=== PATIENT | male | born 1945 | race Caucasian/White ===

== ENCOUNTER 2023-09-19 08:39 | Outpatient (OUT) | payer MEDICARE, SELFPAY ==
--- NOTE | 2023-09-19 09:09 | US_ITS ---
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 FINDINGS: REGION: Right leg THROMBI: None. COMPRESSIBILITY: Normal compressibility. FLOW: Normal waveform and antegrade flow between 5 and 20 cm/s. OTHER: None. US/US venous doppler LE RT IMPRESSION: 1. No deep vein thrombus within the right lower extremity. Electronically authenticated by: FLORENCE NEWMAN Date: 09/19/2023 10:31
== END 2023-09-19 08:40 | disposition home or self-care (01) ==
LOC: RAD 08:53
PROVIDERS: PCP Family Medicine; Visit Provider Family Medicine
DX: M79.604 Pain in right leg (principal); I87.2 Venous insufficiency (chronic) (peripheral)
CPT/HCPCS: 93971

== ENCOUNTER 2023-10-09 07:20 | Outpatient (OUT) | payer MEDICARE, SELFPAY ==
[2023-10-09 08:05] LABS: Alanine Aminotransferase 29 U/L (16-63); Anion Gap 8.1; Aspartate Amino Transferase 20 U/L (15-37); BUN Creatinine Ratio 23.7; Calcium 8.9 mg/dL (8.5-10.1); Carbon Dioxide 32.8 mmol/L (21.0-32.0); Chloride 104 mmol/L (98-107); Chol HDL Ratio 1.9; Cholesterol 129 mg/dL (<=200); Estimated GFR (African America >60 (>=60); Estimated GFR (Non-African Ame >60 (>=60); Glucose 100 mg/dL (74-106); HDL Cholesterol 67 mg/dL (40-60); Potassium 3.9 mmol/L (3.5-5.1); Sodium 141 mmol/L (136-145); Triglycerides 82 mg/dL (<=150); VLDL CHOLESTEROL 16.4 mg/dL
== END 2023-10-09 07:21 | disposition home or self-care (01) ==
LOC: LAB 07:22
PROVIDERS: PCP Family Medicine; Visit Provider Nurse Practitioner
DX: E78.5 Hyperlipidemia, unspecified (principal)
CPT/HCPCS: 36415; 80048; 80061; 84450; 84460

== ENCOUNTER 2023-11-23 08:24 | Outpatient (RCR) | payer MEDICARE, SELFPAY | END 2023-12-01 12:25 | disposition home or self-care (01) | LOC: PT 08:24 | PROVIDERS: PCP Family Medicine; Visit Provider Family Medicine | DX: M54.42 Lumbago with sciatica, left side (principal); M51.37 Other intervertebral disc degeneration, lumbosacral region | CPT/HCPCS: 97110; 97140; 97162 ==

== ENCOUNTER 2023-12-08 07:20 | Outpatient (OUT) | payer MEDICARE, SELFPAY ==
--- OUTSIDE RECORDS SUMMARY | 2023-12-08 07:24 | XMS_ITS | CCD ---
Author Name Unknown Address [address] [place] [address] Organization [facility] Care Team Providers Care Radar Scientist Name Role Phone Grady Romeo Unavailable Unavailable Unavailable MAGDI, DR STRICKLAND Admitting Unavailable MAGDI, DR STRICKLAND Attending Unavailable AGUEDA, DR DUONG Primary Care Unavailable MAGDI, DR STRICKLAND Consulting Unavailable ZAC, DR KIM Walsh Consulting Unavailable EDIE NAGEL Admitting Unavailable EDIE NAGEL Attending Unavailable AGUEDA, DR DUONG Primary Care Unavailable EDIE NAGEL Consulting Unavailable Grady Romeo Primary Care Unavailab ALEJANDRO Benitez Attending Unavailable ALEJANDRO Pryor Referring Unavailable GRADY ROMEO Primary Care Physician Unavail able MD Cj LICONA Attending Unavailable MD Cj LICONA Attending Unavailable MD Grady Romeo Primary Care Provider MD Ender Aguilar Jr Emergency Provider GRADY ROMEO Attending Unavailable GRADY ROMEO Attending Unavailable Grady Romeo MD Primary Care Provider DOV MAZA Attending Unavailable GRADY ROMEO Primary Care Unavailab Ender Cintron Jr Admitting Unavailable Grady Romeo Primary Care Unavailable Ender Aguilar Jr Attending Grady Hernandez Attending Unavailable Grady Romeo Primary Care Unavailable Grady Romeo Admitting Unavailable MD Grady Romeo Attending Provider [phone] Allergies Allergy Classification Reported Allergen(s) Allergy Type Date of Onset Reaction(s) Facility (7 sources) Clarithromycin; Translations: [clarithromycin] Drug Allergy 3 Unknown [facility] (1 source) Clarithromycin Drug Allergy [facility] (1 source) Finasteride Drug Allergy [facility] (1 source) Naproxen Drug Allergy [facility] (1 source) Erythromycin Drug Allergy 3 [facility] Repository Medications Current Medications Medication Drug Class(es) Dates Sig (Normalized) Sig (Original) acetaminophen 325 mg / HYDROcodone bitartrate 5 mg oral tablet (2 sources) Opioid Agonist Start: 09-11-2023 take 1 tablet by mouth every six hours Hydrocodone-Acet aminophen Active 1 - 2 TAB PO Q6H 15 September 11, 2023 aspirin 81 mg oral tablet (7 sources) Platelet Aggregation Inhibitor, Nonsteroidal Anti-inflammatory Drug Start: 08-07-2020 take 81 mg by mouth once daily Aspirin Active 81 MG PO Daily July 28, 2021 11:00pm take 1 tablet by mouth once bulmaro y aspirin 81 mg EC tablet Take 1 tablet (81 mg) by mouth once daily. 0 Active atorvastatin 40 mg oral tablet (8 sources) HMG-CoA Reductase Inhibitor Start: 08-07-2020 End: 10-18-2024 take 1 tablet by mouth once daily atorvastatin (Lipitor) 40 mg tablet Indications: Mixed hyperlipidemia Take 1 tablet (40 mg) by mouth once daily. 90 tablet 3 10/19/2023 10/18/2024 Active bifidobacterium animalis [id number] unt / lactobacillus acidophilus [id number] unt oral capsule (4 sources) L. acidophilus/Bifid. animalis 32 billion cell capsule Take by mouth. 0 Active Probiotic CAPS 1 00 mg daily Quantity: 0 Refills: 0 Ordered: 08-Oct-2021 DO Active docusate sodium 50 mg / sennosides, longterm 8.6 mg oral tablet (2 sources) Start: 09-11-2023 take 2 tablets by mouth once daily at bedtime Sennosides-Docusate Sodium (Senna Plus) 8.6-50 mg tablet Active 2 TAB PO Daily at bedtime September 11, 2023 12:00am Lactobacillus acidophilus (1 source) Start: 08-07-2020 Acidophilus Daily, Refill(s) 0 Start Date: 08/07/20 Status: Ordered Lactobacillus Combination No.4 (Probiotic) 3 billion cell Capsule (2 sources) Start: 07-29-2021 take 3 capsules by mouth once daily Lactobacillus Combination No.4 (Probiotic) 3 billion cell Capsule Active 3000 MMU CELLS PO Daily July 28, 2021 11:00pm methylPREDNISolone 4 mg oral tablet (2 sources) Corticosteroid Start: 09-11-2023 take 1 tablet by mouth once Methylprednisolone (Medrol (Carmine)) 4 mg tablets,dose pack Active 1 dose pk PO per package directions September 11, 2023 12:00am Multivitamin preparation (2 sources) Start: 07-29-2021 take 1 tablet by mouth once daily Multivitamin Active 1 TAB PO Daily July 28, 2021 11:00pm multivitamin with iron (pediatric multivitamin-iron) tablet chewable split tablet (1 source) multivitamin wit h iron (pediatric multivitamin-iron) tablet chewable split tablet Take 1 half tablet by mouth once daily. 0 Active Omeprazole (7 sources) Proton Pump Inhibitor Start: 09-20-2021 omeprazole Oral, Daily, Refills(s) 0 Start Date: 09/20/21 Status: Ordered Start: 07-29-2021 take 40 mg by mouth twice bulmaro y Omeprazole Active 40 MG PO Twice daily 112 56 July 28, 2021 11:00pm One-A-Day REGISTRAT-MAPI Formu la (1 source) Start: 08-07-2020 One-A-Day Lavaboom Formula Oral, Daily, Refill(s) 0 Start Date: 08/07/20 Status: Ordered Completed/Discontinued Medications Medication Drug Class(es) Dates Sig (Normalized) Sig (Original) Multi Vitamin TABS (3 sources) Multi Vitamin TA BS TAKE 1 TABLET DAILY. Quantity: 0 Refills: 0 Ordered: 08-Oct-2021 DO Active Problems Active Problems Problem Classification Problem Date Documented Da te Episodic/Chronic Acute myocardial infarction (1 source) Myocardial infarction 08-07-2020 Chronic Calculus of urinary tract (6 sources) Calculus of kidney; Translations: [Kidney stone] Onset: 09-12-2022 Episodic Coronary atherosclerosis and other heart disease (14 sources) History of myocardial infarction; Translations: [Old myocardial infarction] Onset: 10-10-2022 Chronic Disorders of lipid metabolism (9 sources) Hyperlipidemia; Translations: [Other and unspecified hyperlipidemia] Onset: 10-15-2022 08-07-2020 Chronic Essential hypertension (4 sources) Essential hypertension; Translations: [Essential (primary) hypertension] Onset: 10-19-2023 10-19-2023 Chronic Genitourinary symptoms and ill-defined conditions (3 sources) Nocturia; Translations: [Nocturia] Onset: 12-12-2022 Episodic Hyperplasia of prostate (10 sources) Benign prostatic hyperplasia; Translations: [Hypertrophy (benign) of prostate without urinary obstruction and other lower urinary tract symptom (LUTS)] Onset: 10-15-2022 Chronic Other circulatory disease (1 source) Cardiac function test normal; Translations: [Normal cardiac ejection fraction] Episodic Other circulatory disease (1 source) Elevated blood-pressure reading without diagnosis of hypertension; Translations: [Elevated blood-pressure reading, without diagnosis of hypertension] Onset: 10-19-2023 10-19-2023 Episodic Other connective tissue disease (2 sources) Pain in right lower limb; Translations: [Pain in right leg] 09-11-2023 Episodic Other connective tissue disease (1 source) Other symptoms and signs involving the nervous system; Translations: [Other symptoms and signs involving the nervous system] Onset: 11-10-2023 Episodic Other connective tissue disease (1 source) Pain in left lower limb; Translations: [Pain in left leg] Onset: 09-11-2023 Episodic Other connective tissue disease (1 source) Pain in right leg; Translations: [Pain in right leg] Onset: 09-11-2023 Episodic Other nervous system disorders (1 source) Other chronic pain; Translations: [Other chronic pain] Onset: 11-10-2023 Chronic Other nutritional; endocrine; and metabolic disorders (4 sources) Overweight in adulthood with body mass index of 25 or more but less than 30; Translations: [Overweight] Episodic Other screening for suspected conditions (not mental disorders or infectious disease) (1 source) Raised prostate specific antigen 03-02-2021 Episodic Spondylosis; intervertebral disc disorders; other back problems (1 source) Other intervertebral disc degeneration, lumbar region; Translations: [Other intervertebral disc degeneration, lumbar region] Onset: 11-10-2023 Chronic Spondylosis; intervertebral disc disorders; other back problems (5 sources) Lumbar radiculopathy; Translations: [Radiculopathy, lumbar region] Onset: 09-11-2023 09-11-2023 Episodic Past or Other Problems Problem Classification Problem Date Documented Da te Episodic/Chronic Unclassified (3 sources) Never smoked tobacco; Translations: [Never a smoker] Unclassified (1 source) Onset: 10-19-2023 10-19-2023 Results Test Name Value Interpretation Reference Range Facility XR lumbar spine AP/LAT/FLX/E XTon 11-10-2023 XR lumbar spine AP/LAT/FLX/EXT [facility] Main [address] [address] XRay Report Signed Patient: Farrukh Babb MR#: [id number] : 1945 Acct:[id number] Age/Sex: 78 / M ADM Date: 11/10/23 Loc: XD Room: Type: [facility] Attending Dr: Grady Romeo MD Copies to: Grady Romeo MD Ordering Provider: Grady Romeo MD Date of Service: 11/10/23 XR/XR lumbar spine AP/LAT/FLX/EXT: Evaluation of chronic back pain AP with lateral neutral, flexion and extension views Lumbar Spine HISTORY: Chronic back pain with radiation into legs COMPARISON: 09/11/2023 POSTSURGICAL CHANGES: None BONY ALIGNMENT: Adequate HYPERMOBILITY:No hypermobility LISTHESIS:Minor degenerative listhesis FRACTURE: None DEGENERATIVE CHANGES: Extensive L5-S1 spondylosis. Lower lumbar hypertrophic facet changes. SOFT TISSUES: Atherosclerosis. BONY MINERALIZATION:Adequat e XR/XR lumbar spine AP/LAT/FLX/EXT IMPRESSION: No hypermobility. Similar Lower lumbar degeneration Impression dictated by: Bg Gurrola M.D.11/10/2023 9:29 PM Dictation Location: [place] [address] Transcribed By: [facility] 11/10/232128 Dictated By: Bg Gurrola DO 11/10/232126 Signed By: 11/10/232128 Normal [facility] XR hip RT min 2V(w/wo pelvis )*on 09-11-2023 XR hip RT min 2V(w/wo pelvis)* [facility] Main [address] [address] XRay Report Signed Patient: Farrukh Babb MR#: [id number] : 1945 Acct:[id number] Age/Sex: 78 / M ADM Date: 09/11/23 Loc: ER Room: Type: [facility] ER Attending Dr: Copies to: Ender Aguilar Jr, MD Ordering Provider: Ender Aguilar Jr, MD Date of Service: 09/11/23 XR/XR hip RT min 2V(w/wo pelvis)*: R hip pain rad down leg XR hip RT min 2V(w/wo pelvis)* 09/11/2023 2:54 AM SIGNS AND SYMPTOMS: Right hip pain, right inguinal pain, pain radiates down right leg PROTOCOL: Frontal radiograph of the pelvis with frontal and frog-leg views of the right hip COMPARISON: None FINDINGS: The bones are in anatomic alignment. The bony ring of the pelvis is intact. There is no fracture or dislocation. Postoperative changes are noted along the lower abdominal wall suggesting previous hernia repair. XR/XR hip RT min 2V(w/wo pelvis)* IMPRESSION: No fracture or dislocation. Impression dictated by: Micheal Jett M.D.09/11/2023 11:03 AM Dictation Location: [place] [address] Transcribed By: [facility] 09/11/23 1103 Dictated By: Micheal Jett II, MD 09/11/23 1101 Signed By: 09/11/23 1103 Normal [facility] XR lumbar spine 2-3V*on XR lumbar spine 2-3V* [facility] [place] [address] XRay Report Signed Patient: Farrukh Babb MR#: [id number] : 1945 Acct:[id number] Age/Sex: 78 / M ADM Date: 09/11/23 Loc: ER Room: Type: [facility] ER Attending Dr: Copies to: Ender Aguilar Jr, MD Ordering Provider: Ender Aguilar Jr, MD Date of Service: 09/11/23 XR/XR lumbar spine 2-3V*: R hip pain rad down leg XR lumbar spine 2-3V* 09/11/2023 2:54 AM SIGNS AND SYMPTOMS: R hip pain rad down leg PROTOCOLS: Frontal and lateral radiographs of the lumbar spine COMPARISON: 05/02/2005 FINDINGS: The alignment, development and bony structures are normal. There is no fracture or destructive lesion. There is severe disc height loss at L5-S1. There is mild disc height loss with anterior osteophyte formation at T11-T12. The sacrum and sacroiliac joints are normal. Atherosclerotic changes are present in the abdominal aorta. XR/XR lumbar spine 2-3V* IMPRESSION: No fracture or subluxation. Similar disc degenerative changes are noted, greatest at L5-S1. Impression dictated by: Micheal Jett M.D.09/11/2023 11:04 AM Dictation Location: [place] [address] Transcribed By: [facility] 09/11/231103 Dictated By: Micheal Jett II, MD 09/11/231102 Signed By: 09/11/231103 [facility] Ambulatory Visit Summaryon 0 12-12-2022 Ambulatory Visit Summary FARRUKH BABB :1945 Visit Date:12/12/2022 Ambulatory Visit Instructions Your Diagnosis BPH with obstruction/lower urinary tract symptoms Nocturia Kidney stones Tests Performed Urnls Dip Stick Auto w/o Microscopy POC 14251 XR Abdomen 1 View -- Results Pending -- Please visit your patient portal for your results or contact your primary care physician. Your Care Team Attending Physician - MAGDI MAHONEY, Cj Dwyer Primary Care Physician - AGUEDA MAHONEY, GRADY Garcia This Is Your Medications List Contact prescribing physician if questions or concerns aspirin (aspirin 81 mg oral tablet) atorvastatin (atorvastatin 40 mg Tab) lactobacillus acidophilus (Acidophilus) multivitamin (One-A-Day Men's Health Formula) omeprazole Procedures Performed Endoscopy (08/20/2021), Colonoscopy (08/06/2021), Transurethral resection of prostate (03/25/2021), Cystoscope (03/02/2021), Transrectal biopsy of prostate using ultrasound (US) guidance (08/25/2020), Transrectal biopsy of prostate using ultrasound (US) guidance (04/04/2017), Appendectomy, IH - Inguinal hernia, Neck class, Tonsillectomy. Discharge Vitals Heart Rate (Peripheral) 70 Respiratory Rate 16 Blood Pressure 132/74 Height 180 cm Height 71 in Weight 81.8 kg Weight 179.96 lb BMI 25.25 What to do next Scheduled Follow-Up Appointments Monday 9:45 AM EST With: Cj LICONA MD Where: [facility] Normal [facility] Patient Educationon 12-12-19 23 Patient Education Urology Kidney Stones Kidney stones are rock-like masses that form inside of the kidneys. Kidneys are organs that make pee (urine). A kidney stone may move into other parts of the urinary tract, including: ? The tubes that connect the kidneys to the bladder (ureters). ? The bladder. ? The tube that carries urine out of the body (urethra). Kidney stones can cause very bad pain and can block the flow of pee. The stone usually leaves your body (passes) through your pee. You may need to have a doctor take out the stone. What are the causes? Kidney stones may be caused by: ? A condition in which certain glands make too much parathyroid hormone (primary hyperparathyroidism). ? A buildup of a type of crystals in the bladder made of a chemical called uric acid. The body makes uric acid when you eat certain foods. ? Narrowing (stricture) of one or both of the ureters. ? A kidney blockage that you were born with. ? Past surgery on the kidney or the ureters, such as gastric bypass surgery. What increases the risk? You are more likely to develop this condition if: ? You have had a kidney stone in the past. ? You have a family history of kidney stones. ? You do not drink enough water. ? You eat a diet that is high in protein, salt (sodium), or sugar. ? You are overweight or very overweight (obese). What are the signs or symptoms? Symptoms of a kidney stone may include: ? Pain in the side of the belly, right below the ribs (flank pain). Pain usually spreads (radiates) to the groin. ? Needing to pee often or right away (urgently). ? Pain when going pee (urinating). ? Blood in your pee (hematuria). ? Feeling like you may vomit (nauseous). ? Vomiting. ? Fever and chills. How is this treated? Treatment depends on the size, location, and makeup of the kidney stones. The stones will often pass out of the body through peeing. You may need to: ? Drink more fluid to help pass the stone. In some cases, you may be given fluids through an IV tube put into one of your veins at the hospital. ? Take medicine for pain. ? Make changes in your diet to help keep kidney stones from coming back. Sometimes, medical procedures are needed to remove a kidney stone. This may involve: ? A procedure to break up kidney stones using a beam of light (laser) or shock waves. ? Surgery to remove the kidney stones. Follow these instructions at home: Medicines ? Take sptx-jye-woeoxln and prescription medicines only as told by your doctor. ? Ask your doctor if the medicine prescribed to you requires you to avoid driving or using heavy machinery. Eating and drinking ? Drink enough fluid to keep your pee pale yellow. You may be told to drink at least 8?10 glasses of water each day. This will help you pass the stone. ? If told by your doctor, change your diet. This may include: ? Limiting how much salt you eat. ? Eating more fruits and vegetables. ? Limiting how much meat, poultry, fish, and eggs you eat. ? Follow instructions from your doctor about eating or drinking restrictions. General instructions ? Collect pee samples as told by your doctor. You may need to collect a pee sample: ? 24 hours after a stone comes out. ? 8?12 weeks after a stone comes out, and every 6?12 months after that. ? Strain your pee every time you pee (urinate), for as long as told. Use the strainer that your doctor recommends. ? Do not throw out the stone. Keep it so that it can be tested by your doctor. ? Keep all follow-up visits as told by your doctor. This is important. You may need follow-up tests. How is this prevented? To prevent another kidney stone: ? Drink enough fluid to keep your pee pale yellow. This is the best way to prevent kidney stones. ? Eat healthy foods. ? Avoid certain foods as told by your doctor. You may be told to eat less protein. ? Stay at a healthy weight. Where to find more information ? National Kidney Foundation (NKF): www.kidney.org ? [employer] (UCF): www.urologyhealth.org Contact a doctor if: ? You have pain that gets worse or does not get better with medicine. Get help right away if: ? You have a fever or chills. ? You get very bad pain. ? You get new pain in your belly (abdomen). ? You pass out (faint). ? You cannot pee. Summary ? Kidney stones are rock-like masses that form inside of the kidneys. ? Kidney stones can cause very bad pain and can block the flow of pee. ? The stones will often pass out of the body through peeing. ? Drink enough fluid to keep your pee pale yellow. This information is not intended to replace advice given to you by your health care provider. Make sure you discuss any questions you have with your health care provider. Document Released: 04/10/2009 Document Revised: 03/10/2020 Document Reviewed: 03/10/2020 dooub Patient Education ? 2019 [employer]. [facility] Urology Office/Clinic Noteon 12-12-2022 Urology Office/Clinic Note Chief Complaint 1 year with KUB HPI Staff Pt is her for 1 year f/u with KUB. Previous dx of BPH with obstruction/ LUTS, nocturia, urinary urgency and kidney stones. Current KUB done 09/12/22 showed a 7mm right nephrolith. Dysuria: no Incomplete bladder emptying: no Hematuria: no Frequency: no Urgency: no Nocturia: 2-3x Stream: good no straining Leaking: no Post void dripping: no Wearing pads/ Depends: no Urge incontinence: no Stress incontinence: no Incontinence without Sensory Awareness: no Abdominal pain: no Flank pain: no Sexual complaints: no History of Present Illness I have reviewed and verified the staff HPI to be accurate for this encounter. Review of Systems PHQ Score Initial Depression Screen Score: 0 ROS - Provider Constitutional: denies weight loss, denies hot flashes. Eyes: denies eye problems. Gastrointestinal: denies nausea, denies vomiting. Cardiovascular: denies chest pain or angina. Integumentary: no dryness Musculoskeletal: denies musculoskeletal symptoms. ENMT: denies otolaryngeal symptoms. Respiratory: no shortness of breath. Heme/Lymph: denies easy bleeding tendency, denies easy bruising tendency. Psychiatric: no confusion, no anxiety. Genitourinary: denies dysuria, denies hematuria, denies discharge, denies urinary frequency, denies urinary hesitancy, denies nocturia, denies incontinence, denies genital sores, denies decreased libido, and denies erectile dysfunction. Physical Exam Vitals & Measurements HR: 70(Peripheral) RR: 16 BP: 132/74 HT: 71 in HT: 180 cm WT: 81.8 kg WT: 179.96 lb BMI: 25.25 General Appearance: alert, no distress, well nourished, well developed male. Genitourinary: normal scrotum, normal testes, normal urethra, normal epididymis, normal vas deferens/spermatic cord. Flank Pain: none. Bladder: nonpalpable. Assessment/Plan 1. BPH with obstruction/lower urinary tract symptoms (N40.1: Benign prostatic hyperplasia with lower urinary tract symptoms) S/p TURP done 03/25/21. Negative pathology report Pt is currently not taking any BPH meds. PSA was done 09/01/21 1.33. S/P TRUS/BX done 03/25/20, Negative path. We are no longer checking pt's PSA. Overall pt has no urinary complaints at this time. Will continue to monitor. 2. Nocturia (R35.1: Nocturia) Moderate, 2-3 times per night. He is also a light sleeper, and has been doing this for many years. 3. Kidney stones (N20.0: Calculus of kidney) S/P R. ESWL 06/10/21. Current KUB done 09/12/22 showed a 7mm right nephrolith. and possible Left 2mm calcification lateral to the left L4 transverse process. Discussed with pt that we will check a KUB in 1 year and if his stone continues to grow we will need to intervene. Pt understands and agrees. Follow-up With When Contact Information MAGDI MAHONEY, Cj Dwyer, ANTONY In 1 year 12/12/2023 EST [facility] [address], [place] [address] [phone] Additional Instructions: KUB Patient Education Kidney Stones, [id number] Jeaneth Chicas, personally scribed for Dr. Licona on 12/12/2022 13:32:19. . Documentation recorded by the scribe, Jeaneth Adam, accurately reflects the services(s) I performed and decisions made by me. Problem List/Past Medical History Ongoing BPH with obstruction/lower urinary tract symptoms Elevated cholesterol Elevated PSA Gross hematuria Kidney stones Myocardial infarct Nocturia Historical No qualifying data Procedure/Surgical History Endoscopy (08/20/2021), Colonoscopy (08/06/2021), Transurethral resection of prostate (03/25/2021), Cystoscope (03/02/2021), Transrectal biopsy of prostate using ultrasound (US) guidance (08/25/2020), Transrectal biopsy of prostate using ultrasound (US) guidance (04/04/2017), Appendectomy, IH - Inguinal hernia, Neck class, Tonsillectomy. Medications Acidophilus, Daily aspirin 81 mg oral tablet, Oral, Daily atorvastatin 40 mg Tab, Oral, Bedtime omeprazole, Oral, Daily One-A-Day Men's Health Formula, Oral, Daily Allergies clarithromycin (Nervousness) Social History Tobacco Never (less than 100 in lifetime) Tobacco Use:., 09/20/2021 Never (less than 100 in lifetime) Tobacco Use:. Never Smokeless Tobacco Use:., 03/02/2021 Family History Myocardial infarct: Father. Immunizations Vaccine Date Status SARS-CoV-2 (COVID-19) mRNA BNT-162b2 vax 01/01/2021 Recorded SARS-CoV-2 (COVID-19) mRNA BNT-162b2 vax 12/11/2020 Recorded influenza virus vaccine, inactivated 08/06/2020 Recorded Lab Results Ambulatory Point of Care Results Bilirubin Urine Dipstick: Negative (12/12/22 12:41:00) Glucose Urine Dipstick: Negative (12/12/22 12:41:00) Ketones Urine Dipstick: Trace - 5 mg/dl (12/12/22 12:41:00) Leukocytes Urine Dipstick: Negative (12/12/22 12:41:00) Nitrite Urine Dipstick: Negative (12/12/22 12:41:00) Protein Urine Dipstick: Negative (12/12/22 12:41:00) Specific Bear Urine (more content not included)... Normal [facility] Comment on above: Result Comment: Elec tronically Signed By: Cj LICONA MD\.br\Date and Time Signed: 12/12/22 13:35 EST\.br\Electronically Co-Signed By: Jeaneth Adam MA\.br\Date and Time Co-Signed: 12/12/22 13:32 EST Office Visit (Cardiology)on 10-19-2022 Follow-up visit Diagnoses/Problems Assessed Normal coronary angiogram (V72.85) 2007 cardiac cath with angiographically normal coronaries Current daily activity greater than 4 METS without concerning symptoms Normal cardiac ejection fraction 2007 cardiac cath LVEF 50% Hyperlipidemia (272.4) (E78.5) High intensity statin Managed by [facility] October 2022 HDL 53, LDL 41 Overweight with body mass index (BMI) of 25 to 25.9 in adult (278.02,V85.21) (E66.3,Z68.25) Reviewed the merits of healthy lifestyle choices on overall cardiovascular health. Orders Hyperlipidemia Renew: Atorvastatin Calcium 40 MG Oral Tablet; TAKE 1 TABLET DAILY Hyperlipidemia, Normal cardiac ejection fraction, Normal coronary angiogram ALT - Alanine Aminotransferase, Serum; Status:Active; Requested for:[id number]; AST; Status:Active; Requested for:[id number]; Basic Metabolic Panel; Status:Active; Requested for:[id number]; Lipid Panel; Status:Active; Requested for:[id number]; Overweight with body mass index (BMI) of 25 to 25.9 in adult Healthy Weight Tips; Status:Complete; Done: [id number] Patient Instructions Please bring all medicines, vitamins, and herbal supplements with you when you come to the office. Prescriptions will not be filled unless you are compliant with your follow up appointments or have a follow up appointment scheduled as per instruction of your physician. Refills should be requested at the time of your visit. PLAN: Through informed decision making process incorporating patients unique circumstances, the following treatment plan will be initiated: 1. Prescription drug management of cardiovascular medication for efficacy, adherence to treatment, side effect assessment and polypharmacy. Current treatment clinically warranted and to continue without modifications. 2. Return for follow-up; in the interim, contact the office if new symptoms arise. Dr. Maza annual f/u with labs prior Discussed the dynamic nature of coronary artery disease and the importance of seeking medical attention if new symptoms arise. Chief Complaint Annual f/u: 'I am doing fine' FARRUKH BABB is being seen for an annual follow-up of primary prevention. Patient presents to the office today ambulatory with steady gait. Last evaluated in clinic Dr. Lorenzana October 2021. He has followed routinely with Dr. Lorenzana since 2008 hospitalization for atypical chest pain and at that time cardiac cath angiographically normal coronaries with normal LVEF. He has managed primarily for primary prevention. No prior history of myocardial infarction, cardiomyopathy or dysrhythmias. Annual labs completed October 2022 including Chem-6 lipid profile AST, ALT. Unremarkable. He denies any hospitalizations or significant changes to interval medical history since last office follow-up. He does not follow routinely with primary care physician. He has been seen by urology due to asymptomatic nephrolithiasis and reports GI work-up over the summer. He has extremely pleasant 77-year-old gentleman who resides home alone. He attends to his own ADLs and functional ADLs. 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 He has no stairs at home. He is able to go to the grocery store, mow the lawn with a push mower without any type of exertional symptoms. He ambulated in from the parking lot without concerns. He denies any change in exercise capacity or functional tolerance since last office follow-up. Primary prevention has been remaining viewed and remains optimal. Discussed the dynamic nature of coronary artery disease and the importance of seeking medical attention if new symptoms arise. History of Present Illness The patient states he has been generally doing well since the last visit. Comorbid Illnesses: hyperlipidemia. Symptoms: denies chest pain at rest, denies exertional chest pain, denies dyspnea, denies fatigue, stable exercise intolerance, denies palpitations, denies edema, denies orthopnea, denies claudication, denies dizziness and denies orthostatic dizziness. Associated symptoms: no syncope. His symptoms do not limit his activities. Disease Monitoring: The patient has had a stable weight. Medications: the patient is adherent with his medication regimen. He denies medication side effects. Current Meds Medication NameInstruction Aspirin EC 81 MG Oral Tablet Delayed ReleaseTAKE 1 TABLET DAILY. Atorvastatin Calcium 40 MG Oral TabletTAKE 1 TABLET DAILY. Multi Vitamin TABSTAKE 1 TABLET DAILY. Omeprazole 40 MG Oral Capsule Delayed ReleaseTAKE 1 CAPSULE TWICE DAILY. Probiotic BXUB219 mg daily Allergies Medication clarithromycin Allergy; Recorded By: Amanda Watkins; 09/23/2021 10:22:16 AM Social History Problems Alcohol use (V49.89) (Z78.9) Caffeine use (V49.89) (Z78.9) 1 cup of coffee Never a smoker No illicit drug use Review of Systems Constitutional: not feeling tired. Cardiovascular: no chest pain, no palpitations and no low (more content not included)... Normal [facility] Tobacco Screening.on Adult depression screening assessment No [facility] DO Work Phone: Fall risk assessment a) No falls within the last year [facility] DO Work Phone: Tobacco use status [facility]PHS b) No [facility] [employer] [facility] DO Work Phone: LIPID PROFILEon 10-10-2022 CHOL-HDL RATIO NORM SEE BELOW Normal [facility] Comment on above: Result Comment: 3.3 - 4.4 LOW RISK 4.4 - 7.1 AVERAGE RISK 7.1 - 11.0 MODERATE RISK >11.0 HIGH RISK Performed By: #### B MP, LIPID, AST, ALT #### [facility] [address] [address] [address] Marisa Curtis Cholesterol [Mass/Vol] 111 mg/dL Normal <=200 [facility] Comment on above: Performed By: #### B MP, LIPID, AST, ALT #### [facility] [address] [address] [address] Marisa Curtis Cholesterol in HDL [Mass/Vol] 53 mg/dL Normal 40-60 [facility] Comment on above: Performed By: #### B MP, LIPID, AST, ALT #### [facility] [address] [address] [address] Marisa uCrtis Cholesterol in LDL [Mass/Vol] 41.6 mg/dL Normal [facility] Comment on above: Performed By: #### B MP, LIPID, AST, ALT #### [facility] [address] [address] [address] Marisa Curtis Cholesterol.total/ Cholesterol in HDL [Mass ratio] 2.1 {ratio} Normal [facility] Comment on above: Performed By: #### B MP, LIPID, AST, ALT #### [facility] [address] [address] [address] Marisa Curtis HDL NORMAL > or = 60 mg/dl - LO W CARDIOVASCULAR RISK <40 mg/dl - HIGH CARDIOVASCULAR RISK Normal [facility] Comment on above: Performed By: #### B MP, LIPID, AST, ALT #### [facility] [address] [address] [address] Marisa Curtis LDL CALC NORMAL SEE BELOW Normal [facility] Comment on above: Result Comment: <100 mg/dl OPTIMAL 100 - 129 mg/dl NEAR OR ABOVE OPTIMAL 130 - 159 mg/dl BORDERLINE HIGH 160 - 189 mg/dl HIGH >190 mg/dl VERY HIGH Performed By: #### B MP, LIPID, AST, ALT #### [facility] [address] [address] [address] Marisa Curtis Triglyceride [Mass/Vol] 82 mg/dL Normal <=150 [facility] Comment on above: Performed By: #### B MP, LIPID, AST, ALT #### [facility] [address] [address] [address] Marisa Curtis VLDL CALC 16.4 mg/dL Normal [facility] Comment on above: Performed By: #### B MP, LIPID, AST, ALT #### [facility] [address] [address] [address] Marisa Curtis PROF CHEM 8 (BAS METB)on Anion gap [Moles/Vol] 10.1 mmol/L Normal [facility] Comment on above: Performed By: #### B MP, LIPID, AST, ALT #### [facility] [address] [address] [address] Marisa Curtis Calcium [Mass/Vol] 9.1 mg/dL Normal 8.5-10.1 [facility] Comment on above: Performed By: #### B MP, LIPID, AST, ALT #### [facility] [address] [address] [address] Marisa Curtis Chloride [Moles/Vol] 104 mmol/L Normal 98-107 [facility] Comment on above: Performed By: #### B MP, LIPID, AST, ALT #### [facility] [address] [address] [address] Marisa Curtis CO2 [Moles/Vol] 30.9 mmol/L Normal 21.0-32.0 [facility] Comment on above: Performed By: #### B MP, LIPID, AST, ALT #### [facility] [address] [address] [address] Marisa Curtis Creatinine [Mass/Vol] 0.92 mg/dL Normal 0.70-1.30 [facility] Comment on above: Performed By: #### B MP, LIPID, AST, ALT #### [facility] [address] [place] [address] Dr. Marisa Curtis EGFR-AF SOMALI >60 Normal >=60 [facility] Comment on above: Performed By: #### B MP, LIPID, AST, ALT #### [facility] [address] [place] [address] Dr. Marisa Curtis EGFR-NON AF SOMALI >60 Normal >=60 [facility] Comment on above: Performed By: #### B MP, LIPID, AST, ALT #### [facility] [address] [place] [address] Dr. Marisa Curtis Glucose [Mass/Vol] 100 mg/dL Normal 74-106 [facility] Comment on above: Performed By: #### B MP, LIPID, AST, ALT #### [facility] [address] [address] [address] Marisa Curtis Potassium [Moles/Vol] 4.0 mmol/L Normal 3.5-5.1 [facility] Comment on above: Performed By: #### B MP, LIPID, AST, ALT #### [facility] [address] [place] [address] Dr. Marisa Curtis Sodium [Moles/Vol] 141 mmol/L Normal 136-145 [facility] Comment on above: Performed By: #### B MP, LIPID, AST, ALT #### [facility] [address] [address] [address] Marisa Curtis Urea nitrogen [Mass/Vol] 19.0 mg/dL Critically high 7.0-18.0 [facility] Comment on above: Performed By: #### B MP, LIPID, AST, ALT #### [facility] [address] [place], [place] [address] Dr. Marisa Curtis Urea nitrogen/Creatinin e [Mass ratio] 20.7 mg/mg Normal [facility] Comment on above: Performed By: #### B MP, LIPID, AST, ALT #### [facility] [address] [address] [address] Marisa Bailey 10-10-2022 AST [Catalytic activity/Vol] 23 U/L Normal 15-37 [facility] Comment on above: Performed By: #### B MP, LIPID, AST, ALT #### [facility] [address] [place] [address] Dr. [facility]2022 ALT [Catalytic activity/Vol] 28 U/L Normal 16-63 [facility] Comment on above: Performed By: #### B MP, LIPID, AST, ALT #### [facility] [address] [place] [address] Dr. Marisa Curtis RAD - MISFormerly [facility] 09-19-2022 RAD - MIS [id number] Normal [facility] XR KUB 1 VIEWon 09-12-2022 XR KUB 1 VIEW EXAMINATION: XR KUB 1 VIEW HISTORY: Kidney stone COMPARISON: 06/10/2021 FINDINGS: KIDNEY/URETER - RIGHT: 7 mm right nephrolith KIDNEY/URETER - LEFT: 2 mm calcification lateral to the left L4 transverse process PELVIS: No visible ureteral calcifications. Any visible calcifications favor phleboliths. BOWEL: No abnormal dilation or deviation. BONES: No acute abnormality. OTHER: Multiple surgical anchors throughout the pelvis IMPRESSION: 7 mm right nephrolith Possible tiny left mid ureterolith Electronically authenticated by: KIM FRANK Date: 2022-09-12 17:32 Normal [facility] Basic Metabolic Panelon 04-2 8-2022 Anion gap [Moles/Vol] 15 mmol/L Normal 12-20 [facility] Comment on above: Result Comment: Effe ctive 11/11/2019 reference range changed. Performed By: #### RONALD Barahona MP #### [facility] [address] [place], [place] [id number] Calcium [Mass/Vol] 9.5 mg/dL Normal 8.6-10.2 [facility] Work[employer] Comment on above: Performed By: #### RONALD Barahona MP #### [facility] [address] [place], [place] [id number] Chloride [Moles/Vol] 105 mmol/L Normal 98-107 [facility] Comment on above: Performed By: #### RONALD Barahona MP #### [facility] [address] [place], [place] [id number] CO2 [Moles/Vol] 24 mmol/L Normal 20-31 [facility] Comment on above: Performed By: #### RONALD Barahona MP #### [facility] [address] [place], [place] [id number] Creatinine [Mass/Vol] 0.8 mg/dL Normal 0.7-1.4 [facility] Comment on above: Performed By: #### RONALD Barahona MP #### [facility] [address] [place], [place] [id number] eGFRAA 119 mL/min/1.73m2 Normal >60 [facility] Specialist Comment on above: Performed By: #### RONALD Barahona MP #### [facility] [address] [place], [place] [id number] eGFRNAA 98 mL/min/1.73m2 Normal >60 [facility] Special[facility] Comment on above: Performed By: #### RONALD Barahona MP #### [facility] [address] [place], [place] [id number] Glucose [Mass/Vol] 100 mg/dL High 65-99 [facility] [place] [facility] Work[facility] Comment on above: Result Comment: For FASTING Glucose --- ADA reference ranges: Normal 65-99 mg/dl Prediabetes 100-125 Diabetes >/= 126 Performed By: #### RONALD Barahona MP #### [facility] [address] [place], [place] [id number] Potassium [Moles/Vol] 4.2 mmol/L Normal 3.5-5.5 [facility] Comment on above: Performed By: #### B RAYMUNDO LIPRashida #### [facility] [address] [place], [place] [id number] Sodium [Moles/Vol] 140 mmol/L Normal 135-146 [facility] Comment on above: Performed By: #### B RAYMUNDO LIPD #### [facility] [address] [place], [place] [id number] Urea nitrogen [Mass/Vol] 17 mg/dL Normal 7-25 [facility] Comment on above: Performed By: #### B RAYMUNDO LIPRashida #### [facility] [address] [place], [place] [id number] Lipid Panelon 03-03-2022 Cholesterol [Mass/Vol] 118 mg/dL Low 125-200 [facility] Comment on above: Result Comment: Low risk < 200mg/dL Borderline risk 201-239 mg/dl High risk > or equal to 240 Performed By: #### B RAYMUNDO LIPD #### [facility] [address] [place], [place] [id number] Cholesterol in HDL [Mass/Vol] 45 mg/dL Normal >40 [facility] Comment on above: Result Comment: High Cardiovascular Risk HDL <40 mg/dL Low Cardiovascular Risk HDL > or equal to 60 mg/dl Performed By: #### B RAYMUNDO LIPD #### [facility] [address] [place], [place] [id number] Cholesterol in LDL [Mass/Vol] 52 mg/dL Normal [facility] Comment on above: Result Comment: LDL ATP III CLASSIFICATION LDL less than 100 mg/dl Optimal LDL 100-129 mg/dl Near or above optimal LDL 130-159 Borderline high LDL 160-189 High LDL greater than 189 mg/dl Very High Performed By: #### B RAYMUNDO LIPD #### [facility] [address] [place], [place] [id number] Cholesterol in VLDL [Mass/Vol] 21 mg/dL Normal [facility] Comment on above: Performed By: #### B RAYMUNDO LIPD #### [facility] [address] [place], [place] [id number] Cholesterol.total/ Cholesterol in HDL [Mass ratio] 3 {ratio} Normal [facility] Mesh Worker Comment on above: Performed By: #### B RAYMUNDO, LIPD #### [facility] [address] [place], [place] [id number] Triglyceride [Mass/Vol] 106 mg/dL Normal 30-150 [facility] Mesh Worker Comment on above: Result Comment: TRIG ATPIII CLASSIFICATIONS TRIG less than 150 mg/dl Normal TRIG 150-199 mg/dl Borderline High TRIG 200-500 mg/dl High TRIG greather than 500 mg/dl Very High Performed By: #### B RAYMUNDO, LIPD #### [facility] [address] [place], [place] [id number] US Carotid, Bilateralon 02-05 US Carotid, Bilateral FINDINGS: Right (% stenosis)Left (% stenosis) ICA Peak Systolic Velocity (cm/sec)7184 ICA/CCA Systolic Ratio0.80.9 BILATERAL CAROTID SYSTEMS: Mild echogenic plaque throughout both carotid systems. No significant stenosis is present based on visual inspection or velocity and ratio values. Both vertebral arteries have normal cephalad-directed flow. Estimated range of stenosis*: Minimal, not hemodynamically significant *COMMENT: These estimates represent a median value within a 95% confidence interval range. They represent percent diameter ICA stenosis derived from regression curve analysis using the NASCET method and Doppler ultrasound velocities. Please note with high-grade stenosis (greater than 95%), an actual reduction in velocity will occur. Reference: Manoj Mchugh. carotid ultrasound, in RAD CLIN NA, 39 (3), Mar, 2001. Report reported and signed by Manoj Nogueira on 03/03/2022 0958 Normal [facility] Special[facility] Tobacco Screening.on 021 Fall risk assessment a) No falls within the last year -[facility] 600 DO Work Phone: Tobacco use status CP b) No -[facility] 600 DO Work Phone: Vital Signs Date Time Vital Sign Value Performing Clinician Facility 10-19-2023 08:54-0500 Diastolic blood pressure 86 mm[Hg] Dov Maza MD Work Phone: [facility] 10-19-2023 08:54-0500 Systolic blood pressure 142 mm[Hg] Dov Maza MD Work Phone: [facility] 10-19-2023 08:41-0500 Body height 180.3 cm Dov Maza MD Work Phone: [facility] 10-19-2023 08:41-0500 Body mass index (BMI) [Ratio] 24.27 kg/m2 Dov Maza MD Work Phone: [facility] 10-19-2023 08:41-0500 Body weight 78.93 kg Dov Maza MD Work Phone: [facility] 10-19-2023 08:41-0500 Heart rate 86 /min Dov Maza MD Work Phone: [facility] 09-11-2023 02:57-0500 Diastolic blood pressure 90 mm[Hg] MD Grady Romeo Work Phone: [facility] 09-11-2023 02:57-0500 Heart rate 84 /min MD Grady Romeo Work Phone: [facility] 09-11-2023 02:57-0500 Respiratory rate 16 /min MD Grady Romeo Work Phone: [facility] 09-11-2023 02:57-0500 SaO2% (BldA) [Mass fraction] 97 % MD Grady Romeo Work Phone: [facility] 09-11-2023 02:57-0500 Systolic blood pressure 162 mm[Hg] MD Grady Romeo Work Phone: [facility] 09-11-2023 02:39-0500 Body temperature 98.1 [degF] MD Grady Romeo Work Phone: [facility] 09-11-2023 02:37-0500 Body height 180.34 cm MD Grady Romeo Work Phone: [facility] 09-11-2023 02:37-0500 Body weight 79.37 kg MD Grady Romeo Work Phone: [facility] 12-12-2022 12:40-0500 Blood Pressure Location Cj LICONA [facility] 12-12-2022 12:40-0500 Diastolic blood pressure 74 mm[Hg] Cj LICONA [facility] 12-12-2022 12:40-0500 Heart rate 70 /min Cj LICONA [facility] 12-12-2022 12:40-0500 Respiratory rate 16 /min Cj LICONA [facility] 12-12-2022 12:40-0500 Systolic blood pressure 132 mm[Hg] Cj LICONA [facility] 10-19-2022 09:25-0500 Body height 180.34 cm Grady Romeo Work Phone: [facility] 250 DO Work Phone: 10-19-2022 09:25-0500 Body mass index (BMI) [Ratio] 25.11 kg/m2 Grady Romeo Work Phone: [facility] 250 DO Work Phone: 10-19-2022 09:25-0500 Body surface area Derived from formula 2.02 m2 Grady Romeo Work Phone: [facility] 250 DO Work Phone: 10-19-2022 09:25-0500 Body weight 81.65 kg Grady Romeo Work Phone: [facility] 250 DO Work Phone: 10-19-2022 09:25-0500 Diastolic blood pressure 78 mm[Hg] Edadalid Garcia Hemeyer Work Phone: [facility] 250 DO Work Phone: 10-19-2022 09:25-0500 Heart rate 76 /min Edadalid Garciayer Work Phone: [facility] 250 DO Work Phone: 10-19-2022 09:25-0500 Systolic blood pressure 136 mm[Hg] Edward Jose Hemeyer Work Phone: [facility] 250 DO Work Phone: 10-08-2021 08:43-0500 Diastolic blood pressure 80 mm[Hg] Edadalid Garcia Hemeyer Work Phone: [facility] 600 DO Work Phone: 10-08-2021 08:43-0500 Systolic blood pressure 138 mm[Hg] Edadalid Garcia Hemeyer Work Phone: [facility] 600 DO Work Phone: 10-08-2021 08:31-0500 Body height 180.34 cm Baadalid Jose Joseyer Work Phone: [facility] 600 DO Work Phone: 10-08-2021 08:31-0500 Body mass index (BMI) [Ratio] 26.08 kg/m2 Grady Jose Hemeyer Work Phone: [facility] 600 DO Work Phone: 10-08-2021 08:31-0500 Body surface area Derived from formula 2.05 m2 Grady Garcia Hemeyer Work Phone: [facility] 600 DO Work Phone: 10-08-2021 08:31-0500 Body weight 84.82 kg Edward J Hemeyer Work Phone: [facility] 600 DO Work Phone: 10-08-2021 08:31-0500 Diastolic blood pressure 101 mm[Hg] Grady Romeo Work Phone: [facility] 600 DO Work Phone: 10-08-2021 08:31-0500 Heart rate 90 /min Grady Romeo Work Phone: [facility] 600 DO Work Phone: 10-08-2021 08:31-0500 Systolic blood pressure 136 mm[Hg] [facility] Work Phone: Encounters Encounter Date Encounter Type Care Provider Facility Start: 12-18-2023 ambulatory MD Cj LICONA Fac ility:[facility] Start: 11-10-2023 End: 11-10-2023 ambulatory Grady Romeo Facility:[facility] Start: 11-10-2023 End: 11-10-2023 ambulatory MD Grady Romeo Work Phone: [facility] Work Phone: Start: 11-10-2023 End: 11-10-2023 Patient encounter procedure MD Grady Romeo Work Phone: [facility] Work Phone: Start: 10-19-2023 End: 10-19-2023 ambulatory [facility] Start: 10-19-2023 End: 10-19-2023 Office outpatient visit 15 minutes Dov Maza MD Work Phone: [facility] Comment on above: Atherosclerosis of n ative coronary artery of [place] heart without angina pectoris; Mixed hyperlipidemia; Benign prostatic hyperplasia, unspecified whether lower urinary tract symptoms present; Essential hypertension Start: 10-17-2023 End: 10-17-2023 ambulatory GRADY ROMEO Not Available Start: 09-19-2023 End: 09-19-2023 ambulatory GRADY ROMEO Not Available Start: 09-11-2023 End: 09-11-2023 Emergency department patient visit Ender Aguilar Jr Facility:[facility] Start: 09-11-2023 End: 09-11-2023 Emergency department patient visit MD Grady Romeo Work Phone: [facility] Work Phone: Start: 12-12-2022 End: 12-13-2022 ambulatory MD Cj LICONA Facility:[facility] Start: 12-12-2022 End: 12-12-2022 Patient encounter procedure Cj LICONA [facility] Start: 10-19-2022 Office outpatient vi sit 15 minutes Grady Romeo Work Phone: [facility] 250 DO Work Phone: Start: 10-19-2022 ambulatory Grady Romeo Facility:[id number] Start: 10-10-2022 End: 10-11-2022 ambulatory EDIE NAGEL Facility:[facility] Start: 09-12-2022 End: 09-13-[address] CJ LICONA Facility:[facility] Start: 09-06-2022 Telephone encounter Grady ornelas Work Phone: [facility] 250 DO Work Phone: Start: 10-21-2021 Rx Renewal Grady Stephenson er Work Phone: [facility] 600 DO Work Phone: Imaging result normal Grady ornelas Work Phone: [facility] 250 DO Work Phone: Procedures Date Procedure Procedure Detail Performing Clinician Start: 11-10-2023 X-ray of lumbar spin e, four views MD Grady Romeo Work Phone: Start: 09-11-2023 Plain X-ray of right hip MD Grady Romeo Work Phone: Start: 09-11-2023 X-ray of lumbar spin e, two or three views MD Grady Romeo Work Phone: Start: 08-20-2021 Endoscopy Cj TAHIR GRACY Start: 08-06-2021 Colonoscopy Cj TAHIR GRACY Start: 03-25-2021 Transurethral prostatectomy Cj LICONA Start: 03-02-2021 Cystoscope, device (physical object) Cj LICONA Start: 08-25-2020 Transrectal biopsy o f prostate using ultrasound guidance Cj LICONA Start: 04-04-2017 Transrectal biopsy o f prostate using ultrasound guidance Cj LICONA Appendectomy Grady Garciaconstanza r Work Phone: Appendectomy Cj LICONA Colonoscopy Grady Garcia Joseye r Work Phone: Comment on above: nov 2016; Hernia repair Grady Stephenson er Work Phone: Inguinal hernia (disorder) Shannon enrique LICONA Neck class Cjanand LICONA Operative procedure on hand Grady Garciasharita Work Phone: Procedure on neck Grady Pena emeyer Work Phone: Tonsillectomy Cjanand LICONA Plan of Treatment Date Care Activity Detail Author Start: 10-19-2023 FUV, Provider: Dov Maza, Status: Pen, Time: 9:00 AM FUV, Provider: Dov Maza, Status: Pen, Time: 9:00 AM [facility] 250 DO Work Phone: Start: 09-11-2023 Plain X-ray of right hip XR hip RT min 2V(w/wo pelvis)* [facility] Start: 09-11-2023 X-ray of lumbar spine, two or three views XR lumbar spine 2-3V* [facility] Start: 09-11-2023 XR Hip - right 2 Views [facility] Start: 09-11-2023 XR Lumbar spine 2 or 3 Views [facility] Start: 10-19-2022 FUV, Provider: Edie Mathis, Status: Pen, Time: 9:30 AM FUV, Provider: Edie Mathis, Status: Pen, Time: 9:30 AM [facility] 250 DO Work Phone: Start: 10-18-2022 FUV, Provider: Rg Lorenzana, Status: Pen, Time: 8:30 AM FUV, Provider: Rg Lorenzana, Status: Pen, Time: 8:30 AM [facility] 600 DO Work Phone: Start: 06-26-2022 COVID-19 Vaccine (4 - Pfizer series) COVID-19 Vaccine (4 - Pfizer series) [facility] Start: 09-02-2016 DTaP/Tdap/Td Vaccine s (1 - Tdap) DTaP/Tdap/Td Vaccines (1 - Tdap) [facility] Start: 1995 Zoster Vaccines (1 o f 2) Zoster Vaccines (1 of 2) [facility] Start: 1963 Diabetes mellitus screening Diabetes Screening [facility] Start: 1963 Hepatitis C screening Hepatitis C Sc reening [facility] Start: 1945 Lipid panel Lipid Panel [facility] Start: 1945 Medicare Annual Wellness Visit Medicare Annual Wellness Visit (AWV) [facility] Patient Education Radiculopathy Opioids for Short-Term Treatment of Pain ED [facility] Work Phone: Patient referral [facility] Work Phone: Immunizations Immunization Date Immunization Notes Care Provider Fa derek 08-22-2022 Fluad Quadrivalent 0 .5 ML Intramuscular Prefilled Syringe Edadalid Romeo Work Phone: [facility] 250 DO Work Phone: 05-01-2022 Comirnaty 30 MCG/0.3 ML Intramuscular Suspension Edadalid Romeo Work Phone: [facility] 250 DO Work Phone: 08-10-2021 Pfizer-BioNTech COVI D-19 Vacc 30 MCG/0.3ML Intramuscular Suspension Edadalid Garcia [employer] Work Phone: [facility] 07-22-2021 Fluzone High-Dose Quadrivalent 0.7 ML Intramuscular Suspension Prefilled Syringe Edadalid Jose [employer] Work Phone: [facility] 600 DO Work Phone: 07-22-2021 influenza, injectabl e, quadrivalent, preservative free Dov Maza MD Work Phone: [facility] Work Phone: 01-01-2021 Pfizer-BioNTech COVI D-19 Vacc 30 MCG/0.3ML Intramuscular Suspension Baadalid Garcia Josesharita Work Phone: [facility] 12-11-2020 Pfizer-BioNTech COVI D-19 Vacc 30 MCG/0.3ML Intramuscular Suspension Edadalid Rmoeo Work Phone: [facility] 08-06-2020 influenza virus vacc ine, unspecified formulation Cj LICONA [facility] 07-20-2020 Fluzone High-Dose Quadrivalent 0.7 ML Intramuscular Suspension Prefilled Syringe Edadalid Jose Garciasharita Work Phone: [facility] 600 DO Work Phone: 07-20-2020 influenza, high dose seasonal, preservative-free Dov Maza MD Work Phone: [facility] Work Phone: 08-05-2019 influenza, high dose seasonal, preservative-free Baadalid Jose Agueda Work Phone: [place] [address] DO Work Phone: 08-05-2019 pneumococcal conjuga te vaccine, 13 valent Dov Maza MD Work Phone: [facility] Work Phone: 08-05-2019 pneumococcal polysaccharide vaccine, 23 valent Grady Garcia [employer] Work Phone: [facility] 09-06-2018 influenza, injectabl e, quadrivalent, preservative free Grady Garcia [employer] Work Phone: [place] [address] DO Work Phone: 08-06-2018 influenza, high dose seasonal, preservative-free Grady Garciayer Work Phone: [place] [address] DO Work Phone: 08-06-2018 pneumococcal conjuga te vaccine, 13 valent Grady Romeo Work Phone: [place] [address] DO Work Phone: 10-26-2017 influenza virus vacc ine, unspecified formulation Dov Maza MD Work Phone: [facility] Work Phone: 10-26-2017 influenza, injectabl e, quadrivalent, preservative free Grady Garcia [employer] Work Phone: [facility] 600 DO Work Phone: 09-01-2016 tetanus and diphther ia toxoids, adsorbed, preservative free, for adult use (5 Lf of tetanus toxoid and 2 Lf of diphtheria toxoid) Grady Garcia [employer] Work Phone: [facility] 600 DO Work Phone: 08-04-2016 influenza virus vacc ine, unspecified formulation Dov Maza MD Work Phone: [facility] Work Phone: 08-04-2016 influenza, high dose seasonal, preservative-free Grady Garcia [facility] Work Phone: [facility] 600 DO Work Phone: 08-04-2016 pneumococcal conjuga te vaccine, 13 valent Dov Maza MD Work Phone: [facility] Work Phone: 08-04-2016 pneumococcal polysaccharide vaccine, 23 valent [facility] Work Phone: [facility] 07-22-2015 pneumococcal conjuga te vaccine, 13 valent Grady Garcia [facility] Work Phone: [facility] 600 DO Work Phone: Payers Date Payer Category Payer Self-pay [id number] 2021 Medicare AETNA MEDICARE A ETNA CERRATO MEDICARE [id number] 2021-Present [address] [place] [address] [id number] 1959 Medicare [id number] 1945 Unknown [id number] 1945 Unknown [id number] 1945 Unknown [id number] 1945 Unknown [id number] 1945 Unknown [id number] 1945 Unknown [id number] 1945 Unknown [id number] 1945 Unknown [id number] Medicare Medicare [id number] Unknown AETNA Unknown [id number] Unknown [id number] Social History Date Type Detail Facility Start: 10-19-2023 Never a smoker Never a smoker [facility] 600 DO Work Phone: Comment on above: 1 cup of coffee; Start: 09-20-2021 End: 09-11-2023 Tobacco smoking status Never smoked tobacco (finding) [facility] Start: 10-19-2023 Sex Assigned At Male F [facility] Start: 1945 Sex Assigned At Male F [facility] Start: 10-18-2023 Tobacco use and exposure Smokeless tobacco non-user [facility] Work Phone: Start: 10-19-2023 Alcohol intake Current drinke r of alcohol (finding) [facility] Work Phone: Start: 1945 Sex Assigned At Not on file [facility] Work Phone: Start: 10-09-2023 End: 10-19-2023 Exposure to SARS-CoV-2 (event) Not sure [facility] Medical Equipment Procedure Code Equipment Code Equipment Origin al Text Equipment Identifier Dates Capsule endoscopy, for patency of lumen evaluation Video capsule endoscopy system [id number] FDA Start: 09-02-2021 Functional Status Date Assessment Result Facility 12-12-2022 Functional Status N/A [facility] [place] History of Present illness Narrative 10-19-2023 Dov Maza MD - 10/19/2023 9:00 AM EST Note Date & Type Note Facility 10-19-2023 History of Present illness Narrative Patient is new to this provider. Previously seen by Dr. Lorenzana and then by Edie Pryor NP. Subjective : Interval review of systems is negative for chest discomfort pressure tightness heaviness palpitations lightheadedness orthopnea paroxysmal nocturnal dyspnea dependent edema or claudication TIA or CVA type symptoms or bleeding diathesis Very active independent gentleman. Says his blood pressure is always high in the doctor's office and much lower at home. History so Far : Last evaluated in clinic Dr. Lorenzana October 2021. He has followed routinely with Dr. Lorenzana since 2008 hospitalization for atypical chest pain and at that time cardiac cath angiographically normal coronaries with normal LVEF. He has managed primarily for primary prevention. No prior history of myocardial infarction, cardiomyopathy or dysrhythmias. Annual labs completed October 2022 including Chem-6 lipid profile AST, ALT. Unremarkable. Per prior notes by Edie Pryor which I have reviewed and incorporated: He has extremely pleasant 77-year-old gentleman who resides home alone. He attends to his own ADLs and functional ADLs. 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 He has no stairs at home. He is able to go to the grocery store, mow the lawn with a push mower without any type of exertional symptoms. He ambulated in from the parking lot without concerns. He denies any change in exercise capacity or functional tolerance since last office follow-up. His functional capacity remains unchanged Objective Wt Readings from Last 3 Encounters: 10/19/23 78.9 kg (174 lb) 10/19/22 81.6 kg (180 lb) 10/08/21 84.8 kg (187 lb) Physical Exam: GENERAL APPEARANCE: in no acute distress. CHEST: Symmetric and non-tender. INTEGUMENT: Skin warm and dry HEENT: No gross abnormalities identified.No pallor or scleral icterus. NECK: Supple, no JVD, no bruit. NEURO/PSHCY: Alert and oriented x3; appropriate behavior and responses and responses LUNGS: Clear to auscultation bilaterally; normal respiratory effort. HEART: Rate and rhythm regular with no evident murmur; no gallop appreciated. ABDOMEN: Soft, non tender. MUSCULOSKELETAL: No gross deformities. EXTREMITIES: Warm There is no edema noted. Meds: Current Outpatient Medications Medication Instructions aspirin 81 mg EC tablet 1 tablet, oral, Daily atorvastatin (Lipitor) 40 mg tablet 1 tablet, oral, Daily L. acidophilus/Bifid. 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 Healthy functional 78-year-old 2. [place] hypertension 3.Lipid profile from 2021 was excellent Recommendations: 1. Patient can continue regular follow-up with primary care and see us on an as-needed basis. 2. I told him that if he were to develop any symptoms of chest discomfort pressure tightness heaviness or shortness of breath he should seek prompt medical attention. Thank you for allowing us to participate in patient's care, please do not hesitate to call if further questions arise, sincerely, Dov Maza MD [facility] Follow up : prn Provider Attestation - Scribe documentation All medical record entries made by the Scribe were at my direction and personally dictated by me. I have reviewed the chart and agree that the record accurately reflects my personal performance of the history, physical exam, discussion and plan. Dov Maza MD Scribe Attestation By signing my name below, IShena Eduardo SCOTT , Scribe attest that this documentation has been prepared under the direction and in the presence of Dov Maza MD. documented in this encounter [facility] Work Phone: Instructions 10-19-2023 Patient Instructions Note Date & Type Note Facility 10-19-2023 Instructions Shena Hermosillo LPN - 10/19/2023 9:00 AM EST Please bring all medicines, vitamins, and herbal supplements with you when you come to the office. Prescriptions will not be filled unless you are compliant with your follow up appointments or have a follow up appointment scheduled as per instruction of your physician. Refills should be requested at the time of your visit. Follow up as needed. documented in this encounter [facility] Work Phone: Hospital Discharge instructions 12-12-2022 Note Date & Type Note Facility 12-12-2022 Hospital Discharg e instructions Patient Education 12/12/2022 08:36:02 Kidney Stones, Yeyb-al-Nayd Kidney Stones Kidney stones are rock-like masses that form inside of the kidneys. Kidneys are organs that make pee (urine). A kidney stone may move into other parts of the urinary tract, including: The tubes that connect the kidneys to the bladder (ureters). The bladder. The tube that carries urine out of the body (urethra). Kidney stones can cause very bad pain and can block the flow of pee. The stone usually leaves your body (passes) through your pee. You may need to have a doctor take out the stone. What are the causes? Kidney stones may be caused by: A condition in which certain glands make too much parathyroid hormone (primary hyperparathyroidism). A buildup of a type of crystals in the bladder made of a chemical called uric acid. The body makes uric acid when you eat certain foods. Narrowing (stricture) of one or both of the ureters. A kidney blockage that you were born with. Past surgery on the kidney or the ureters, such as gastric bypass surgery. What increases the risk? You are more likely to develop this condition if: You have had a kidney stone in the past. You have a family history of kidney stones. You do not drink enough water. You eat a diet that is high in protein, salt (sodium), or sugar. You are overweight or very overweight (obese). What are the signs or symptoms? Symptoms of a kidney stone may include: Pain in the side of the belly, right below the ribs (flank pain). Pain usually spreads (radiates) to the groin. Needing to pee often or right away (urgently). Pain when going pee (urinating). Blood in your pee (hematuria). Feeling like you may vomit (nauseous). Vomiting. Fever and chills. How is this treated? Treatment depends on the size, location, and makeup of the kidney stones. The stones will often pass out of the body through peeing. You may need to: Drink more fluid to help pass the stone. In some cases, you may be given fluids through an IV tube put into one of your veins at the hospital. Take medicine for pain. Make changes in your diet to help keep kidney stones from coming back. Sometimes, medical procedures are needed to remove a kidney stone. This may involve: A procedure to break up kidney stones using a beam of light (laser) or shock waves. Surgery to remove the kidney stones. Follow these instructions at home: Medicines Take tcrd-eot-xnwmdct and prescription medicines only as told by your doctor. Ask your doctor if the medicine prescribed to you requires you to avoid driving or using heavy machinery. Eating and drinking Drink enough fluid to keep your pee pale yellow. You may be told to drink at least 8 10 glasses of water each day. This will help you pass the stone. If told by your doctor, change your diet. This may include: ?Limiting how much salt you eat. ?Eating more fruits and vegetables. ?Limiting how much meat, poultry, fish, and eggs you eat. Follow instructions from your doctor about eating or drinking restrictions. General instructions Collect pee samples as told by your doctor. You may need to collect a pee sample: ?24 hours after a stone comes out. ?8 12 weeks after a stone comes out, and every 6 12 months after that. Strain your pee every time you pee (urinate), for as long as told. Use the strainer that your doctor recommends. Do not throw out the stone. Keep it so that it can be tested by your doctor. Keep all follow-up visits as told by your doctor. This is important. You may need follow-up tests. How is this prevented? To prevent another kidney stone: Drink enough fluid to keep your pee pale yellow. This is the best way to prevent kidney stones. Eat healthy foods. Avoid certain foods as told by your doctor. You may be told to eat less protein. Stay at a healthy weight. Where to find more information National Kidney Foundation (NKF): www.kidney.org Urology Care Foundation (UCF): www.urologyhealth.org Contact a doctor if: You have pain that gets worse or does not get better with medicine. Get help right away if: You have a fever or chills. You get very bad pain. You get new pain in your belly (abdomen). You pass out (faint). You cannot pee. Summary Kidney stones are rock-like masses that form inside of the kidneys. Kidney stones can cause very bad pain and can block the flow of pee. The stones will often pass out of the body through peeing. Drink enough fluid to keep your pee pale yellow. This information is not intended to replace advice given to you by your health care provider. Make sure you discuss any questions you have with your health care provider. Document Released: 04/10/2009 Document Revised: 03/10/2020 Document Reviewed: 03/10/2020 dooub Patient Education 2019 [employer]. Follow Up Care 09/20/2021 09:24:32 With:Cj LICONA MD, URL Address: [facility] [address] [place] [address]- [phone] When:12/12/2023 Comments:KUB [facility] Evaluation + Plan note Note Date & Type Note Facility Evaluation + Plan note Future Appointments Appointment Date:12/18/2023 09:45:00 AM Scheduled Provider:Cj LICONA MD Location:[facility] Appointment Type:URO Office Visit [facility] Evaluation note Note Date & Type Note Facility Evaluation note No assessment information availa [facility] Work Phone: Evaluation note Note Date & Type Note Facility Evaluation note Diagnosis Atherosclerosis of anvik coronary artery of anvik heart without angina pectoris Mixed hyperlipidemia Benign prostatic hyperplasia, unspecified whether lower urinary tract symptoms present Essential hypertension Unspecified essential hypertension documented in this encounter [facility] Work Phone: History of Present illness Narrative Note Date & Type Note Facility History of Present illness Narrative The patient states he has been generally doing well since the last visit. Comorbid Illnesses: hyperlipidemia.Symptoms: denies chest pain at rest, denies exertional chest pain, denies dyspnea, denies fatigue, stable exercise intolerance, denies palpitations, denies edema, denies orthopnea, denies claudication, denies dizziness and denies orthostatic dizziness.Associated symptoms: no syncope.His symptoms do not limit his activities.Disease Monitoring: The patient has had a stable weight.Medications: the patient is adherent with his medication regimen. He denies medication side effects. [facility] 250 DO Work Phone: Hospital course Narrative Note Date & Type Note Facility Hospital course Narrative No data available for this section [facility] Hospital Discharge instructions Note Date & Type Note Facility Hospital Discharge instructions Additional Instructions Be sure to follow-up with your doctor. If there are any problems or concerns, we are more than happy to see you at any time. The pain medicine can be constipating, so I have prescribed a gentle laxative in case it is needed. I would recommend not taking high doses of ibuprofen because the steroids I am prescribing can also affect your stomach. The combination can cause problems such as ulcers or bleeding. [facility] Work Phone: Progress note Note Date & Type Note Facility Progress note No data available for this section [facility] Family History Unknown Family Member Name Dates Details Family history of diabetes m ellitus: Sister(V18.0, Z83.3) Status:Active Family history of congestive heart failure: Mother(V17.49, Z82.49) Status:Active Family history of acute myoc ardial infarction: Father(V17.3, Z82.49) Status:Active Unknown Family Member Name Dates Details Family history of acute myoc ardial infarction: Father(V17.3, Z82.49) Status:Active Family history of congestive heart failure: Mother(V17.49, Z82.49) Status:Active Family history of diabetes m ellitus: Sister(V18.0, Z83.3) Status:Active Unknown Family Member Name Dates Details Family history of acute myoc ardial infarction: Father(V17.3, Z82.49) Status:Active Family history of congestive heart failure: Mother(V17.49, Z82.49) Status:Active Family history of diabetes m ellitus: Sister(V18.0, Z83.3) Status:Active Relationship Condition Age at Onset Recorded Date/T kristie father Myocardial infarction Unknown brother Malignant neoplasm of liver Unknown Malignant neoplasm of kidney Unknown Summary Purpose Advance Directives Advance Directive Response Recorded Date/ Time Advance Directives No July 11:11am Chief Complaint * Annual f/u: 'I am doing fine' * FARRUKH BABB is being seen for an annual follow-up of primary prevention. * Patient presents to the office today ambulatory with steady gait. * Last evaluated in clinic Dr. Lorenzana October 2021. He has followed routinely with Dr. Lorenzana since 2008 hospitalization for atypical chest pain and at that time cardiac cath angiographically normal coronaries with normal LVEF. He has managed primarily for primary prevention. * No prior history of myocardial infarction, cardiomyopathy or dysrhythmias. * Annual labs completed October 2022 including Chem-6 lipid profile AST, ALT. Unremarkable. * He denies any hospitalizations or significant changes to interval medical history since last officefollow-up. He does not follow routinely with primary care physician. He has been seen by urology due to asymptomatic nephrolithiasis and reports GI work-up over the summer. * He has extremely pleasant 77-year-old gentleman who resides home alone. He attends to his own ADLs and functional ADLs. 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 He has no stairs at home. He is able to go to the grocery store, mow the lawn with a push mower without any type of exertional symptoms. He ambulated in from the parking lot without concerns. He denies any change in exercise capacity or functional tolerance since last office follow-up. * Primary prevention has been remaining viewed and remains optimal. * Discussed the dynamic nature of coronary artery disease and the importance of seeking medical attention if new symptoms arise. Chief Complaint and Reason for Visit Chief Complaint R groin pain Chief Complaint R groin pain R29.818 M51.36 M54.42 Additional Source Comments (unrecognized sect ion and content) No Status Records FoundNo Status Records FoundNo Status Records FoundNo Status Records FoundNo Status Records FoundNo Status Records FoundNo Status Records FoundNo Status Records Found INFORMATION SOURCE (unrecogn ized section and content) DATE CREATED AUTHOR 03/06/2022 [facility] dical Specialist DATE CREATED AUTHOR AUTHOR'S ORGANIZ ATION 10/15/2022 [facility] [place] [facility] DATE CREATED AUTHOR AUTHOR'S ORGANIZ ATION 10/26/2022 [facility] DATE CREATED AUTHOR AUTHOR'S ORGANIZ ATION 10/26/2022 [employer] DATE CREATED AUTHOR AUTHOR'S ORGANIZ ATION 12/13/2022 [facility] DATE CREATED AUTHOR AUTHOR'S ORGANIZ ATION 10/19/2023 [facility] dical Specialists EPIC DATE CREATED AUTHOR AUTHOR'S ORGANIZ ATION 10/21/2023 [facility] DATE CREATED AUTHOR AUTHOR'S ORGANIZ ATION 11/11/2023 [facility] Patient Care team informatio n (unrecognized section and content) Team Status: Active Member Role Status Dates Grady Romeo MD Primary Care Provider Active Team Status: Inactive Member Role Status Dates Grady Romeo MD Primary Care Provider Active Ender Aguilar Jr, MD Emergency Provider Active Radar Scientist Relationship Specialty Start Date End Date Grady Romeo MD [address] [place] [address] PCP - General 11/06/99 Team Status: Inactive Member Role Status Dates Grady Romeo MD Primary Care Provider, Attending Provider Active Goals (unrecognized section and content) Goals may be documented in a n alternate section Reason for Visit (unrecogniz ed section and content) Reason Comments Annual Exam FOR RECORDS PERTAINING TO PATIENTS WHO ARE OR HAVE BEEN ENROLLED IN A CHEMICAL DEPENDENCY/SUBSTANCEABUSE PROGRAM, SOME INFORMATION MAY BE OMITTED. This clinical summary was aggregated from multiple sources. Caution should be exercised in using it in the provision of clinical care. This summary normalizes information from multiple sources, and as a consequence, information in this document may materially change the coding, format and clinical context of patient data. In addition, data may be omitted in some cases. CLINICAL DECISIONS SHOULD BE BASED ON THE PRIMARY CLINICAL RECORDS. [facility]. provides no warranty or guarantee of the accuracy or completeness of information in this document.
--- OUTSIDE RECORDS SUMMARY | 2023-12-08 07:24 | XMS_ITS | CCD ---
Author Name Unknown Address [address] [place] [address] Organization [facility] Care Team Providers Care Treasury Consultant Name Role Phone Grady Romeo Unavailable Unavailable [...] Unavailable MD Grady Romeo Primary Care Provider [phone] MD Ender Agiular Jr Emergency Provider GRADY ROMEO Attending Unavailable GRADY ROMEO Attending Unavailable Grady Romeo MD Primary Care Provider DOV MAZA Attending Unavailable GRADY ROMEO Primary Care Unavailab Ender Cintron Jr Admitting Unavailable Grady Romeo Primary Care Unavailable Ender Aguilar Jr Attending Grady Hernandez Attending Unavailable Grady Romeo Primary Care Unavailable Grady Romeo Admitting Unavailable MD Grady Romeo Attending Provider [phone] Allergies Allergy Classification Reported Allergen(s) Allergy Type Date of Onset Reaction(s) Facility (7 sources) Clarithromycin; Translations: [clarithromycin] Drug Allergy 3 Unknown [facility] (1 source) Clarithromycin Drug Allergy [facility] (1 source) Finasteride Drug Allergy [facility] (1 source) Naproxen Drug Allergy [facility] (1 source) Erythromycin Drug Allergy 3 [facility] Medications Current Medications Medication Drug Class(es) [...] tablet 3 10/19/2023 10/18/2024 Active bifidobacterium animalis [id number] unt / lactobacillus acidophilus [id number] unt oral capsule (4 sources) L. acidophilus/Bifid. animalis 32 billion cell capsule Take by mouth. 0 Active Probiotic CAPS 1 00 mg daily Quantity: 0 Refills: 0 Ordered: 08-Oct-2021 DO Active docusate sodium 50 mg / sennosides, correction 8.6 mg oral tablet (2 sources) Start: [...] 112 56 July 28, 2021 11:00pm One-A-Day [employer] Formu la (1 source) Start: 08-07-2020 One-A-Day [employer] Formula Oral, Daily, Refill(s) 0 Start Date: [...] AP/LAT/FLX/E XTon 11-10-2023 XR lumbar spine AP/LAT/FLX/EXT [facility] Main [address] [address] XRay Report Signed Patient: Farrukh Babb MR#: [id number] : 1945 Acct:[id number] Age/Sex: 78 / M ADM Date: 11/10/23 Loc: XD Room: Type: [facility] Attending Dr: Grady Romeo MD Copies [...] Bg Gurrola M.D.11/10/2023 9:29 PM Dictation Location: [place] [address] Transcribed By: [facility] 11/10/232128 Dictated By: Bg Gurrola DO 11/10/232126 Signed By: 11/10/232128 Normal [facility] XR hip RT min 2V(w/wo pelvis )*on 09-11-2023 XR hip RT min 2V(w/wo pelvis)* [facility] Main [address] [address] XRay Report Signed Patient: Farrukh Babb MR#: [id number] : 1945 Acct:[id number] Age/Sex: 78 / M ADM Date: 09/11/23 Loc: ER Room: Type: [facility] ER Attending Dr: Copies to: Ender Aguilar [...] Micheal Jett M.D.09/11/2023 11:03 AM Dictation Location: [place] [address] Transcribed By: [facility] 09/11/23 1103 Dictated By: Micheal Jett II, MD 09/11/23 1101 Signed By: 09/11/23 1103 Normal [facility] XR lumbar spine 2-3V*on XR lumbar spine 2-3V* [facility] [place] [address] XRay Report Signed Patient: Farrukh Babb MR#: [id number] : 1945 Acct:[id number] Age/Sex: 78 / M ADM Date: 09/11/23 Loc: ER Room: Type: [facility] ER Attending Dr: Copies to: Ender Aguilar [...] Micheal Jett M.D.09/11/2023 11:04 AM Dictation Location: [place] [address] Transcribed By: [facility] 09/11/231103 Dictated By: Micheal Jett II, MD 09/11/231102 Signed By: 09/11/231103 [facility] Ambulatory Visit Summaryon 0 12-12-2022 Ambulatory Visit Summary FARRUKH BABB :1945 Visit Date:12/12/2022 Ambulatory Visit Instructions Your Diagnosis BPH with obstruction/lower urinary tract symptoms Nocturia Kidney stones Tests Performed Urnls Dip Stick Auto w/o Microscopy POC 31389 XR Abdomen 1 View -- Results Pending [...] Cj LICONA MD Where: [facility] Derek Normal [facility] Patient Educationon 12-12-19 23 Patient Education [...] these instructions at home: Medicines ? Take nojy-sda-dlpnjcw and prescription medicines only as told by [...] 04/10/2009 Document Revised: 03/10/2020 Document Reviewed: 03/10/2020 [employer]Yourself Patient Education ? 2019 [employer]. [facility] Urology Office/Clinic Noteon 12-12-2022 Urology Office/Clinic Note [...] [facility] [address], [place] [id number] Additional Instructions: KUB Patient Education Kidney Stones, Kjpm-[id number] Jeaneth Chicas, personally scribed for Dr. Licona [...] Protein Urine Dipstick: Negative (12/12/22 12:41:00) Specific [place] Urine (more content not included)... Normal [facility] Comment on above: Result Comment: Elec [...] (272.4) (E78.5) High intensity statin Managed by [facility] October 2022 HDL 53, LDL 41 Overweight with body mass index (BMI) of 25 to 25.9 in adult (278.02,V85.21) (E66.3,Z68.25) Reviewed the merits of healthy lifestyle choices on overall cardiovascular health. Orders Hyperlipidemia Renew: Atorvastatin Calcium 40 MG Oral Tablet; TAKE 1 TABLET DAILY Hyperlipidemia, Normal cardiac ejection fraction, Normal coronary angiogram ALT - Alanine Aminotransferase, Serum; Status:Active; Requested for:[id number]; AST; Status:Active; Requested for:[id number]; Basic Metabolic Panel; Status:Active; Requested for:61Nqx4334; Lipid Panel; Status:Active; Requested for:[id number]; Overweight with body mass index (BMI) of 25 to 25.9 in adult Healthy Weight Tips; Status:Complete; Done: [id number] Patient Instructions Please bring all medicines, vitamins, [...] ADLs. 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 He has no stairs at [...] Delayed ReleaseTAKE 1 CAPSULE TWICE DAILY. Probiotic [id number] mg daily Allergies Medication clarithromycin Allergy; Recorded [...] Tobacco Screening.on Adult depression screening assessment [facility] Work Phone: Fall risk assessment a) No falls within the last year [facility] DO Work Phone: Tobacco use status CPHS b) No [facility] DO Work Phone: LIPID PROFILEon 10-10-2022 CHOL-HDL RATIO NORM SEE BELOW Normal [facility] Comment on above: Result Comment: 3.3 - 4.4 LOW RISK 4.4 - 7.1 AVERAGE RISK 7.1 - 11.0 MODERATE RISK >11.0 HIGH RISK Performed By: #### B MP, LIPID, AST, ALT #### [facility] [address] [address] [address] Marisa Curtis Cholesterol [Mass/Vol] 111 mg/dL Normal <=200 [facility] Comment on above: Performed By: #### B MP, LIPID, AST, ALT #### [facility] [address] [place] [address] [address] Marisa Curtis Cholesterol in HDL [Mass/Vol] 53 mg/dL Normal 40-60 [facility] Comment on above: Performed By: #### B MP, LIPID, AST, ALT #### [facility] [address] [place] [address] [address] Marisa Curtis Cholesterol in LDL [Mass/Vol] 41.6 mg/dL Normal [facility] Comment on above: Performed By: #### B MP, LIPID, AST, ALT #### [facility] [address] [place] [address] [address] Marisa Curtis Cholesterol.total/ Cholesterol in HDL [Mass ratio] 2.1 {ratio} Normal [facility] Comment on above: Performed By: #### B MP, LIPID, AST, ALT #### [facility] [address] [address] [address] Marisa Curtis HDL NORMAL > or = 60 mg/dl - LO W CARDIOVASCULAR RISK <40 mg/dl - HIGH CARDIOVASCULAR RISK Normal [facility] Comment on above: Performed By: #### B MP, LIPID, AST, ALT #### [facility] [address] [address] [address] Marisa Curtis LDL CALC NORMAL SEE BELOW Normal [facility] Comment on above: Result Comment: <100 mg/dl OPTIMAL 100 - 129 mg/dl NEAR OR ABOVE OPTIMAL 130 - 159 mg/dl BORDERLINE HIGH 160 - 189 mg/dl HIGH >190 mg/dl VERY HIGH Performed By: #### B MP, LIPID, AST, ALT #### [facility] [address] [place] [address] [address] Marisa Curtis Triglyceride [Mass/Vol] 82 mg/dL Normal <=150 [facility] Comment on above: Performed By: #### B MP, LIPID, AST, ALT #### [facility] [address] [place] [address] [address] Marisa Curtis VLDL CALC 16.4 mg/dL Normal [facility] Comment on above: Performed By: #### B MP, LIPID, AST, ALT #### [facility] [address] [place] [address] [address] Marisa Curtis PROF CHEM 8 (BAS METB)on Anion gap [Moles/Vol] 10.1 mmol/L Normal [facility] Comment on above: Performed By: #### B MP, LIPID, AST, ALT #### [facility] [address] [place] [address] [address] Marisa Curtis Calcium [Mass/Vol] 9.1 mg/dL Normal 8.5-10.1 [facility] Comment on above: Performed By: #### B MP, LIPID, AST, ALT #### [facility] [address] [place] [address] [address] Marisa Curtis Chloride [Moles/Vol] 104 mmol/L Normal 98-107 [facility] Comment on above: Performed By: #### B MP, LIPID, AST, ALT #### [facility] [address] [place] [address] [address] Marisa Curtis CO2 [Moles/Vol] 30.9 mmol/L Normal 21.0-32.0 [facility] Comment on above: Performed By: #### B MP, LIPID, AST, ALT #### [facility] [address] [address] [address] Marisa Curtis Creatinine [Mass/Vol] 0.92 mg/dL Normal 0.70-1.30 [facility] Comment on above: Performed By: #### B MP, LIPID, AST, ALT #### [facility] [address] [place] [address] Dr. Marisa Curtis EGFR-AF HAITIAN >60 Normal >=60 [facility] Comment on above: Performed By: #### B MP, LIPID, AST, ALT #### [facility] [address] [place] [address] Dr. Marisa Curtis EGFR-NON AF HAITIAN >60 Normal >=60 [facility] Comment on above: Performed By: #### B MP, LIPID, AST, ALT #### [facility] [address] [place] [address] Dr. Marisa Curtis Glucose [Mass/Vol] 100 mg/dL Normal 74-106 [facility] Comment on above: Performed By: #### B MP, LIPID, AST, ALT #### [facility] [address] [address] [address] Marisa Curtis Potassium [Moles/Vol] 4.0 mmol/L Normal 3.5-5.1 [facility] Comment on above: Performed By: #### B MP, LIPID, AST, ALT #### [facility] [address] [place] [address] Dr. Marisa Curtis Sodium [Moles/Vol] 141 mmol/L Normal 136-145 [facility] Comment on above: Performed By: #### B MP, LIPID, AST, ALT #### [facility] [address] [place] [address] [address] Marisa Curtis Urea nitrogen [Mass/Vol] 19.0 mg/dL Critically high 7.0-18.0 [facility] Comment on above: Performed By: #### B MP, LIPID, AST, ALT #### [facility] [address] [place], [place] [address] Dr. Marisa Curtis Urea nitrogen/Creatinin e [Mass ratio] 20.7 mg/mg Normal [facility] Comment on above: Performed By: #### B MP, LIPID, AST, ALT #### [facility] [address] [place] [address] [address] Marisa Bailey 10-10-2022 AST [Catalytic activity/Vol] 23 U/L Normal 15-37 [facility] Comment on above: Performed By: #### B MP, LIPID, AST, ALT #### [facility] [address] [place] [address] Dr[facility] 10-10-2022 ALT [Catalytic activity/Vol] 28 U/L Normal 16-63 [facility] Comment on above: Performed By: #### B MP, LIPID, AST, ALT #### [facility] [address] [place] [address] Dr. Marisa Curtis [facility] RAD - MIS [id number]:[id number] Normal [facility] XR KUB 1 VIEWon 09-12-2022 XR [...] by: KIM FRANK Date: 2022-09-12 17:32 Normal [facility] Basic Metabolic Panelon 04-2 8-2022 Anion gap [Moles/Vol] 15 mmol/L Normal 12-20 [facility] Comment on above: Result Comment: Effe ctive 11/11/2019 reference range changed. Performed By: #### RONALD Barahona MP #### [facility] [address] [place], [place] [id number] Calcium [Mass/Vol] 9.5 mg/dL Normal 8.6-10.2 [facility] Comment on above: Performed By: #### RONALD Barahona MP #### [facility] [address] [place], [place] [id number] Chloride [Moles/Vol] 105 mmol/L Normal 98-107 [facility] Comment on above: Performed By: #### RONALD Barahona MP #### [facility] [address] [place], [place] [id number] CO2 [Moles/Vol] 24 mmol/L Normal 20-31 [facility] Comment on above: Performed By: #### RONALD Barahona MP #### [facility] [address] [place], [place] [id number] Creatinine [Mass/Vol] 0.8 mg/dL Normal 0.7-1.4 [facility] Comment on above: Performed By: #### RONALD Barahona MP #### [facility] [address] [place], [place] [id number] eGFRAA 119 mL/min/1.73m2 Normal >60 [facility] Specialist Comment on above: Performed By: #### RONALD Barahona MP #### [facility] [address] [place], [place] [id number] eGFRNAA 98 mL/min/1.73m2 Normal >60 [facility] Comment on above: Performed By: #### RONALD Barahona MP #### [facility] [address] [place], [place] [id number] Glucose [Mass/Vol] 100 mg/dL High 65-99 [facility] [place] [facility] Comment on above: Result Comment: For FASTING Glucose --- ADA reference ranges: Normal 65-99 mg/dl Prediabetes 100-125 Diabetes >/= 126 Performed By: #### RONALD Barahona MP #### [facility] [address] [place], [place] [id number] Potassium [Moles/Vol] 4.2 mmol/L Normal 3.5-5.5 [facility] Comment on above: Performed By: #### B RAYMUNDO LIPRashida #### [facility] [address] [place], [place] [id number] Sodium [Moles/Vol] 140 mmol/L Normal 135-146 [facility] Comment on above: Performed By: #### B RAYMUNDO LIPD #### [facility] [address] [place], [place] [id number] Urea nitrogen [Mass/Vol] 17 mg/dL Normal 7-25 [facility] Comment on above: Performed By: #### B RAYMUNDO LIPRashida #### [facility] [address] [place], [place] [id number] Lipid Panelon 03-03-2022 Cholesterol [Mass/Vol] 118 mg/dL Low 125-200 [facility] Comment on above: Result Comment: Low risk < 200mg/dL Borderline risk 201-239 mg/dl High risk > or equal to 240 Performed By: #### B RAYMUNDO LIPD #### [facility] [address] [place], [place] [id number] Cholesterol in HDL [Mass/Vol] 45 mg/dL Normal >40 [facility] Comment on above: Result Comment: High Cardiovascular Risk HDL <40 mg/dL Low Cardiovascular Risk HDL > or equal to 60 mg/dl Performed By: #### B RAYMUNDO LIPD #### [facility] [address] [place], [place] [id number] Cholesterol in LDL [Mass/Vol] 52 mg/dL Normal [facility] Comment on above: Result Comment: LDL ATP III CLASSIFICATION LDL less than 100 mg/dl Optimal LDL 100-129 mg/dl Near or above optimal LDL 130-159 Borderline high LDL 160-189 High LDL greater than 189 mg/dl Very High Performed By: #### B RAYMUNDO LIPD #### [facility] [address] [place], [place] [id number] Cholesterol in VLDL [Mass/Vol] 21 mg/dL Normal [facility] Comment on above: Performed By: #### B RAYMUNDO LIPD #### [facility] [address] [place], [place] [id number] Cholesterol.total/ Cholesterol in HDL [Mass ratio] 3 {ratio} Normal [facility] Comment on above: Performed By: #### B RAYMUNDO, LIPD #### [facility] [address] [place], [place] [id number] Triglyceride [Mass/Vol] 106 mg/dL Normal 30-150 [facility] Comment on above: Result Comment: TRIG ATPIII CLASSIFICATIONS TRIG less than 150 mg/dl Normal TRIG 150-199 mg/dl Borderline High TRIG 200-500 mg/dl High TRIG greather than 500 mg/dl Very High Performed By: #### B RAYMUNDO, LIPD #### [facility] [address] [place], [place] [id number] US Carotid, Bilateralon 02-05 US Carotid, Bilateral [...] by Manoj Nogueira on 03/03/2022 0958 Normal [facility] Special[facility] Tobacco Screening.on 021 Fall risk assessment a) No falls within the last year -[facility] 600 DO Work Phone: Tobacco use status CP b) No -[facility] 600 DO Work Phone: Vital Signs Date Time Vital Sign Value Performing Clinician Facility 10-19-2023 08:54-0500 Diastolic blood pressure 86 mm[Hg] Dov Maza MD Work Phone: [facility] 10-19-2023 08:54-0500 Systolic blood pressure 142 mm[Hg] Dov Maza MD Work Phone: [facility] 10-19-2023 08:41-0500 Body height 180.3 cm Dov Maza MD Work Phone: [facility] 10-19-2023 08:41-0500 Body mass index (BMI) [Ratio] 24.27 kg/m2 Dov Maza MD Work Phone: [facility] 10-19-2023 08:41-0500 Body weight 78.93 kg Dov Maza MD Work Phone: [facility] 10-19-2023 08:41-0500 Heart rate 86 /min Dov Maza MD Work Phone: [facility] 09-11-2023 02:57-0500 Diastolic blood pressure 90 mm[Hg] MD Grady Romeo Work Phone: [facility] 09-11-2023 02:57-0500 Heart rate 84 /min MD Grady Romeo Work Phone: [facility] 09-11-2023 02:57-0500 Respiratory rate 16 /min MD Grady Romeo Work Phone: [facility] 09-11-2023 02:57-0500 SaO2% (BldA) [Mass fraction] 97 % MD Grady Romeo Work Phone: [facility] 09-11-2023 02:57-0500 Systolic blood pressure 162 mm[Hg] MD Grady Romeo Work Phone: [facility] 09-11-2023 02:39-0500 Body temperature 98.1 [degF] MD Grady Romeo Work Phone: [facility] 09-11-2023 02:37-0500 Body height 180.34 cm MD Grady Romeo Work Phone: [facility] 09-11-2023 02:37-0500 Body weight 79.37 kg MD Grady Romeo Work Phone: [facility] 12-12-2022 12:40-0500 Blood Pressure Location Cj LICONA [facility] 12-12-2022 12:40-0500 Diastolic blood pressure 74 mm[Hg] Cj LICONA [facility] 12-12-2022 12:40-0500 Heart rate 70 /min Cj LICONA [facility] 12-12-2022 12:40-0500 Respiratory rate 16 /min Cj LICONA [facility] 12-12-2022 12:40-0500 Systolic blood pressure 132 mm[Hg] Cj LICONA [facility] 10-19-2022 09:25-0500 Body height 180.34 cm Grady Romeo Work Phone: [facility] 250 DO Work Phone: 10-19-2022 09:25-0500 Body mass index (BMI) [Ratio] 25.11 kg/m2 Grady Romeo Work Phone: [facility] 250 DO Work Phone: 10-19-2022 09:25-0500 Body surface area Derived from formula 2.02 m2 Grady Romeo Work Phone: [facility] 250 DO Work Phone: 10-19-2022 09:25-0500 Body weight 81.65 kg Grady Romeo Work Phone: [facility] 250 DO Work Phone: 10-19-2022 09:25-0500 Diastolic blood pressure 78 mm[Hg] Edadalid Garcia Hemeyer Work Phone: [facility] 250 DO Work Phone: 10-19-2022 09:25-0500 Heart rate 76 /min Edadalid Garciayer Work Phone: [facility] 250 DO Work Phone: 10-19-2022 09:25-0500 Systolic blood pressure 136 mm[Hg] Edward Jose Hemeyer Work Phone: [facility] 250 DO Work Phone: 10-08-2021 08:43-0500 Diastolic blood pressure 80 mm[Hg] Edadalid Garcia Hemeyer Work Phone: [facility] 600 DO Work Phone: 10-08-2021 08:43-0500 Systolic blood pressure 138 mm[Hg] Edadalid Garcia Hemeyer Work Phone: [facility] 600 DO Work Phone: 10-08-2021 08:31-0500 Body height 180.34 cm Baadalid Jose Joseyer Work Phone: [facility] 600 DO Work Phone: 10-08-2021 08:31-0500 Body mass index (BMI) [Ratio] 26.08 kg/m2 Grady Jose Hemeyer Work Phone: [facility] 600 DO Work Phone: 10-08-2021 08:31-0500 Body surface area Derived from formula 2.05 m2 Grady Garcia Hemeyer Work Phone: [facility] 600 DO Work Phone: 10-08-2021 08:31-0500 Body weight 84.82 kg Edward J Hemeyer Work Phone: [facility] 600 DO Work Phone: 10-08-2021 08:31-0500 Diastolic blood pressure 101 mm[Hg] Grady Romeo Work Phone: [facility] 600 DO Work Phone: 10-08-2021 08:31-0500 Heart rate 90 /min Grady Romeo Work Phone: [facility] 600 DO Work Phone: 10-08-2021 08:31-0500 Systolic blood pressure 136 mm[Hg] [facility] 600 DO Work Phone: Encounters Encounter Date Encounter Type Care Provider Facility Start: 12-18-2023 ambulatory MD Cj LICONA Fac ility:[facility] Start: 11-10-2023 End: 11-10-2023 ambulatory Grady Romeo Facility:[facility] Start: 11-10-2023 End: 11-10-2023 ambulatory MD Grady Romeo Work Phone: [facility] Work Phone: Start: 11-10-2023 End: 11-10-2023 Patient encounter procedure MD Grady Romeo Work Phone: [facility] Work Phone: Start: 10-19-2023 End: 10-19-2023 ambulatory [facility] Start: 10-19-2023 End: 10-19-2023 Office outpatient visit 15 minutes Dov Maza MD Work Phone: [facility] Comment on above: Atherosclerosis of n ative coronary artery of [place] heart without angina pectoris; Mixed hyperlipidemia; Benign prostatic hyperplasia, unspecified whether lower urinary tract symptoms present; Essential hypertension Start: 10-17-2023 End: 10-17-2023 ambulatory GRADY ROMEO Not Available Start: 09-19-2023 End: 09-19-2023 ambulatory GRADY ROMEO Not Available Start: 09-11-2023 End: 09-11-2023 Emergency department patient visit Ender Aguilar Jr Facility:[facility] Start: 09-11-2023 End: 09-11-2023 Emergency department patient visit MD Grady Romeo Work Phone: [facility] Work Phone: Start: 12-12-2022 End: 12-13-2022 ambulatory MD Cj LICONA Facility:[facility] Start: 12-12-2022 End: 12-12-2022 Patient encounter procedure Cj LICONA [facility] Start: 10-19-2022 Office outpatient vi sit 15 minutes Grady Romeo Work Phone: [facility] 250 DO Work Phone: Start: 10-19-2022 ambulatory Grady Romeo Facility:[id number] Start: 10-10-2022 End: 10-11-2022 ambulatory EDIE NAGEL Facility:[facility] Start: 09-12-2022 End: 09-13-[address] CJ LICONA Facility:[facility] Start: 09-06-2022 Telephone encounter Grady ornelas Work Phone: [facility] 250 DO Work Phone: Start: 10-21-2021 Rx Renewal Grady Stephenson er Work Phone: [facility] 600 DO Work Phone: Imaging result normal Grady ornelas Work Phone: [facility] 250 DO Work Phone: Procedures Date Procedure Procedure Detail Performing Clinician Start: 11-10-2023 X-ray of lumbar spin e, four views MD Grady Romeo Work Phone: Start: 09-11-2023 Plain X-ray of right hip MD Grady Romeo Work Phone: Start: 09-11-2023 X-ray of lumbar spin e, two or three views MD Grady Romeo Work Phone: Start: 08-20-2021 Endoscopy Cj TAHIR GRCAY Start: 08-06-2021 Colonoscopy Cj TAHIR GRACY Start: [...] Dov Maza, Status: Pen, Time: 9:00 AM [facility] 250 DO Work Phone: Start: 09-11-2023 Plain X-ray of right hip XR hip RT min 2V(w/wo pelvis)* [facility] Start: 09-11-2023 X-ray of lumbar spine, two or three views XR lumbar spine 2-3V* [facility] Start: 09-11-2023 XR Hip - right 2 Views [facility] Start: 09-11-2023 XR Lumbar spine 2 or 3 Views [facility] Start: 10-19-2022 FUV, Provider: Edie Mathis, Status: Pen, Time: 9:30 AM FUV, Provider: Edie Mathis, Status: Pen, Time: 9:30 AM [facility] 250 DO Work Phone: Start: 10-18-2022 FUV, Provider: Rg Lorenzana, Status: Pen, Time: 8:30 AM FUV, Provider: Rg Lorenzana, Status: Pen, Time: 8:30 AM [facility] 600 DO Work Phone: Start: 06-26-2022 COVID-19 Vaccine (4 - Pfizer series) COVID-19 Vaccine (4 - Pfizer series) [facility] Start: 09-02-2016 DTaP/Tdap/Td Vaccine s (1 - Tdap) DTaP/Tdap/Td Vaccines (1 - Tdap) [facility] Start: 1995 Zoster Vaccines (1 o f 2) Zoster Vaccines (1 of 2) [facility] Start: 1963 Diabetes mellitus screening Diabetes Screening [facility] Start: 1963 Hepatitis C screening Hepatitis C Sc reening [facility] Start: 1945 Lipid panel Lipid Panel [facility] Start: 1945 Medicare Annual Wellness Visit Medicare Annual Wellness Visit (AWV) [facility] Patient Education Radiculopathy Opioids for Short-Term Treatment of Pain ED [facility] Work Phone: Patient referral [facility] Work Phone: Immunizations Immunization Date Immunization Notes Care Provider Fa derek 08-22-2022 Fluad Quadrivalent 0 .5 ML Intramuscular Prefilled Syringe Edadalid Romeo Work Phone: [facility] 250 DO Work Phone: 05-01-2022 Comirnaty 30 MCG/0.3 ML Intramuscular Suspension Edadalid Romeo Work Phone: [facility] 250 DO Work Phone: 08-10-2021 Pfizer-BioNTech COVI D-19 Vacc 30 MCG/0.3ML Intramuscular Suspension Edadalid Garcia [employer] Work Phone: [facility] 07-22-2021 Fluzone High-Dose Quadrivalent 0.7 ML Intramuscular Suspension Prefilled Syringe Edadalid Jose [employer] Work Phone: [facility] 600 DO Work Phone: 07-22-2021 influenza, injectabl e, quadrivalent, preservative free Dov Maza MD Work Phone: [facility] Work Phone: 01-01-2021 Pfizer-BioNTech COVI D-19 Vacc 30 MCG/0.3ML Intramuscular Suspension Baadalid Garcia [employer] Work Phone: [facility] 12-11-2020 Pfizer-BioNTech COVI D-19 Vacc 30 MCG/0.3ML Intramuscular Suspension Edadalid Romeo Work Phone: [facility] 08-06-2020 influenza virus vacc ine, unspecified formulation Cj LICONA [facility] 07-20-2020 Fluzone High-Dose Quadrivalent 0.7 ML Intramuscular Suspension Prefilled Syringe Edadalid Jose Garciasharita Work Phone: [facility] 600 DO Work Phone: 07-20-2020 influenza, high dose seasonal, preservative-free Dov Maza MD Work Phone: [facility] Work Phone: 08-05-2019 influenza, high dose seasonal, preservative-free Baadalid Jose Agueda Work Phone: [place] [address] DO Work Phone: 08-05-2019 pneumococcal conjuga te vaccine, 13 valent Dov Maza MD Work Phone: [facility] Work Phone: 08-05-2019 pneumococcal polysaccharide vaccine, 23 valent Grady Garcia [employer] Work Phone: [facility] 09-06-2018 influenza, injectabl e, quadrivalent, preservative free Grady Garcia [employer] Work Phone: [place] [address] DO Work Phone: 08-06-2018 influenza, high dose seasonal, preservative-free Grady Garciayer Work Phone: [place] [address] DO Work Phone: 08-06-2018 pneumococcal conjuga te vaccine, 13 valent Grady Romeo Work Phone: [place] [address] DO Work Phone: 10-26-2017 influenza virus vacc ine, unspecified formulation Dov Maza MD Work Phone: [facility] Work Phone: 10-26-2017 influenza, injectabl e, quadrivalent, preservative free Grady Garcia [employer] Work Phone: [facility] 600 DO Work Phone: 09-01-2016 tetanus and diphther ia toxoids, adsorbed, preservative free, for adult use (5 Lf of tetanus toxoid and 2 Lf of diphtheria toxoid) Grady Garcia [employer] Work Phone: [facility] 600 DO Work Phone: 08-04-2016 influenza virus vacc ine, unspecified formulation Dov Maza MD Work Phone: [facility] Work Phone: 08-04-2016 influenza, high dose seasonal, preservative-free Grady Garcia [facility] Work Phone: [facility] 600 DO Work Phone: 08-04-2016 pneumococcal conjuga te vaccine, 13 valent Dov Maza MD Work Phone: [facility] Work Phone: 08-04-2016 pneumococcal polysaccharide vaccine, 23 valent Grady Garcia [facility] Work Phone: [facility] 07-22-2015 pneumococcal conjuga te vaccine, 13 valent Grady Garcia [facility] Work Phone: [facility] 600 DO Work Phone: Payers Date Payer Category Payer Self-pay [id number] 2021 Medicare AETNA MEDICARE A ETNA CERRATO MEDICARE [id number] 2021-Present [address] [place] [address] [id number] 1959 Medicare [id number] 1945 Unknown [id number] 1945 Unknown [id number] 1945 Unknown [id number] 1945 Unknown [id number] 1945 Unknown [id number] 1945 Unknown [id number] 1945 Unknown [id number] 1945 Unknown [id number] Medicare Medicare [id number] Unknown [employer] Unknown [id number] Unknown [id number] Social History Date Type Detail Facility Start: 10-19-2023 Never a smoker Never a smoker [facility] 600 DO Work Phone: Comment on above: 1 cup of coffee; Start: 09-20-2021 End: 09-11-2023 Tobacco smoking status Never smoked tobacco (finding) [facility] Start: 10-19-2023 Sex Assigned At Male [facility] Start: 1945 Sex Assigned At Male F [facility] Start: 10-18-2023 Tobacco use and exposure Smokeless tobacco non-user [facility] Work Phone: Start: 10-19-2023 Alcohol intake Current drinke r of alcohol (finding) [facility] Work Phone: Start: 1945 Sex Assigned At Not on file [facility] Work Phone: Start: 10-09-2023 End: 10-19-2023 Exposure to SARS-CoV-2 (event) Not sure [facility] Medical Equipment Procedure Code Equipment Code Equipment Origin al Text Equipment Identifier Dates Capsule endoscopy, for patency of lumen evaluation Video capsule endoscopy system [id number] FDA Start: 09-02-2021 Functional Status Date Assessment Result Facility 12-12-2022 Functional Status N/A [facility] [place] History of Present illness Narrative 10-19-2023 Dov [...] ADLs. 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 He [...] Problem List Diagnosis Date Noted Atherosclerosis of [place] coronary artery without angina pectoris 10/18/2023 BPH (benign prostatic hyperplasia) 10/18/2023 History of SD (myocardial infarction) 10/18/2023 Hyperlipidemia 10/18/2023 Assessment: 1. [...] further questions arise, sincerely, Dov Maza MD [facility] Follow up : prn Provider Attestation - [...] Dov Maza MD. documented in this encounter [facility] Work Phone: Instructions 10-19-2023 Patient Instructions Note [...] up as needed. documented in this encounter [facility] Work Phone: Hospital Discharge instructions 12-12-2022 Note Date & Type Note Facility 12-12-2022 Hospital Discharg e instructions Patient Education 12/12/2022 08:36:02 Kidney Stones, Ikrz-od-Mohl Kidney Stones Kidney stones are rock-like masses [...] Follow these instructions at home: Medicines Take ipmd-pfg-yiwzgif and prescription medicines only as told by [...] 04/10/2009 Document Revised: 03/10/2020 Document Reviewed: 03/10/2020 [employer] Patient Education 2019 [employer]. Follow Up Care 09/20/2021 09:24:32 With:Cj LICONA MD, URL Address: [facility] [address] [place] [address]- [phone] When:12/12/2023 Comments:KUB [facility] Evaluation + Plan note Note Date & Type Note Facility Evaluation + Plan note Future Appointments Appointment Date:12/18/2023 09:45:00 AM Scheduled Provider:Cj LICONA MD Location:[facility] Appointment Type:URO Office Visit [facility] Evaluation note Note Date & Type Note Facility Evaluation note No assessment information availa [facility] Work Phone: Evaluation note Note Date & Type Note Facility Evaluation note Diagnosis Atherosclerosis of [place] coronary artery of [place] heart without angina pectoris Mixed hyperlipidemia Benign prostatic hyperplasia, unspecified whether lower urinary tract symptoms present Essential hypertension Unspecified essential hypertension documented in this encounter [facility] Work Phone: History of Present illness Narrative [...] medication regimen. He denies medication side effects. [facility] 250 DO Work Phone: Hospital course Narrative Note Date & Type Note Facility Hospital course Narrative No data available for this section [facility] Hospital Discharge instructions Note Date & Type [...] cause problems such as ulcers or bleeding. [facility] Work Phone: Progress note Note Date & Type Note Facility Progress note No data available for this section [facility] Family History Unknown Family Member Name Dates [...] ADLs. 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 He has no stairs at [...] section and content) DATE CREATED AUTHOR 03/06/2022 [facility] dical Specialist DATE CREATED AUTHOR AUTHOR'S ORGANIZ ATION 10/15/2022 [facility] [facility] DATE CREATED AUTHOR AUTHOR'S ORGANIZ ATION 10/26/2022 [facility] DATE CREATED AUTHOR AUTHOR'S ORGANIZ ATION 10/26/2022 [employer] DATE CREATED AUTHOR AUTHOR'S ORGANIZ ATION 12/13/2022 [facility] ical Center DATE CREATED AUTHOR AUTHOR'S ORGANIZ ATION 10/19/2023 [facility] d[facility] Specialists EPIC DATE CREATED AUTHOR AUTHOR'S ORGANIZ ATION 10/21/2023 [facility] DATE CREATED AUTHOR AUTHOR'S ORGANIZ ATION 11/11/2023 [facility] Patient Care team informatio n (unrecognized section and content) Team Status: Active Member Role Status Dates Grady Romeo MD Primary Care Provider Active Team Status: Inactive Member Role Status Dates Grady Romeo MD Primary Care Provider Active Ender Aguilar Jr, MD Emergency Provider Active Treasury Consultant Relationship Specialty Start Date End Date Grady Romeo MD [address] [place] [address] PCP - General 11/06/99 Team Status: Inactive [...] BE BASED ON THE PRIMARY CLINICAL RECORDS. [facility] [employer] [facility]. provides no warranty or guarantee of the accuracy or completeness of information in this document.
--- NOTE | 2023-12-08 07:30 | XR_ITS ---
The [address] [address] Patient Name: MARYAN SOLIS MRN: [id number] date: 1945 Sex: M Assigned Patient Location: [facility] Current Patient Location: [facility] Accession/Order Number: [id number] Exam Date: 12/08/2023 07:37 Report Date: 12/08/2023 08:42 At the request of: MARCO A FAIRBANKS Procedure: XR abdomen 1V EXAMINATION: XR abdomen 1V HISTORY: BPH With Obstruction N40.1, Nocturia R35.1, Kidney Stones N2 COMPARISON: XR KUB 09/12/2022 FINDINGS: KIDNEY/URETER - RIGHT: Stable 7 mm stone within right kidney inferior pole. KIDNEY/URETER - LEFT: 1 mm calcification projecting over left renal pelvis. PELVIS: No visible ureteral stones. Stable lower left pelvic calcifications favor phleboliths. BOWEL: No abnormal dilation or deviation. BONES: No acute abnormality. OTHER: Negative. No abnormal gaseous collections. XR/XR abdomen 1V IMPRESSION: 1. Stable right nephrolithiasis. 2. New left renal pelvis calcification versus overlying summation artifact. Electronically authenticated by: FLORENCE NEWMAN Date: 12/08/2023 08:42
== END 2023-12-08 07:21 | disposition home or self-care (01) ==
LOC: RAD 07:22
PROVIDERS: PCP Family Medicine; Visit Provider Urology
DX: N40.1 Benign prostatic hyperplasia with lower urinary tract symptoms (principal); R35.1 Nocturia; N20.0 Calculus of kidney
CPT/HCPCS: 74018

== ENCOUNTER 2024-10-08 07:45 | Outpatient (OUT) | payer MEDICARE, SELFPAY ==
[2024-10-08 08:05] LABS: Basophils Absolute Auto 0.1 10^3/uL (0.0-0.1); Basophils Percent Auto 1.3 % (0.2-2.0); Eosinophils Absolute Auto 0.7 10^3/uL (0.0-0.7); Eosinophils Percent Auto 9.3 % (0.9-7.0); Hematocrit 40.4 % (42.0-54.0); Hemoglobin 13.4 g/dL (14.0-18.0); Immature Granulocytes Abs Auto 0.01 10^3/uL (0.00-0.03); Immature Granulocytes Pct Auto 0.1 % (0.0-0.5); Lymphocytes Absolute Auto 1.7 10^3/uL (1.2-3.8); Lymphocytes Percent Auto 23.5 % (20.5-60.0); Mean Corpuscular HGB Conc 33.2 g/dL (29.9-35.2); Mean Corpuscular Hemoglobin 31.7 pg (25.9-34.0); Mean Corpuscular Volume 95.5 fL (80.0-94.0); Mean Platelet Volume 9.4 fL (9.5-13.5); Monocytes Absolute Auto 0.7 10^3/uL (0.3-0.8); Monocytes Percent Auto 9.8 % (1.7-12.0); Neutrophils Absolute Auto 3.9 10^3/uL (1.4-6.5); Platelet Count 248 10^3/uL (150-450); Red Blood Count 4.23 10^6/uL (4.70-6.10); Red Cell Distribution Width 12.5 % (11.0-15.0)
--- OUTSIDE RECORDS SUMMARY | 2024-10-08 08:11 | XMS_ITS | CCD ---
Author Organization [facility] Care Team Providers Care Extruding Machine Operator Name Role Phone Grady Romeo Unavailable Unavailable Unavailable DR CJ LICONA Admitting Unavailable MAGDI, DR STRICKLAND Attending Unavailable AGUEDA, DR DUONG Primary Care Unavailable MAGDI, DR STRICKLAND Consulting Unavailable ZAC, DR KIM Walsh Consulting Unavailable EDIE NAGEL Admitting Unavailable EDIE NAGEL Attending Unavailable AGUEDA, DR DUONG Primary Care Unavailable EDIE NAGEL Consulting Unavailable Grady Romeo Primary Care Unavailab ALEJANDRO Benitez Attending Unavailable ALEJANDRO Pryor Referring Unavailable GRADY ROMEO Primary Care Physician Unavail able MD Grady Romeo Primary Care Provider MD Ender Aguilar Jr Emergency Provider Grady Romeo MD Primary Care Provider Ender Aguilar Jr Admitting Unavailable Grady Romeo Primary Care Unavailable Ender Aguilar Jr Attending Unavailable Grady Romeo Attending Unavailable Grady Romeo Primary Care Unavailable Grady Romeo Admitting Unavailable MD Grady Romeo Attending Provider Chucho Sullivan Unavailable GRADY ROMEO Attending Unavailable GRADY ROMEO Attending Unavailable GRADY ROMEO Attending Unavailable KANDY LONGORIA Attending Unavailable MAYANK STUBBS Referring Unavailable GRADY ROMEO Attending Unavailable Grady Romeo MD Unavailable [phone] Grady Romeo MD Primary Care Provider Cj Licona MD Unavailable Dov Maza MD Unavailable DOV MAZA Attending Unavailable GRADY ROMEO Primary Care Unavailable Grady Romeo MD Unavailable [phone] Grady Romeo MD Primary Care Provider TAVO AWAD Attending UnavailTAVO Choudhury Attending Unavailab nunes Allergies Allergy Classification Reported Allergen(s) Allergy Type Date of Onset Reaction(s) Facility (7 sources) Clarithromycin; Translations: [clarithromycin] Drug Allergy 3 Unknown [facility] (1 source) Clarithromycin Drug Allergy [facility] (1 source) Finasteride Drug Allergy [facility] (1 source) Naproxen Drug Allergy [facility] (1 source) Erythromycin Drug Allergy 3 [facility]ository (9 sources) Clarithromycin Allergy to substance 3 Nausea Only [facility] (9 sources) Famotidine Allergy to substance 3 [facility] (9 sources) Methocarbamol Drug Allergy 3 Other [facility] Medications Current Medications Medication Drug Class(es) Dates Sig (Normalized) Sig (Original) acetaminophen 325 mg / HYDROcodone bitartrate 5 mg oral tablet (2 sources) Opioid Agonist Start: 09-11-2023 take 1 tablet by mouth every six hours Hydrocodone-Acet aminophen Active 1 - 2 TAB PO Q6H 15 3 September 11, 2023 aspirin 81 mg oral tablet (16 sources) Platelet Aggregation Inhibitor, Nonsteroidal Anti-inflammatory Drug Start: 08-07-2020 take 81 mg by mouth once daily Aspirin Active 81 MG PO Daily July 28, 2021 11:00pm take 1 tablet by mouth in the mo rning aspirin (ASPIR) 81 MG EC tablet Take 81 mg by mouth in the morning. Active atorvastatin 40 mg oral tablet (19 sources) HMG-CoA Reductase Inhibitor Start: 08-07-2020 End: 02-23-2025 take 1 tablet by mouth at bedtime atorvastatin (Lipitor) 40 MG tablet Indications: Mixed hyperlipidemia (CMS/HCC) Take 1 tablet (40 mg) by mouth at bedtime 90 tablet 1 08/27/2024 02/23/2025 Active bifidobacterium animalis [id number] unt / lactobacillus acidophilus [id number] unt oral capsule (4 sources) L. acidophilus/Bifid. animalis 32 billion cell capsule Take by mouth. 0 Active Probiotic CAPS 1 00 mg daily Quantity: 0 Refills: 0 Ordered: 08-Oct-2021 DO Active docusate sodium 50 mg / sennosides, senior care 8.6 mg oral tablet (11 sources) Start: 09-11-2023 take 2 tablets by mouth every twenty-four hours as needed [facility] Senna Plus 8.6-50 MG tablet Take 2 tablets by mouth Daily as needed. 09/11/2023 Active ketorolac tromethamine 5 mg/ml ophthalmic solution (8 sources) Nonsteroidal Anti-inflammatory Drug, Cyclooxygenase Inhibitor Start: 08-08-2024 End: 09-07-2024 take 1 drop(s) into the eye(s) in the morning ketorolac (Acular) 0.5 % ophthalmic solution Indications: Age-related nuclear cataract of both eyes Administer 1 drop into affected eye(s) in the morning and 1 drop before bedtime. 5 mL 1 08/08/2024 09/07/2024 Active Lactobacillus acidophilus (1 source) Start: 08-07-2020 Acidophilus Daily, Refill(s) 0 Start Date: 08/07/20 Status: Ordered Lactobacillus Combination No.4 (Probiotic) 3 billion cell Capsule (2 sources) Start: 07-29-2021 take 3 capsules by mouth once daily Lactobacillus Combination No.4 (Probiotic) 3 billion cell Capsule Active 3000 MMU CELLS PO Daily July 28, 2021 11:00pm latanoprost 0.05 mg/ml ophthalmic solution (8 sources) Prostaglandin Analog Start: 08-08-2024 End: 08-08-2025 take 1 drop(s) into the eye(s) at bedtime latanoprost (Xalatan) 0.005 % ophthalmic solution Indications: Primary open angle glaucoma (POAG) of both eyes, mild stage (CMS/HCC) Administer 1 drop into both eyes at bedtime 2.5 mL 6 08/08/2024 08/08/2025 Active methylPREDNISolone 4 mg oral tablet (2 sources) Corticosteroid Start: 09-11-2023 take 1 tablet by mouth once Methylprednisolone (Medrol (Carmine)) 4 mg tablets,dose pack Active 1 dose pk PO per package directions September 11, 2023 12:00am Multiple Vitamins-Minerals (ONE DAILY ADULTS 50+ PO) (9 sources) Multiple Vitamins-Minerals (ONE DAILY ADULTS 50+ PO) 1 (one) time each day at the same time. Active Multivitamin preparation (2 sources) Start: 07-29-2021 take 1 tablet by mouth once daily Multivitamin Active 1 TAB PO Daily July 28, 2021 11:00pm multivitamin with iron (pediatric multivitamin-iron) tablet chewable split tablet (1 source) multivitamin wit h iron (pediatric multivitamin-iron) tablet chewable split tablet Take 1 half tablet by mouth once daily. 0 Active Multivitamins (1 source) Multivitamins as directed Orally Active ofloxacin 3 mg/ml ophthalmic solution (4 sources) Quinolone Antimicrobial Start: 08-08-2024 End: 08-12-2024 take 1 drop(s) into the eye(s) five times daily ofloxacin (Ocuflox) 0.3 % ophthalmic solution Indications: Age-related nuclear cataract of both eyes Administer 1 drop into the right eye 5 (five) times a day for 1 day Starting 1 day before surgery, continue after surgery as directed 5 mL 1 08/08/2024 08/12/2024 Active Omeprazole (7 sources) Proton Pump Inhibitor Start: 09-20-2021 omeprazole Oral, Daily, Refills(s) 0 Start Date: 09/20/21 Status: Ordered Start: 07-29-2021 take 40 mg by mouth twice bulmaro y Omeprazole Active 40 MG PO Twice daily 112 56 July 28, 2021 11:00pm One-A-Day Men's Health Formula (1 source) Start: 08-07-2020 One-A-Day Men' s Health Formula Oral, Daily, Refill(s) 0 Start Date: 08/07/20 Status: Ordered predniSONE 20 mg oral tablet (2 sources) Start: 08-12-2024 End: 08-17-2024 take 2 tablets by mouth once daily predniSONE (Deltasone) 20 MG tablet Indications: Wood dust asthma (CMS/HCC) Take 2 tablets (40 mg) by mouth Daily for 5 days 10 tablet 08/12/2024 08/17/2024 Active Probiotic Product (PROBIOTIC 10 ULTRA STRENGTH PO) (9 sources) take 1 capsule by mouth in the morning Probiotic Product (PROBIOTIC 10 ULTRA STRENGTH PO) Take 1 capsule by mouth in the morning. Active simvastatin 40 mg oral tablet (1 source) HMG-CoA Reductase Inhibitor Simvastatin 40 MG 1 tablet every evening Orally Once a day for 30 day(s) Active Completed/Discontinued Medications Medication Drug Class(es) Dates Sig (Normalized) Sig (Original) Multi Vitamin TABS (3 sources) Multi Vitamin TA BS TAKE 1 TABLET DAILY. Quantity: 0 Refills: 0 Ordered: 08-Oct-2021 DO Active prednisoLONE acetate 10 mg/ml ophthalmic suspension (7 sources) Corticosteroid Start: 08-08-2024 End: 08-27-2024 prednisoLONE acetate (Pred-Forte) 1 % ophthalmic suspension Indications: Age-related nuclear cataract of both eyes Administer 1 drop into both eyes in the morning and 1 drop at noon and 1 drop in the evening and 1 drop before bedtime. Do all this for 14 days. 5 mL 1 08/08/2024 08/27/2024 Problems Active Problems Problem Classification Problem Date Documented Da te Episodic/Chronic Acute myocardial infarction (1 source) Myocardial infarction 08-07-2020 Chronic Cataract (10 sources) Bilateral age-related nuclear cataracts; Translations: [Age-related nuclear cataract, bilateral] Onset: 08-08-2024 08-08-2024 Chronic Coronary atherosclerosis and other heart disease (14 sources) History of myocardial infarction; Translations: [Old myocardial infarction] Onset: 10-10-2022 Chronic Deficiency and other anemia (11 sources) Iron deficiency anemia due to blood loss; Translations: [Iron deficiency anemia secondary to blood loss (chronic)] Onset: 09-04-2023 09-04-2023 Chronic Deficiency and other anemia (2 sources) Iron deficiency anemia; Translations: [Iron deficiency anemia, unspecified] Episodic Disorders of lipid metabolism (20 sources) Hyperlipidemia; Translations: [Other and unspecified hyperlipidemia] Onset: 10-15-2022 08-07-2020 Chronic Diverticulosis and diverticulitis (9 sources) Diverticular disease; Translations: [Diverticulosis of intestine, part unspecified, without perforation or abscess without bleeding] Onset: 09-04-2023 09-04-2023 Chronic Esophageal disorders (12 sources) Terminal esophageal web; Translations: [Esophageal obstruction] Onset: 09-04-2023 09-04-2023 Chronic Essential hypertension (4 sources) Essential hypertension; Translations: [Essential (primary) hypertension] Onset: 10-19-2023 10-19-2023 Chronic Genitourinary symptoms and ill-defined conditions (3 sources) Nocturia; Translations: [Nocturia] Onset: 12-12-2022 Episodic Glaucoma (10 sources) Primary open angle glaucoma; Translations: [Primary open-angle glaucoma, bilateral, mild stage] Onset: 08-08-2024 08-08-2024 Chronic Hyperplasia of prostate (19 sources) Benign prostatic hyperplasia; Translations: [Hypertrophy (benign) of prostate without urinary obstruction and other lower urinary tract symptom (LUTS)] Onset: 10-15-2022 Chronic Lung disease due to external agents (2 sources) 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; Translations: [Hypersensitivity pneumonitis due to other organic dusts] 08-12-2024 Chronic Malaise and fatigue (12 sources) Chronic fatigue syndrome; Translations: [Chronic fatigue, unspecified] Onset: 09-04-2023 09-04-2023 Chronic Occlusion or stenosis of precerebral arteries (9 sources) Bilateral stenosis of carotid arteries; Translations: [Occlusion and stenosis of bilateral carotid arteries] Onset: 09-04-2023 10-17-2023 Chronic Other bone disease and musculoskeletal deformities (9 sources) Idiopathic scoliosis of thoracic spine; Translations: [Other idiopathic scoliosis, thoracic region] Onset: 09-04-2023 09-04-2023 Chronic Other circulatory disease (1 source) Cardiac [...] in right leg] Onset: 09-11-2023 Episodic Other gastrointestinal disorders (1 source) Occult blood in stools; Translations: [Other fecal abnormalities] Episodic Other nervous system disorders (1 source) Other chronic pain; Translations: [Other chronic pain] Onset: 11-10-2023 Chronic Other nervous system disorders (1 source) Chronic pain; Translations: [Other chronic pain] Chronic Other nervous system disorders (1 source) Other chronic pain Chronic Other nutritional; endocrine; and metabolic disorders (4 sources) Overweight in adulthood with body mass index of 25 or more but less than 30; Translations: [Overweight] Episodic Other screening for suspected conditions (not mental disorders or infectious disease) (3 sources) Raised prostate specific antigen; Translations: [Patient encounter status] 03-02-2021 Episodic Peripheral and visceral atherosclerosis (9 sources) Abdominal aortic atherosclerosis; Translations: [Atherosclerosis of aorta] Onset: 09-04-2023 10-17-2023 Chronic Residual codes; unclassified (2 sources) Contact with and (suspected) exposure to mold (toxic); Translations: [Contact with and (suspected) exposure to mold] 08-12-2024 Episodic Spondylosis; intervertebral disc disorders; other back problems (20 sources) Other intervertebral disc degeneration, lumbar region; Translations: [Lumbosacral spondylosis without myelopathy] Onset: 09-04-2023 Chronic Past or Other Problems Problem Classification Problem Date Documented Date Episodic/Chronic Calculus of urinary tract (15 sources) Calculus of kidney; Translations: [Kidney stone] Onset: 09-12-2022 Episodic Mood disorders (9 sources) Mood disorders Onset: 10-17-2023 10-17-2023 Other connective tissue disease (9 sources) Neurologic disorder due to degeneration of lumbar intervertebral disc; Translations: [Other symptoms and signs involving the nervous system] Onset: 10-17-2023 10-17-2023 Episodic Other diseases of veins and lymphatics (9 sources) Vascular insufficiency; Translations: [Venous insufficiency (chronic) (peripheral)] Onset: 09-04-2023 09-04-2023 Episodic Other nutritional; endocrine; and metabolic disorders (9 sources) Overweight; Translations: [Overweight] Onset: 09-04-2023 09-04-2023 Episodic Spondylosis; intervertebral disc disorders; other back problems (14 sources) Lumbar radiculopathy; Translations: [Radiculopathy, lumbar region] Onset: 09-11-2023 09-11-2023 Episodic Unclassified (3 sources) Never smoked tobacco; Translations: [Never a smoker] Unclassified (1 source) Onset: 10-19-2023 10-19-2023 Results Test Name Value Interpretation Reference Range Facility Ophthalmic OCT panelOrdered By: Janna Valadez on 08-08-2024 [facility] Radiology Study observation (narrative) [facility] Medical US Eye+Orbit - bilateralon 1 Diagnosis: Cataract both eyes (OU) Testing Indication: Performed for preop measurements in the determination of an intraocular lens (IOL) for both eyes (OU) Test Reliability: Good quality both eyes (OU) Interpretation: Good measurements for intraocular lens (IOL) calculation purposes. Calculation made for both eyes (OU). [facility] Usound Radiology Study observation (narrative) [facility] Medical Screenson 12-13-2023 Screens [id number] 20 [id number] Normal [facility] Ambulatory Visit Summaryon 0 12-12-2023 Ambulatory Visit Summary FARRUKH BABB :1945 Visit Date:12/12/2023 Ambulatory Visit Instructions Your Diagnosis BPH with obstruction/lower urinary tract symptoms Kidney stones Tests Performed XR Abdomen 1 View -- Results Pending -- Please visit your patient portal for your results or contact your primary care physician. Your Care Team Attending Physician - ELE AWAD PA-C Primary Care Physician - AGUEDA MAHONEY, GRADY Garcia This Is Your Medications List Contact prescribing physician if questions or concerns aspirin (aspirin 81 mg oral tablet) atorvastatin (atorvastatin 40 mg Tab) lactobacillus acidophilus (Acidophilus) multivitamin (One-A-Day Men's Health Formula) [Image Removed: STOP]Stop taking these medications omeprazole Procedures Performed Endoscopy (08/20/2021), Colonoscopy (08/06/2021), Transurethral resection of prostate (03/25/2021), Cystoscope (03/02/2021), Transrectal biopsy of prostate using ultrasound (US) guidance (08/25/2020), Transrectal biopsy of prostate using ultrasound (US) guidance (04/04/2017), Appendectomy, IH - Inguinal hernia, Neck class, Tonsillectomy. Discharge Vitals Heart Rate (Peripheral) 81 Respiratory Rate 16 Blood Pressure 120/69 Height 180 cm Height 71 in Weight 81.8 kg Weight 179.96 lb BMI 25.25 What to do next Scheduled Follow-Up Appointments Monday 8:40 AM EST With: ELE AWAD PA-C Where: [facility] Patient Educationon 12-12-19 Patient Education Nephrology Dietary Guidelines to Help Prevent Kidney Stones Kidney stones are deposits of minerals and salts that form inside your kidneys. Your risk of developing kidney stones may be greater depending on your diet, your lifestyle, the medicines you take, and whether you have certain medical conditions. Most people can lower their risks of developing kidney stones by following these dietary guidelines. Your dietitian may give you more specific instructions depending on your overall health and the type of kidney stones you tend to develop. What are tips for following this plan? Reading food labels ? Choose foods with no salt added or low-salt labels. Limit your salt (sodium) intake to less than 1,500 mg a day. ? Choose foods with calcium for each meal and snack. Try to eat about 300 mg of calcium at each meal. Foods that contain 200?500 mg of calcium a serving include: ? 8 oz (237 mL) of milk, gdwmawx-xiiltlxgctyj-v airy milk, and calcium-fortifiedfruit juice. Calcium-fortified means that calcium has been added to these drinks. ? 8 oz (237 mL) of kefir, yogurt, and soy yogurt. ? 4 oz (114 g) of tofu. ? 1 oz (28 g) of cheese. ? 1 cup (150 g) of dried figs. ? 1 cup (91 g) of cooked broccoli. ? One 3 oz (85 g) can of sardines or mackerel. Most people need 1,000?1,500 mg of calcium a day. Talk to your dietitian about how much calcium is recommended for you. Shopping ? Buy plenty of fresh fruits and vegetables. Most people do not need to avoid fruits and vegetables, even if these foods contain nutrients that may contribute to kidney stones. ? When shopping for convenience foods, choose: ? Whole pieces of fruit. ? Pre-made salads with dressing on the side. ? Low-fat fruit and yogurt smoothies. ? Avoid buying frozen meals or prepared deli foods. These can be high in sodium. ? Look for foods with live cultures, such as yogurt and kefir. ? Choose high-fiber grains, such as whole-wheat breads, oat bran, and wheat cereals. Cooking ? Do not add salt to food when cooking. Place a salt shaker on the table and allow each person to add their own salt to taste. ? Use vegetable protein, such as beans, textured vegetable protein (TVP), or tofu, instead of meat in pasta, casseroles, and soups. Meal planning ? Eat less salt, if told by your dietitian. To do this: ? Avoid eating processed or pre-made food. ? Avoid eating fast food. ? Eat less animal protein, including cheese, meat, poultry, or fish, if told by your dietitian. To do this: ? Limit the number of times you have meat, poultry, fish, or cheese each week. Eat a diet free of meat at least 2 days a week. ? Eat only one serving each day of meat, poultry, fish, or seafood. ? When you prepare animal proteins, cut pieces into small portion sizes. For most meat and fish, one serving is about the size of the palm of your hand. ? Eat at least five servings of fresh fruits and vegetables each day. To do this: ? Keep fruits and vegetables on hand for snacks. ? Eat one piece of fruit or a handful of berries with breakfast. ? Have a salad and fruit at lunch. ? Have two kinds of vegetables at dinner. ? You may be told to limit foods that are high in a substance called oxalate. These include: ? Spinach (cooked), rhubarb, beets, sweet potatoes, and [place] chard. ? Peanuts. ? Potato chips, cymro fries, and baked potatoes with skin on. ? Nuts and nut products. ? Chocolate. ? If you regularly take a diuretic medicine, make sure to eat at least 1 or 2 servings of fruits or vegetables that are high in potassium each day. These include: ? Avocado. ? Banana. ? Flynn, prune, carrot, or tomato juice. ? Baked potato. ? Cabbage. ? Beans and split peas. Lifestyle ? Drink enough fluid to keep your urine pale yellow. This is the most important thing you can do. Spread your fluid intake throughout the day. ? If you drink alcohol: ? Limit how much you have to: ? 0?1 drink a day for women who are not . ? 0?2 drinks a day for men. ? Know how much alcohol is in your drink. In the [place] one drink equals one 12 oz bottle of beer (355 mL), one 5 oz glass of wine (148 mL), or one 1? oz glass of hard liquor (44 mL). ? Lose weight if told by your health care provider. Work with your dietitian to find an eating plan and weight loss strategies that work best for you. General information ? Talk to your health care provider and dietitian about taking daily supplements. Depending on your health and the cause of your kidney stones, you may be told: ? Do not take high-dose supplements of vitamin C (1,000 mg a day or more). ? To take a calcium supplement. ? To take a daily probiotic supplement. ? To take other supplements such as magnesium, fish oil, or vitamin B6. ? Take uetl-xzm-cvmhfbm and prescription medicines only as told by your health care provider. These include supplements. What foods sh (more content not included)... Normal [facility] Urology Office/Clinic Noteon 12-12-2023 Urology Office/Clinic Note Chief Complaint 1 year with KUB HPI Staff 78 year old male here for 1 year with KUB. Previous DX: BPH w/LUTS, nocturia and kidney stones. S/P TURP done 03/25/21, TRUS/BX done 03/25/20 and Rt. ESWL 06/10/21. KUB done 12/08/23. Dysuria: no Incomplete bladder emptying: no Hematuria: no Frequency: no Urgency: no Nocturia: 3x's Stream: good stream Post void dripping: no Wearing pads/ Depends: no Urge incontinence: no Stress incontinence: no Incontinence without Sensory Awareness: no Abdominal pain: no Flank pain: no History of Present Illness staff HPI reviewed and agree. Review of Systems PHQ Score Initial Depression Screen Score: 0 SCORE no fever, chills, malaise, myalgia. no rash/lesions. no chest pain, palpitations, or SOB. no abdominal pain, nausea, vomiting. no unilateral calf swelling, redness, pain Physical Exam Vitals & Measurements HR: 81(Peripheral) RR: 16 BP: 120/69 HT: 71 in HT: 180 cm WT: 81.8 kg WT: 179.96 lb BMI: 25.25 General: nontoxic, NAD Mouth: moist mucosa Lungs: normal respiratory effort Cardio: regular rate, good distal perfusion Abdomen: nondistended, no suprapubic distention or tenderness, no CVA tenderness Neurologic: Grossly normal Skin: No rashes or suspicious lesions Assessment/Plan Dr. Licona pt 1. BPH with obstruction/lower urinary tract symptoms (N40.1: Benign prostatic hyperplasia with lower urinary tract symptoms) S/p TURP 03/25/21. S/p neg TRUS/bx 03/25/20. No longer checking PSAs. UA today negative. Not taking any BPH meds. IPSS 6, QoL 1. Nocturia 3x. Strong stream. No issues with emptying. Pt is currently taking no bladder/prostate medication and is highly satisfied with overall symptom control. No indication for treatment at this time. Continue to monitor. 2. Kidney stones (N20.0: Calculus of kidney) S/p R ESWL 06/10/21 Prior KUB 09/12/22 shows a 7 mm right nephrolith and a possible left 2 mm calcification lateral to the left L4 transverse process. Current KUB 12/08/23 stable right 7 mm stone within right kidney inferior pole. Left 1 mm calcification projecting over left renal pelvis. stable/unchanged. Denies pain or stone episodes since last encounter. Pt to continue adequate hydration for stone prevention. Will repeat KUB in 1 year. Follow-up With When Contact Information RITESH VO, ELE Abrams, URL [address] [place] [address] Additional Instructions: 1 year w/ KUB Patient Education Dietary Guidelines to Help Prevent Kidney Stones Documentation recorded by the scribwilfredo Kwon accurately reflects the services(s) I performed and decisions made by me. Authenticated by Ele Awad PA-C on 12/12/2023 09:16:29. I, Paulette Kwon, personally scribed for Ele Awad PA-C on 12/12/2023 09:10:58. . Problem List/Past Medical History Ongoing BPH with [...] 40 mg Tab, Oral, Bedtime omeprazole, Oral, Daily, Not taking One-A-Day [facility] Formula, Oral, Daily Allergies clarithromycin (Nervousness) Social History Tobacco Never (less than 100 in lifetime) Tobacco Use:., 09/20/2021 Never (less than 100 in lifetime) Tobacco Use:. Never Smokeless Tobacco Use:., 03/02/2021 Family History Myocardial infarct: Father. Immunizations Vaccine Date Status influenza virus vaccine, inactivated 07/2023 Recorded SARS-CoV-2 (COVID-19) mRNA BNT-162b2 vax 01/01/2021 Recorded SARS-CoV-2 (COVID-19) mRNA BNT-162b2 vax 12/11/2020 Recorded influenza virus vaccine, inactivated 08/06/2020 Recorded Lab Results Ambulatory Point of Care Results Bilirubin Urine Dipstick: Negative (12/12/23 08:52:00) Blood Urine Dipstick: Negative (12/12/23 08:52:00) Glucose Urine Dipstick: Negative (12/12/23 08:52:00) Ketones Urine Dipstick: Negative (12/12/23 08:52:00) Leukocytes Urine Dipstick: Trace (12/12/23 08:52:00) Nitrite Urine Dipstick: Negative (12/12/23 08:52:00) Protein Urine Dipstick: Negative (12/12/23 08:52:00) Specific [place] Urine Dipstick: 1.020 (12/12/23 08:52:00) Urine Appearance Urine Dipstick: Clear (12/12/23 08:52:00) Urine Color Urine Dipstick: Yellow (12/12/23 08:52:00) Urobilinogen Urine Dipstick: Normal 0.2-1 EU/dl (12/12/23 08:52:00) pH Urine Dipstick: 6.5 (12/12/23 08:52:00) Normal [facility] Comment on above: Result Comment: Elec tronically Signed By: ELE AWAD PA-C\.br\Date and Time Signed: 12/12/23 09:16 EST\.br\Electronically Co-Signed By: Paulette Kwon\.br\Date and Time Co-Signed: 12/12/23 09:11 EST RAD - MISCon 12-09-2023 RAD - MISC [id number] 20 [id number] 0TIFF Normal [facility] XR lumbar spine AP/LAT/FLX/E XTon 11-10-2023 XR lumbar spine AP/LAT/FLX/EXT [facility] [place] [address] XRay Report Signed Patient: Farrukh Babb MR#: [id number] : 1945 Acct:[id number] Age/Sex: 78 / M ADM Date: 11/10/23 Loc: XD Room: Type: [facility] Attending Dr: Grady Romeo MD [...] Bg Gurrola M.D.11/10/2023 9:29 PM Dictation Location: [facility]--05 Transcribed By: [facility] 11/10/232128 Dictated By: Bg Gurrola DO 11/10/232126 Signed By: 11/10/232128 Normal [facility] XR hip RT min 2V(w/wo pelvis )*on 09-11-2023 XR hip RT min 2V(w/wo pelvis)* [facility] [place] [address] [place] [address] XRay Report Signed Patient: Farrukh Babb MR#: [id number] : 1945 Acct:[id number] Age/Sex: 78 / M ADM Date: 09/11/23 Loc: ER Room: Type: [facility] ER Attending Dr: Copies to: [...] Micheal Jett M.D.09/11/2023 11:03 AM Dictation Location: [facility]12 Transcribed By: KINA 09/11/231102 Dictated By: Micheal Jett II, MD 09/11/23 Signed By: 09/11/23 110 [facility] XR lumbar spine 2-3V*on XR lumbar spine 2-3V* [facility] [place] [address] [place] [id number] XRay Report Signed Patient: Farrukh Babb MR#: [id number] : 1945 Acct:[id number] Age/Sex: 78 / M ADM Date: 09/11/23 Loc: ER Room: Type: [facility] ER Attending Dr: Copies to: [...] Micheal Jett M.D.09/11/2023 11:04 AM Dictation Location: [place] [address] Transcribed By: [facility] 09/11/23 110 Dictated By: Micheal Jett II, MD 09/11/23 110 Signed By: 09/11/231103 [facility] Office Visit (Cardiology)on 10-19-2022 Follow-up visit Diagnoses/Problems [...] ALT - Alanine Aminotransferase, Serum; Status:Active; Requested for:[id number]; AST; Status:Active; Requested for:[id number]; Basic Metabolic Panel; Status:Active; Requested for:[id number]; Lipid Panel; Status:Active; Requested for:[id number]; Overweight with body mass index (BMI) of 25 to 25.9 in adult Healthy Weight Tips; Status:Complete; Done: [id number] Patient Instructions Please bring all medicines, vitamins, [...] 2021. He has followed routinely with Dr. Loreznana since 2008 hospitalization for atypical chest pain [...] ADLs. 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 He has no stairs at [...] Delayed ReleaseTAKE 1 CAPSULE TWICE DAILY. Probiotic [id number] mg daily Allergies Medication clarithromycin Allergy; Recorded By: Amanda Watkins; 09/23/2021 10:22:16 AM Social History Problems Alcohol use (V49.89) (Z78.9) Caffeine use (V49.89) (Z78.9) 1 cup of coffee Never a smoker No illicit drug use Review of Systems Constitutional: not feeling tired. Cardiovascular: no chest pain, no palpitations and no low (more content not included)... Normal [employer] Tobacco Screening.on Adult depression screening assessment No [facility] 250 DO Work Phone: Fall risk assessment a) No falls within the last year [facility] 250 DO Work Phone: Tobacco use status [facility] b) No [facility] DO Work Phone: LIPID PROFILEon 10-10-2022 CHOL-HDL RATIO NORM SEE BELOW Normal [facility] Comment on above: Result Comment: 3.3 - 4.4 LOW RISK 4.4 - 7.1 AVERAGE RISK 7.1 - 11.0 MODERATE RISK >11.0 HIGH RISK Performed By: #### B MP, LIPID, AST, ALT #### [facility] [address] [address] [address] Marisa Curtis Cholesterol [Mass/Vol] 111 mg/dL Normal <=200 [facility] Comment on above: Performed By: #### B MP, LIPID, AST, ALT #### [facility] [address] [address] [address] Marisa Curtis Cholesterol in HDL [Mass/Vol] 53 mg/dL Normal 40-60 [facility] Comment on above: Performed By: #### B MP, LIPID, AST, ALT #### [facility] [address] [address] [address] Marisa Curtis Cholesterol in LDL [Mass/Vol] 41.6 mg/dL Normal [facility] Comment on above: Performed By: #### B MP, LIPID, AST, ALT #### [facility] [address] [address] [address] Marisa Curtis Cholesterol.total/ Cholesterol in HDL [Mass ratio] 2.1 {ratio} Normal [facility] Comment on above: Performed By: #### B MP, LIPID, AST, ALT #### [facility] [address] [address] [address] Marisa Curtis HDL NORMAL > or = 60 mg/dl - LO W CARDIOVASCULAR RISK <40 mg/dl - HIGH CARDIOVASCULAR RISK Normal [facility] Comment on above: Performed By: #### B MP, LIPID, AST, ALT #### [facility] [address] [address] [address] Marisa Curtis LDL CALC NORMAL SEE BELOW Normal [facility] Comment on above: Result Comment: <100 mg/dl OPTIMAL 100 - 129 mg/dl NEAR OR ABOVE OPTIMAL 130 - 159 mg/dl BORDERLINE HIGH 160 - 189 mg/dl HIGH >190 mg/dl VERY HIGH Performed By: #### B MP, LIPID, AST, ALT #### [facility] [address] [address] [address] Marisa Curtis Triglyceride [Mass/Vol] 82 mg/dL Normal <=150 [facility] Comment on above: Performed By: #### B MP, LIPID, AST, ALT #### [facility] [address] [address] [address] Marisa Curtis VLDL CALC 16.4 mg/dL Normal [facility] Comment on above: Performed By: #### B MP, LIPID, AST, ALT #### [facility] [address] [address] [address] Marisa Curtis PROF CHEM 8 (BAS METB)on Anion gap [Moles/Vol] 10.1 mmol/L Normal [facility] Comment on above: Performed By: #### B MP, LIPID, AST, ALT #### [facility] [address] [address] [address] Marisa Curtis Calcium [Mass/Vol] 9.1 mg/dL Normal 8.5-10.1 [facility] Comment on above: Performed By: #### B MP, LIPID, AST, ALT #### [facility] [address] [address] [address] Marisa Curtis Chloride [Moles/Vol] 104 mmol/L Normal 98-107 [facility] Comment on above: Performed By: #### B MP, LIPID, AST, ALT #### [facility] [address] [address] [address] Marisa Curtis CO2 [Moles/Vol] 30.9 mmol/L Normal 21.0-32.0 [place] Comment on above: Performed By: #### B MP, LIPID, AST, ALT #### [facility] [address] [address] [address] Marisa Curtis Creatinine [Mass/Vol] 0.92 mg/dL Normal 0.70-1.30 [facility] Comment on above: Performed By: #### B MP, LIPID, AST, ALT #### [facility] [address] [place] [address] Dr. Marisa Curtis EGFR-AF MONTENEGRIN >60 Normal >=60 [place] Comment on above: Performed By: #### B MP, LIPID, AST, ALT #### [facility] [address] [address] [address] Marisa Curtis EGFR-NON AF MONTENEGRIN >60 Normal >=60 [facility] Comment on above: Performed By: #### B MP, LIPID, AST, ALT #### [facility] [address] [place] [address] Dr. Marisa Curtis Glucose [Mass/Vol] 100 mg/dL Normal 74-106 [facility] Comment on above: Performed By: #### B MP, LIPID, AST, ALT #### [facility] [address] [place] [address] Dr. Marisa Curtis Potassium [Moles/Vol] 4.0 mmol/L Normal 3.5-5.1 [facility] Comment on above: Performed By: #### B MP, LIPID, AST, ALT #### [facility] [address] [place] [address] Dr. Marisa Curtis Sodium [Moles/Vol] 141 mmol/L Normal 136-145 [facility] Comment on above: Performed By: #### B MP, LIPID, AST, ALT #### [facility] [address] [address] [address] Marisa Curtis Urea nitrogen [Mass/Vol] 19.0 mg/dL Critically high 7.0-18.0 [facility] Comment on above: Performed By: #### B MP, LIPID, AST, ALT #### [facility] [address] [place] [address] Dr. Marisa Curtis Urea nitrogen/Creatinin e [Mass ratio] 20.7 mg/mg Normal [facility] Comment on above: Performed By: #### B MP, LIPID, AST, ALT #### [facility] [address] [address] [address] Marisa Curtis SGOTon 10-10-2022 AST [Catalytic activity/Vol] 23 U/L Normal 15-37 [facility] Comment on above: Performed By: #### B MP, LIPID, AST, ALT #### [facility] [address] [place], [place] [address] Dr. [facility] 10-10-2022 ALT [Catalytic activity/Vol] 28 U/L Normal 16-63 [facility] Comment on above: Performed By: #### B MP, LIPID, AST, ALT #### [facility] [address] [place], [place] [address] Dr. Marisa Curtis XR KUB 1 VIEWon 09-12-2022 XR KUB [...] by: KIM FRANK Date: 2022-09-12 17:32 Normal [facility] Basic Metabolic Panelon 04-2 Anion gap [Moles/Vol] 15 mmol/L Normal 12-20 [facility] Marketing Support Coordinator Comment on above: Result Comment: Effe ctive 11/11/2019 reference range changed. Performed By: #### B RAYMUNDO LIPD #### [facility] [address] [place], [place] [id number] Calcium [Mass/Vol] 9.5 mg/dL Normal 8.6-10.2 [facility] Marketing Support Coordinator Comment on above: Performed By: #### B RAYMUNDO LIPD #### [facility] [address] [place], [place] [id number] Chloride [Moles/Vol] 105 mmol/L Normal 98-107 [facility] Marketing Support Coordinator Comment on above: Performed By: #### B RAYMUNDO LIPD #### [facility] [address] [place], [place] [id number] CO2 [Moles/Vol] 24 mmol/L Normal 20-31 [facility] Specialist Comment on above: Performed By: #### RONALD Barahona MP #### [facility] [address] [place], [place] [id number] Creatinine [Mass/Vol] 0.8 mg/dL Normal 0.7-1.4 [facility] Specialist Comment on above: Performed By: #### [place] FONSECA LIPRashida #### [facility] [address], [place] [id number] eGFRAA 119 mL/min/1.73m2 Normal >60 [facility] Comment on above: Performed By: #### RONALD Barahona MP #### [facility] [address], [place] [id number] eGFRNAA 98 mL/min/1.73m2 Normal >60 [facility] Specialist Comment on above: Performed By: #### RONALD Barahona MP #### [facility] [address], [place] [id number] Glucose [Mass/Vol] 100 mg/dL High 65-99 [facility] Specialist Comment on above: Result Comment: For FASTING Glucose --- ADA reference ranges: Normal 65-99 mg/dl Prediabetes 100-125 Diabetes >/= 126 Performed By: #### RONALD Barahona MP #### [facility] [address] [place], [place] [id number] Potassium [Moles/Vol] 4.2 mmol/L Normal 3.5-5.5 [facility] Comment on above: Performed By: #### RONALD Barahona MP #### [facility] [address], [place] [id number] Sodium [Moles/Vol] 140 mmol/L Normal 135-146 [facility] Specialist Comment on above: Performed By: #### RONALD Barahona MP #### [facility] [address] [place], [place] [id number] Urea nitrogen [Mass/Vol] 17 mg/dL Normal 7-25 [facility] Specialist Comment on above: Performed By: #### RONALD Barahona MP #### [facility] [address] [place], [place] [id number] Lipid Panelon 03-03-2022 Cholesterol [Mass/Vol] 118 mg/dL Low 125-200 [facility] Specialist Comment on above: Result Comment: Low risk < 200mg/dL Borderline risk 201-239 mg/dl High risk > or equal to 240 Performed By: #### B RAYMUNDO LIPRashida #### [facility] [address] [place], [place] [id number] Cholesterol in HDL [Mass/Vol] 45 mg/dL Normal >40 [facility] Specialist Comment on above: Result Comment: High Cardiovascular Risk HDL <40 mg/dL Low Cardiovascular Risk HDL > or equal to 60 mg/dl Performed By: #### B RAYMUNDO LIPRashida #### [facility] [address], [place] [id number] Cholesterol in LDL [Mass/Vol] 52 mg/dL Normal [facility] Comment on above: Result Comment: LDL ATP III CLASSIFICATION LDL less than 100 mg/dl Optimal LDL 100-129 mg/dl Near or above optimal LDL 130-159 Borderline high LDL 160-189 High LDL greater than 189 mg/dl Very High Performed By: #### B RAYMUNDO, LIPD #### [facility] [address], [place] [id number] Cholesterol in VLDL [Mass/Vol] 21 mg/dL Normal [facility] Specialist Comment on above: Performed By: #### B RAYMUNDO LIPRashida #### [facility] [address], [place] [id number] Cholesterol.total/ Cholesterol in HDL [Mass ratio] 3 {ratio} Normal [facility] Comment on above: Performed By: #### B RAYMUNDO, LIPD #### [facility] [address], [place] [id number] Triglyceride [Mass/Vol] 106 mg/dL Normal 30-150 [facility] Specialist Comment on above: Result Comment: TRIG ATPIII CLASSIFICATIONS TRIG less than 150 mg/dl Normal TRIG 150-199 mg/dl Borderline High TRIG 200-500 mg/dl High TRIG greather than 500 mg/dl Very High Performed By: #### B RAYMUNDO, LIPD #### [facility] [address], [place] [id number] US Carotid, Bilateralon 02-05 US Carotid, Bilateral [...] by Manoj Nogueira on 03/03/2022 0958 Normal [facility] Marketing Support Coordinator Tobacco Screening.on 021 Fall risk assessment a) No falls within the last year [facility] DO Work Phone: Tobacco use status [facility] b) No [facility] DO Work Phone: Vital Signs Date Time Vital Sign Value Performing Clinician Facility 08-27-2024 15:23-0400 Body height 177.8 cm Grady Romeo MD Work Phone: [facility] 08-27-2024 15:23-0400 Body mass index (BMI) [Ratio] 24.97 kg/m2 Grady Romeo MD Work Phone: [facility] 08-27-2024 15:23-0400 Body weight 78.93 kg Grady Romeo MD Work Phone: [facility] 08-12-2024 09:23-0400 Body height 177.8 cm Grady Romeo MD Work Phone: [facility] 08-12-2024 09:23-0400 Body mass index (BMI) [Ratio] 24.97 kg/m2 Grady Romeo MD Work Phone: [facility] 08-12-2024 09:23-0400 Body weight 78.93 kg Grady Romeo MD Work Phone: [facility] 08-12-2024 09:23-0400 Heart rate 96 /min Grady Romeo MD Work Phone: [facility] 08-12-2024 09:23-0400 SaO2% (BldA) [Mass fraction] 99 % Grady Romeo MD Work Phone: [facility] 10-19-2023 08:54-0500 Diastolic blood pressure 86 mm[Hg] Dov Maza MD Work Phone: [facility] 10-19-2023 08:54-0500 Systolic blood pressure 142 mm[Hg] Dov Maza MD Work Phone: [facility] 10-19-2023 08:41-0500 Body height 180.3 cm Dov Maza MD Work Phone: [facility] 10-19-2023 08:41-0500 Body mass index (BMI) [Ratio] 24.27 kg/m2 Dov Maza MD Work Phone: [facility] 10-19-2023 08:41-0500 Body weight 78.93 kg Dov Maza MD Work Phone: [facility] 10-19-2023 08:41-0500 Heart rate 86 /min Dov Maza MD Work Phone: [facility] 09-11-2023 02:57-0500 Diastolic blood pressure 90 mm[Hg] MD Grady Romeo Work Phone: [facility] 09-11-2023 02:57-0500 Heart rate 84 /min MD Grady Romeo Work Phone: [facility] 09-11-2023 02:57-0500 Respiratory rate 16 /min MD Grady Romeo Work Phone: [facility] 09-11-2023 02:57-0500 SaO2% (BldA) [Mass fraction] 97 % MD Grady Romeo Work Phone: [facility] 09-11-2023 02:57-0500 Systolic blood pressure 162 mm[Hg] MD Grady Romeo Work Phone: [facility] 09-11-2023 02:39-0500 Body temperature 98.1 [degF] MD Grady Romeo Work Phone: [facility] 09-11-2023 02:37-0500 Body height 180.34 cm MD Grady Romeo Work Phone: [facility] 09-11-2023 02:37-0500 Body weight 79.37 kg MD Grady Romeo Work Phone: [facility] 12-12-2022 12:40-0500 Blood Pressure Location Cj LICONA [facility] 12-12-2022 12:40-0500 Diastolic blood pressure 74 mm[Hg] Cjanand LICONA [facility] 12-12-2022 12:40-0500 Heart rate 70 /min Cj LICONA [facility] 12-12-2022 12:40-0500 Respiratory rate 16 /min Cj LICONA [facility] 12-12-2022 12:40-0500 Systolic blood pressure 132 mm[Hg] Cj LICONA [facility] 10-19-2022 09:25-0500 Body height 180.34 cm Grady Romeo Work Phone: [facility] 250 DO Work Phone: 10-19-2022 09:25-0500 Body mass index (BMI) [Ratio] 25.11 kg/m2 Grady Romeo Work Phone: [facility] 250 DO Work Phone: 10-19-2022 09:25-0500 Body surface area Derived from formula 2.02 m2 Grady Romeo Work Phone: [facility] 250 DO Work Phone: 10-19-2022 09:25-0500 Body weight 81.65 kg Grady Garciayer Work Phone: [facility] 250 DO Work Phone: 10-19-2022 09:25-0500 Diastolic blood pressure 78 mm[Hg] Grady Garciayer Work Phone: [facility] 250 DO Work Phone: 10-19-2022 09:25-0500 Heart rate 76 /min Grady Garciayer Work Phone: [facility] 250 DO Work Phone: 10-19-2022 09:25-0500 Systolic blood pressure 136 mm[Hg] Grady Garciayer Work Phone: [facility] 250 DO Work Phone: 10-08-2021 08:43-0500 Diastolic blood pressure 80 mm[Hg] Grady Garciayer Work Phone: [facility] 600 DO Work Phone: 10-08-2021 08:43-0500 Systolic blood pressure 138 mm[Hg] Grady Garciayer Work Phone: [facility] 600 DO Work Phone: 10-08-2021 08:31-0500 Body height 180.34 cm Grady Garciayer Work Phone: [facility] 600 DO Work Phone: 10-08-2021 08:31-0500 Body mass index (BMI) [Ratio] 26.08 kg/m2 Grady Romeo Work Phone: [facility] [employer] [facility] 600 DO Work Phone: 10-08-2021 08:31-0500 Body surface area Derived from formula 2.05 m2 Grady Romeo Work Phone: [facility] [facility] 600 DO Work Phone: 10-08-2021 08:31-0500 Body weight 84.82 kg Grady Romeo Work Phone: [facility] 600 DO Work Phone: 10-08-2021 08:31-0500 Diastolic blood pressure 101 mm[Hg] Grady Romeo Work Phone: [facility] [employer] 600 DO Work Phone: 10-08-2021 08:31-0500 Heart rate 90 /min Grady Romeo Work Phone: [facility] [employer] 600 DO Work Phone: 10-08-2021 08:31-0500 Systolic blood pressure 136 mm[Hg] Grady Romeo Work Phone: [facility] [employer] 600 DO Work Phone: Encounters Encounter Date Encounter Type Care Provider Facility Start: 12-17-2024 ambulatory TAVO AWAD Facility:[facility] Start: 08-27-2024 End: 08-27-2024 Office outpatient visit 15 minutes Grady Romeo MD Work Phone: [facility] Comment on above: Mixed hyperlipidemia (CMS/HCC) (Primary Dx); Chronic fatigue; Screening for diabetes mellitus (DM); Iron deficiency anemia due to chronic blood loss Start: 08-27-2024 End: 08-27-2024 Bamboo flowsheet Grady Romeo MD Work Phone: [facility] Start: 08-27-2024 End: 08-27-2024 Bamboo flowsheet Grady Romeo MD Work Phone: [facility] Start: 08-12-2024 End: 08-12-2024 Bamboo flowsheet Grady Romeo MD Work Phone: [facility] Start: 08-12-2024 End: 08-12-2024 Bamboo flowsheet Grady Romeo MD Work Phone: [facility] Start: 08-12-2024 End: 08-12-2024 Office outpatient visit 15 minutes Grady Romeo MD Work Phone: [facility] Comment on above: Wood dust asthma (CM S/HCC) (Primary Dx); Mold exposure Start: 08-12-2024 End: 08-12-2024 ambulatory GRADY ROMEO Not Available Start: 08-08-2024 End: 08-08-2024 Bamboo flowsheet Kandy Longoria DO Work Phone: [facility] Start: 08-08-2024 End: 08-08-2024 Bamboo flowsheet Kandy Longoria DO Work Phone: [facility] Start: 08-08-2024 End: 08-08-2024 ambulatory KANDY LONGORIA Not Available Start: 03-21-2024 End: 03-21-2024 ambulatory GRADY ROMEO Not Available Start: 12-12-2023 End: 12-12-2023 ambulatory TAVO AWAD Facility:[facility] Start: 11-30-2023 End: 11-30-2023 ambulatory Chucho Sullivan Other W4 Other Start: 11-30-2023 Office consultation new/estab patient 40 min Chucho Sullivan [facility] Start: 11-10-2023 End: 11-10-2023 ambulatory Grady Romeo Facility:[facility] Start: 11-10-2023 End: 11-10-2023 ambulatory MD Grady Romeo Work Phone: [facility] Work Phone: Start: 11-10-2023 End: 11-10-2023 Patient encounter procedure MD Grady Romeo Work Phone: [facility] [place] Work Phone: Start: 10-19-2023 End: 10-19-2023 Office outpatient visit 15 minutes Dov Maza MD Work Phone: [facility] Comment on above: Atherosclerosis of n ative coronary artery of [place] heart without angina pectoris; Mixed hyperlipidemia; Benign prostatic hyperplasia, unspecified whether lower urinary tract symptoms present; Essential hypertension Start: 10-19-2023 End: 10-19-2023 ambulatory [facility] Start: 10-17-2023 End: 10-17-2023 ambulatory GRADY ROMEO Not Available Start: 09-19-2023 End: 09-19-2023 ambulatory GARDY ROMEO Not Available Start: 09-11-2023 End: 09-11-2023 Emergency department patient visit Ender Aguilar Jr Facility:[facility] Start: 09-11-2023 End: 09-11-2023 Emergency department patient visit MD Grady Romeo Work Phone: [facility] Work Phone: Start: 12-12-2022 End: 12-12-2022 Patient encounter procedure Cj LICONA [facility] Start: 10-19-2022 Office outpatient vi sit 15 minutes Grady Romeo Work Phone: [facility] 250 DO Work Phone: Start: 10-19-2022 ambulatory Grady Romeo Facility:[id number] Start: 10-10-2022 End: 10-11-2022 ambulatory EDIE NAGEL Facility:[facility] Start: 09-12-2022 End: 09-13-[address] CJ LICONA Facility:[facility] Start: 09-06-2022 Telephone encounter Grady ornelas Work Phone: [facility] 250 DO Work Phone: Start: 10-21-2021 Rx Renewal Grady Stephenson er Work Phone: [facility] [place] [facility] 600 DO Work Phone: Imaging result normal Grady ornelas Work Phone: [facility] 250 DO Work Phone: Procedures Date Procedure Procedure Detail Performing Clinician Start: 08-08-2024 Computerized ophthal charity imaging optic nerve Kandy Longoria DO Work Phone: Start: 08-08-2024 Oph bmtry prtl coher intrfrmtry io lens pwr lucia Kandy Longoria DO Work Phone: Start: 08-08-2024 End: 08-08-2024 Ophth medical xm&eval compre new pt 1/> vst Age-related nuclear cataract of both eyes Kandy Longoria DO Work Phone: Comment on above: Age-related nuclear cataract of both eyes (Primary Dx); Primary open angle glaucoma (POAG) of both eyes, mild stage (CMS/HCC) Start: 11-10-2023 X-ray of lumbar spin e, four views MD Grady Romeo Work Phone: Start: 09-11-2023 Plain X-ray of right hip MD Grady Romeo Work Phone: Start: 09-11-2023 X-ray of lumbar spin e, two or three views MD Grady Romeo Work Phone: Start: 08-20-2021 Endoscopy Cj DUBOSE Start: 08-06-2021 Colonoscopy Cj DUBOSE Start: 03-25-2021 Transurethral prostatectomy Cj LICONA Start: 03-02-2021 Cystoscope, device (physical object) Cj LICONA Start: 08-25-2020 Transrectal biopsy o f prostate using ultrasound guidance Cj LICONA Start: 04-04-2017 Transrectal biopsy o f prostate using ultrasound guidance Cj LICONA Appendectomy Grady Garciaye r Work Phone: Appendectomy Cj LICONA Colonoscopy Baadalid Garciaye r Work Phone: Comment on above: nov 2016; Hernia repair Grady Stephenson er Work Phone: Inguinal hernia (disorder) Cj LICONA Neck class Cj LICONA Operative procedure on hand Grady Romeo Work Phone: Procedure on neck Grady ornelas Work Phone: Tonsillectomy Cj LICONA Plan of Treatment Date Care Activity Detail Author Start: 02-17-2025 End: 02-17-2025 Patient encounter procedure 02/17/2025 8:30 AM EDT Office Visit [facility] [address] [facility] 100 [place] [id number] Grady Romeo MD [address] [facility] 100 [place] [address] (Fax) [facility] Start: 10-17-2024 Medicare Annual Well ness (AWV) Medicare Annual Wellness (AWV) [facility] Start: 09-23-2024 End: 09-23-2024 Patient encounter procedure 09/23/2024 9:05 AM EST Procedure Visit [facility] Kandy Longoria, DO [address] [place] [address] [facility] Start: 08-29-2024 End: 08-29-2024 Patient encounter procedure [facility] Start: 08-27-2024 End: 08-27-2024 Patient encounter procedure 08/27/2024 3:40 PM EDT Office Visit [facility] [address] [place] [address] [place] [id number] Grady Romeo MD [address] [place] [address] (Fax) Mixed hyperlipidemia (CMS/HCC) [facility] Comment on above: Mixed hyperlipidemia (CMS/HCC) Start: 08-27-2024 End: 08-27-2025 CBC W Auto Differential panel - Blood CBC and differential Lab Routine Chronic fatigue Iron deficiency anemia due to chronic blood loss Expected: 08/27/2024 (Approximate), Expires: 08/27/2025 [facility] Work Phone: Comment on above: Expected: 08/27/2024 (Approximate), Expires: 08/27/2025 Start: 08-27-2024 End: 08-27-2025 Comprehensive metabolic 2000 panel - Serum or Plasma Comprehensive metabolic panel Lab Routine Chronic fatigue Screening for diabetes mellitus (DM) Expected: 08/27/2024 (Approximate), Expires: 08/27/2025 [facility] Comment on above: Expected: 08/27/2024 (Approximate), Expires: 08/27/2025 Start: 08-27-2024 End: 08-27-2025 Lipid 1996 panel - Serum or Plasma Lipid panel Lab Routine Mixed hyperlipidemia (CMS/HCC) Expected: 08/27/2024 (Approximate), Expires: 08/27/2025 [facility] Comment on above: Expected: 08/27/2024 (Approximate), Expires: 08/27/2025 Start: 08-12-2024 End: 08-12-2024 Patient encounter procedure 08/12/2024 9:30 AM EDT Office Visit [facility] [address] [facility] 100 [place] [phone] Grady Romeo MD [address] [place] [address] Arrived [facility] Comment on above: Arrived Start: 08-08-2024 End: 08-08-2024 Patient encounter procedure 08/08/2024 1:45 PM EDT Office Visit [facility] [address] [place] [phone] Kandy Longoria, DO [address] [place] [address] Arrived [facility] Comment on above: Arrived Start: 07-07-2024 Influenza vaccination Influenza Vacc ine (#1) [facility] Start: 10-19-2023 FUV, Provider: Dov Maza, Status: Pen, Time: 9:00 AM FUV, Provider: Dov Maza, Status: Pen, Time: 9:00 AM [facility] 250 DO Work Phone: Start: 09-11-2023 Plain X-ray of right hip XR hi p RT min 2V(w/wo pelvis)* [facility] Start: 09-11-2023 X-ray of lumbar spin e, two or three views XR lumbar spine 2-3V* [facility] Start: 09-11-2023 XR Hip - right 2 Views [facility] Start: 09-11-2023 XR Lumbar spine 2 or 3 Views [facility] Start: 10-19-2022 FUV, Provider: Edie Mathis, Status: Pen, Time: 9:30 AM FUV, Provider: Edie Mathis, Status: Pen, Time: 9:30 AM [facility] 250 DO Work Phone: Start: 10-18-2022 FUV, Provider: Rg Lorenzana, Status: Pen, Time: 8:30 AM FUV, Provider: Rg Lorenzana, Status: Pen, Time: 8:30 AM [facility] 600 DO Work Phone: Start: 06-26-2022 COVID-19 Vaccine (4 - Pfizer series) COVID-19 Vaccine (4 - Pfizer series) [facility] Start: 09-02-2016 DTaP/Tdap/Td Vaccine s (1 - Tdap) DTaP/Tdap/Td Vaccines (1 - Tdap) [facility] Start: 1995 Zoster Vaccines (1 of 2) Zoster Vacc kaya (1 of 2) [facility] Start: 1963 Diabetes mellitus screening Diabetes Screening [facility] Start: 1963 Hepatitis C screening Hepatitis C Sc reening [facility] Start: 1945 Lipid panel Lipid Panel [facility] Start: 1945 Medicare Annual Well ness Visit Medicare Annual Wellness Visit (AWV) [facility] Patient Education Radiculopathy Opioids for Short-Term Treatment of Pain ED [facility] Work Phone: Patient referral [facility] Work Phone: Immunizations Immunization Date Immunization Notes Care Provider Fa cili 07-12-2023 Influenza, Seasonal, Quadrivalent, Adjuvanted Kandy Longoria DO Work Phone: [facility] 07-12-2023 influenza virus vacc ine, unspecified formulation Kandy Longoria DO Work Phone: [facility] 08-22-2022 Fluad Quadrivalent 0 .5 ML Intramuscular Prefilled Syringe Grady Romeo Work Phone: [facility] 250 DO Work Phone: 05-01-2022 Comirnaty 30 MCG/0.3 ML Intramuscular Suspension Grady Romeo Work Phone: [facility] DO Work Phone: 08-10-2021 Pfizer-BioNTech COVI D-19 Vacc 30 MCG/0.3ML Intramuscular Suspension Grady Romeo Work Phone: [facility] 07-22-2021 Fluzone High-Dose Quadrivalent 0.7 ML Intramuscular Suspension Prefilled Syringe Grady Romeo Work Phone: [facility] 600 DO Work Phone: 07-22-2021 influenza, injectabl e, quadrivalent, preservative free Dov Maza MD Work Phone: [facility] Work Phone: 01-01-2021 Pfizer-BioNTech COVI D-19 Vacc 30 MCG/0.3ML Intramuscular Suspension Grady Romeo Work Phone: [facility] 12-11-2020 Pfizer-BioNTech COVI D-19 Vacc 30 MCG/0.3ML Intramuscular Suspension Grady Romeo Work Phone: [facility] 08-06-2020 influenza virus vacc ine, unspecified formulation Cj LICONA [facility] 07-20-2020 Fluzone High-Dose Quadrivalent 0.7 ML Intramuscular Suspension Prefilled Syringe Grady Romeo Work Phone: [facility] 600 DO Work Phone: 07-20-2020 influenza, high dose seasonal, preservative-free Dov Maza MD Work Phone: [facility] Work Phone: 08-05-2019 influenza, high dose seasonal, preservative-free Grady Romeo Work Phone: [facility] 600 DO Work Phone: 08-05-2019 pneumococcal conjuga te vaccine, 13 valent Dov Maza MD Work Phone: [facility] Work Phone: 08-05-2019 pneumococcal polysaccharide vaccine, 23 valent Grady Garciayer Work Phone: [facility] 09-06-2018 influenza, injectabl e, quadrivalent, preservative free Grady J [employer] Work Phone: [facility] 600 DO Work Phone: 08-06-2018 influenza, high dose seasonal, preservative-free Edadalid J Hemeyer Work Phone: [facility] 600 DO Work Phone: 08-06-2018 pneumococcal conjuga te vaccine, 13 valent Grayd Garcia [employer] Work Phone: [facility] 600 DO Work Phone: 10-26-2017 influenza virus vacc ine, unspecified formulation Dov Maza MD Work Phone: [facility] Work Phone: 10-26-2017 influenza, injectabl e, quadrivalent, preservative free Edadalid [employer] Work Phone: [facility] 600 DO Work Phone: 09-01-2016 tetanus and diphther ia toxoids, adsorbed, preservative free, for adult use (5 Lf of tetanus toxoid and 2 Lf of diphtheria toxoid) [employer] Work Phone: [facility] 600 DO Work Phone: 08-04-2016 influenza virus vacc ine, unspecified formulation Dov Maza MD Work Phone: [facility] Work Phone: 08-04-2016 influenza, high dose seasonal, preservative-free Grady Garcia [employer] Work Phone: [facility] 600 DO Work Phone: 08-04-2016 pneumococcal conjuga te vaccine, 13 valent Dov Maza MD Work Phone: [facility] Work Phone: 08-04-2016 pneumococcal polysaccharide vaccine, 23 valent Grady Romeo Work Phone: [facility] 07-22-2015 pneumococcal conjuga te vaccine, 13 valent Grady Garciayer Work Phone: [facility] 600 DO Work Phone: 07-22-2015 pneumococcal polysaccharide vaccine, 23 valent Kandy Longoria DO Work Phone: [facility] Payers Date Payer Category Payer Self-pay [id number] 2021 Medicaid [employer] MEDICARE A DVANTAGE [id number] 2021 Medicare [id number] 1959 Medicare [id number] 1945 Unknown [id number] 1945 Unknown [id number] 1945 Unknown [id number] 1945 Unknown [id number] 1945 Unknown [id number] 1945 Unknown [id number] 1945 Unknown [id number] [id number] 1945 Unknown [id number] 1945 Unknown [id number] 1945 Unknown [id number] 1945 Unknown [id number] Medicare [id number] Unknown [employer] Unknown [id number] Unknown [id number] Social History Date Type Detail Facility Start: 10-17-2023 End: 10-19-2023 Never a smoker Never a smoker [place] [address] DO Work Phone: Comment on above: 1 cup of coffee; Start: 09-20-2021 End: 09-04-2023 Tobacco smoking status Never smoked tobacco (finding) [facility] Start: 10-17-2023 End: 10-19-2023 Sex Assigned At Male [facility] Start: 1945 Sex Assigned At Male [facility] Start: 09-04-2023 End: 10-18-2023 Tobacco use and exposure Smokeless tobacco non-user [facility] Work Phone: Start: 10-19-2023 Alcohol intake Current drinke r of alcohol (finding) [facility] Work Phone: Start: 1945 Sex Assigned At Not on file [facility] Work Phone: Start: 10-09-2023 End: 10-19-2023 Exposure to SARS-CoV-2 (event) Not sure [facility] Start: 03-21-2024 End: 08-27-2024 Alcoholic beverage intake Ex-drinker (finding) [facility] Start: 09-04-2023 Alcohol Comment Caffeine intak e : 2-3 cups per day [facility] Medical Equipment Procedure Code Equipment Code Equipment Origin al Text Equipment Identifier Dates Capsule endoscopy, for patency of lumen evaluation Video capsule endoscopy system [id number] FDA Start: 09-02-2021 Functional Status Date Assessment Result Facility 12-12-2022 Functional Status N/A [facility] Clinical Notes 12-12-2022 to 08-27-2024 Grady Romeo MD - 08/27/2024 11:45 AM Evelyn Romeo MD - 08/12/2024 9:30 AM Lin Longoria DO - 08/08/2024 1:45 PM EDT Note Date & Type Note Facility 08-27-2024 History of Presen t illness Narrative Images from the original note were not included. Patient ID: Farrukh Babb is a 79 y.o. male who presents for: Hyperlipidemia Pt who presents for evaluation of dyslipidemia. A repeat fasting lipid profile was not done. The patient does not use medications that may worsen dyslipidemias (corticosteroids, progestins, anabolic steroids, diuretics, beta-blockers, amiodarone, cyclosporine, olanzapine). Exercise: daily. Pt states that he requested refill with cardiology and they denied it but they had told him last Oct that they didn't need to see him unless he had a heart attack but now he is in need of refills. Review of Systems Constitutional: Negative for activity change and fatigue. Respiratory: Negative for cough, shortness of breath and wheezing. Cardiovascular: Negative for chest pain, palpitations and leg swelling. Neurological: Negative for light-headedness and headaches. Objective The patient is pleasant and in no acute distress. The neck is supple and trachea is midline. No masses are appreciated. The heart is regular rate and rhythm without S3, S4. No murmur. The patient has normal respiratory pattern. The breath sounds are symmetrical without evidence of rhonchi or rales. No wheezing. The skin is warm and dry. The lower extremities have trace edema. The patient has good eye contact and speech is clear. Appropriate affect. Visit Vitals Ht 5' 10 Wt 174 lb BMI 24.97 kg/m Smoking Status Never BSA 1.97 m Component Ref Range & Units 10 mo ago (10/09/23) 10 mo ago (10/09/23) 10 mo ago (10/09/23) 10 mo ago (10/09/23) TRIGLYCERIDES <=150 mg/dL 82 29 R 20 R 141 R CHOLESTEROL <=200 mg/dL 129 3.9 R HDL CHOLESTEROL 40 - 60 mg/dL 67 High 8.1 R Comment: > or =60 mg/dl - LOW CARDIOVASCULAR RISK <40 mg/dl - HIGH CARDIOVASCULAR RISK LDL CHOLESTEROL CALCULATED mg/dL 46.0 100 R Comment: <100 mg/dl OPTIMAL 100-129 mg/dl NEAR OR ABOVE OPTIMAL 130-159 mg/dl BORDERLINE HIGH 160-189 mg/dl HIGH >190 mg/dl VERY HIGH VLDL CHOLESTEROL mg/dL 16.4 CHOL HDL RATIO 1.9 Allergies Allergen Reactions Clarithromycin Nausea Only Famotidine Other Reaction(s): fatigue Methocarbamol Other Current Outpatient Medications on File Prior to Visit Medication Sig Dispense Refill aspirin (ASPIR) 81 MG EC tablet Take 81 mg by mouth in the morning. [facility] Senna Plus 8.6-50 MG tablet Take 2 tablets by mouth Daily as needed. ketorolac (Acular) 0.5 % ophthalmic solution Administer 1 drop into affected eye(s) in the morning and 1 drop before bedtime. 5 mL 1 latanoprost (Xalatan) 0.005 % ophthalmic solution Administer 1 drop into both eyes at bedtime 2.5 mL 6 Multiple Vitamins-Minerals (ONE DAILY ADULTS 50+ PO) 1 (one) time each day at the same time. Probiotic Product (PROBIOTIC 10 ULTRA STRENGTH PO) Take 1 capsule by mouth in the morning. No current facility-administered medications on file prior to visit. 1. Mixed hyperlipidemia (CMS/HCC) (Primary) Chronic problem, stable, to goal. Tolerating medication. In prescribing a renewal to their current medication, consideration of the following encompasses moderate decision making; the current prescriptions and supplements, the current allergies and medication intolerances, current medical conditions, and potential drug interactions. Any changes to risks, benefits, and reason for renewing their current medication due to the above were discussed. The patient was given a chance to ask questions today and all questions were answered. The patient is to contact us if any other questions arise or if any problems occur. (Utilizing the original guidelines or the 2020 office/outpatient code guidelines for selecting the level of E/M service, In both sets of guidelines, prescription drug management appears in the moderate medical decision making (MDM) row. Neither the original guidelines nor the new guidelines state that a new prescription or change is needed in order to credit prescription drug management) - atorvastatin (Lipitor) 40 MG tablet; Take 1 tablet (40 mg) by mouth at bedtime Dispense: 90 tablet; Refill: 1 - Lipid panel; Future - Lipid panel 2. Chronic fatigue He is complaining of fatigue that has been ongoing for months. - CBC and differential; Future - Comprehensive metabolic panel; Future - CBC and differential - Comprehensive metabolic panel 3. Screening for diabetes mellitus (DM) - Comprehensive metabolic panel; Future - Comprehensive metabolic panel 4. Iron deficiency anemia due to chronic blood loss - CBC and differential; Future - CBC and differential documented in this encounter [facility] 08-12-2024 History of Presen t illness Narrative Images from the original note were not included. Patient ID: Farrukh Babb is a 79 y.o. male who presents for: Pt has been working with moldy wood last week. Specifically he sanded the would 1st and then spray pain that. He did not use respiratory protection. He has a history of getting exposures and then gets tightness in his chest. He states he has SOB now and has been Burping weirdly and he was taking gas-x and its not helping. Review of Systems Constitutional: Negative for chills and fever. HENT: Negative for sore throat and trouble swallowing. Respiratory: Positive for shortness of breath and wheezing. Negative for cough. Cardiovascular: Negative for chest pain and palpitations. Gastrointestinal: Negative for abdominal pain. Genitourinary: Negative for frequency and urgency. Objective The patient is pleasant and in no acute distress. The neck is supple and trachea is midline. No masses are appreciated. The heart is regular rate and rhythm without S3, S4. No murmur. The patient has normal respiratory pattern. The breath sounds are Diffusely decreased but symmetrical without evidence of rhonchi or rales. No wheezing. The skin is warm and dry. The lower extremities have trace edema. The patient has good eye contact and speech is clear. Appropriate affect. Visit Vitals Pulse 96 Ht 5' 10 Wt 174 lb SpO2 99% BMI 24.97 kg/m Smoking Status Never BSA 1.97 m Allergies Allergen Reactions Clarithromycin Nausea Only Famotidine Other Reaction(s): fatigue Methocarbamol Other Current Outpatient Medications on File Prior to Visit Medication Sig Dispense Refill aspirin (ASPIR) 81 MG EC tablet Take 81 mg by mouth in the morning. atorvastatin (Lipitor) 40 MG tablet Take 40 mg by mouth at bedtime. [facility] Senna Plus 8.6-50 MG tablet Take 2 tablets by mouth Daily as needed. ketorolac (Acular) 0.5 % ophthalmic solution Administer 1 drop into affected eye(s) in the morning and 1 drop before bedtime. 5 mL 1 latanoprost (Xalatan) 0.005 % ophthalmic solution Administer 1 drop into both eyes at bedtime 2.5 mL 6 Multiple Vitamins-Minerals (ONE DAILY ADULTS 50+ PO) 1 (one) time each day at the same time. ofloxacin (Ocuflox) 0.3 % ophthalmic solution Administer 1 drop into the right eye 5 (five) times a day for 1 day Starting 1 day before surgery, continue after surgery as directed 5 mL 1 prednisoLONE acetate (Pred-Forte) 1 % ophthalmic suspension Administer 1 drop into both eyes in the morning and 1 drop at noon and 1 drop in the evening and 1 drop before bedtime. Do all this for 14 days. 5 mL 1 Probiotic Product (PROBIOTIC 10 ULTRA STRENGTH PO) Take 1 capsule by mouth in the morning. No current facility-administered medications on file prior to visit. 1. Wood dust asthma (CMS/HCC) Recurrent problem. We have discussed the importance of respiratory protection when around significant Saw dust. And in his case he also had moldy saw dust. I suspect he is having some mild bronchospasm that is causing the tightness. This could be allergic in nature also. We have mutually agreed to a short course of prednisone. There was no wheezing or evidence of respiratory distress today. - predniSONE (Deltasone) 20 MG tablet; Take 2 tablets (40 mg) by mouth Daily for 5 days Dispense: 10 tablet; Refill: 0 2. Mold exposure As above documented in this encounter [facility] 08-08-2024 History of Presen t illness Narrative Images from the original note were not included. Assessment/Plan Diagnoses and all orders for this visit: Age-related nuclear cataract of both eyes - Visually Significant Cataract, OU: I discussed the risks, benefits, alternatives, and expectations of cataract surgery. A complete ophthalmic exam was performed and it was determined that the cataracts were a primary source of vision decline, affecting activities of daily living, necessitating removal. Limited vision post-surgery may occur with pre-existing conditions affecting other areas of the eye or the brain was explained and the patient displayed an understanding. The overall objective is to improve ADLs, not eliminate glasses or restore vision to 20/20. Tests were reviewed - the different lens options were explained including the [id number] fees for any upgrades. Intraocular lens (IOL) selection may be altered either prior to or during the procedure based on the doctor's discretion including reverting to a traditional intraocular lens (IOL). They understood that there will exist the potential of glasses prescription need post surgery for near, distance or possibly both. The patient stated a full understanding and a desire to proceed with the procedure. The patient received cataract measurements and had any additional questions answered. - A complete exam was performed including a physical exam: General: AAOx3 and NAD, Lungs: Clear, Heart: RRR, Abdomen: S/NT/ND, Extremities: no pitting edema. - Coordination of care will be shared with Dr. Stubbs. Cataract Surgery for OD will take place - and OS - . Primary open angle glaucoma (POAG) of both eyes, mild stage (CMS/HCC) - Primary open angle glaucoma OU - Importance of taking medications as prescribed was stressed. Patient was advised to report any inability or unwillingness to take medications or if cost is a concern. Patient must report any side effects that may develop. Patient must report any change in systemic medications as they may interact or interfere with their glaucoma medications. Patient will be dilated at least on an annual basis for optic nerve evaluation and will likely have an automated visual field examination at least once a year. It was explained to the patient that they might require additional treatment for intraocular pressure control such as laser therapy or surgical intervention. - Start Latanoprost both eyes (OU) at bedtime. documented in this encounter [facility] 11-30-2023 Evaluation note Encounter Date Diagnosis Assessment Notes Nov, Lumbosacral spondylosis without myelopathy (ICD-10 - M47.817) 78 year old male presents with complaints of low back pain. He notes he completed physical therapy recently which he feels resolved his pain. He continues a home exercise program based on exercises learned at physical therapy. He denies any significant pain today. Prior to examining the patient, I independently reviewed office notes from referring provider. Anatomy of spine as well as different treatment options were discussed in detail with patient in regards to patients condition. If his pain returns, we can consider interventional options in the future. Overall, patient appears to be doing well at this time. He is encouraged to continue with HEP as he feels this is providing an element of relief. I recommend he continue activities as tolerated. He is counseled against any excessive bending or twisting. He is advised to call the office if his pain returns. Nov, Other chronic pain (ICD-10 - G89.29) Stable. Follow up as needed. Nov, Other This documentation is being amended on 12/05/23 due to an internal data corruption event that occurred on 11/30/23. This data corruption event was NOT the result of any breach, fraud, or malicious third part actors and no personal patient information was compromised. Medical decision making shows a new problem to me with further workup planned or suggested with the potential for extensive treatment options that were considered with the most applicable given this patient's situation as noted above. Treatment options considered include a combination of physical therapy approaches, pharmacologic management, and interventional procedures. Those most applicable to the patient were discussed at this time. Risk of complications and/or morbidity and mortality is high given that acute and chronic pain poses a threat to life and bodily function if undertreated, poorly treated or with failure to maintain adequate treatment and timely followup. Given the serious and fluctuating nature of pain with extensive consideration for whenever pain changes, there always remains the possibility of prolonged functional impairment requiring constant patient reassessment and high-level medical decision making. The amount and complexity of data reviewed is high given that patient labs, radiology reports, and other test were obtained, reviewed and summarized as applicable from the physician portal and/or outside medical records. Pertinent positive and negative findings were considered in medical decision-making. W4 Other [id number] History of Present illness Narrative* Dov Maza MD - 10/19/2023 9:00 AM EST Patient is new to this provider. Previously seen by Dr. Lorenzana and then by Edie Pryor NP. Subjective : Interval review of systems is negative for chest discomfort pressure tightness heaviness palpitations lightheadedness orthopnea paroxysmal nocturnal dyspnea dependent edema or claudication TIA or CVAtype symptoms or bleeding diathesis Very active independent [...] ADLs. 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 He [...] Problem List Diagnosis Date Noted Atherosclerosis of [place] coronary artery without angina pectoris 10/18/2023 BPH (benign prostatic hyperplasia) 10/18/2023 History of [place] (myocardial infarction) 10/18/2023 Hyperlipidemia 10/18/2023 Assessment: 1. Healthy functional 78-year-old 2. [place] hypertension 3.Lipid profile from 2021 was excellent Recommendations: 1. Patient can continue regular follow-up with primary care and see us on an as- needed basis. 2. I told him that if he were to develop any symptoms of chest discomfort pressure tightness heaviness or shortness of breath he should seek prompt medical attention. Thank you for allowing us to participate in patient's care, please do not hesitate to call if further questions arise, sincerely, Dov Maza MD [facility] Follow up : prn Provider Attestation - Scribe documentation All medical record entries made by the Scribe were at my direction and personally dictated by me. Ihave reviewed the chart and agree that the record accurately reflects my personal performance of the history, physical exam, discussion and plan. Dov Maza MD Scribe Attestation By signing my name below, I, Shena Eduardo SCOTT , Scribe attest that this documentation has been prepared under the direction and in the presence of Dov Maza MD. [facility] Work Phone: [phone]) 207-826712-14-2023 Instructions* Patient Instructions* Shena Hermosillo LPN - 10/19/2023 9:00 AM [...] Follow up as needed. [facility] Work Phone: 1(825) 330-108802-06-2023 Hospital Discharge instructions Patient Education 12/12/2022 08:36:02 Kidney Stones, Bhoo-mx-[id number] Kidney Stones Kidney stones are rock-like masses [...] Follow these instructions at home: Medicines Take ayry-fib-rvtsunq and prescription medicines only as told by [...] 04/10/2009 Document Revised: 03/10/2020 Document Reviewed: 03/10/2020 Elsevier Patient Education 2020 [employer] Follow Up Care 09/20/2021 09:24:32 With:MAGDI MAHONEY, Cj Dwyer, URL Address: [facility] [address] , [place] [address]- [phone] When:12/12/2023 Comments:KUB [facility] [place] evaluation + Plan note Future Appointments Appointment Date:12/18/2023 09:45:00 AM Scheduled Provider:Cj LICONA MD Location:[facility] Appointment Type:URO Office Visit [facility] evaluation noteNo assessment information available [facility] Work Phone: Evaluation note* Diagnosis Atherosclerosis of [place] coronary artery of [place] heart without angina pectoris Mixed hyperlipidemia Benign prostatic hyperplasia, unspecified whether lower urinary tract symptoms present Essential hypertension Unspecified essential hypertension documented in this encounter [facility] Work Phone: Evaluation note* Diagnosis Age-related nuclear cataract of both eyes- Primary Primary open angle glaucoma (POAG) of both eyes, mild stage (CMS/HCC) [facility] Diagnosis 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 [facility] Diagnosis Mixed hyperlipidemia (CMS/HCC)- Primary Mixed hyperlipidemia Chronic fatigue Other malaise and fatigue Screening for diabetes mellitus (DM) Screening for diabetes mellitus Iron deficiency anemia due to chronic blood loss Iron deficiency anemia secondary to blood loss (chronic) [facility] N[facility]ative - Reported* Type Description Date Medical History hyperlipidemia Surgical History appendectomy 1964 Surgical History hernia repair 2000 Surgical History carpal tunnel release 2004 Surgical History neck surgery x 3 [id number] W4 Other History of Present illness Narrative* The patient states he has been generally doing well since the last visit. Comorbid Illnesses: hyperlipidemia. * Symptoms: denies chest pain at rest, denies exertional chest pain, denies dyspnea, denies fatigue, stable exercise intolerance, denies palpitations, denies edema, denies orthopnea, denies claudication, denies dizziness and denies orthostatic dizziness. * Associated symptoms: no syncope. * His symptoms do not limit his activities. * Disease Monitoring: The patient has had a stable weight. * Medications: the patient is adherent with his medication regimen. He denies medication side effects. [facility] DO Work Phone: Hospital course Narrative No data available for this section [facility] Hospital Discharge instructions Additional Instructions Be sure [...] can cause problems such as ulcers or bleeding.[facility] Work Phone: Progress note No data available for this section [facility] Family History No Family History Records FoundUnknown Family Member Name Dates Details Family history [...] of kidney Unknown Summary Purpose Advance Directives No Advanced Directives Records Found Advance Directive Response Recorded Date/ Time Advance Directives No July 11:11am Documents on File Type Date Recorded 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 He has no stairs at [...] section and content) DATE CREATED AUTHOR 03/06/2022 [facility] dical Specialist DATE CREATED AUTHOR AUTHOR'S ORGANIZ ATION 10/15/2022 [facility] DATE CREATED AUTHOR AUTHOR'S ORGANIZ ATION 10/26/2022 [facility] DATE CREATED AUTHOR AUTHOR'S ORGANIZ ATION 10/26/2022 [employer] DATE CREATED AUTHOR AUTHOR'S ORGANIZ ATION 11/11/[address] [facility] DATE CREATED AUTHOR AUTHOR'S ORGANIZ ATION 08/13/2024 [facility] dical Specialists EPIC DATE CREATED AUTHOR AUTHOR'S ORGANIZ ATION 08/26/2024 [facility] DATE CREATED AUTHOR AUTHOR'S ORGANIZ ATION 09/27/2024 [facility] Patient Care team informatio n (unrecognized section and content) Team Status: Active Member Role Status Dates Grady Romeo MD Primary Care Provider Active Team Status: Inactive Member Role Status Dates Grady Romeo MD Primary Care Provider Active Ender Aguilar Jr, MD Emergency Provider Active Extruding Machine Operator Relationship Specialty Start Date End Date Grady Romeo MD [address] [phone] PCP - General 11/06/99 Team Status: Inactive Member Role Status Dates Grady Romeo MD Primary Care Provider, Attending Provider Active Extruding Machine Operator Relationship Specialty Start Date End Date Grady Romeo MD [address] [place] [address] (Fax) PCP - [employer] 11/06/20 Grady Romeo MD [address] [place] [address] (Fax) PCP - General Family Medicine 03/14/23 Cj Licona MD [address] [place] [address] Referring Physician Urology 10/17/23 [place] [address] [place] [phone] Referring Physician Cardiology 10/17/23 Extruding Machine Operator Relationship Specialty Start Date End Date Grady Romeo MD [address] [facility] [place] [address] (Fax) PCP - [employer] 11/06/20 Grady Romeo MD [address] [facility] [address] (Fax) PCP - General Family Medicine 03/14/23 Cj Licona MD [address] [place] [address] Referring Physician Urology 10/17/23 [place] [address] [place] [address] Referring Physician Cardiology 10/17/23 Extruding Machine Operator Relationship Specialty Start Date End Date Grady Romeo MD [address] [facility] [address] (Fax) PCP - [employer] 11/06/20 Grady Romeo MD [address] [facility] [address] (Fax) PCP - General Family Medicine 03/14/23 Cj Licona MD [address] [place] [address] Referring Physician Urology 10/17/23 [place] [address] [place] [phone] Referring Physician Cardiology 10/17/23 Extruding Machine Operator Relationship Specialty Start Date End Date Grady Romeo MD [address] [place] [address] (Fax) PCP - [employer] 11/06/20 Grady Romeo MD [address] [place] [address] (Fax) PCP - General Family Medicine 03/14/23 Cj Licona MD [address] [place] [address] Referring Physician Urology 10/17/23 [place] [address] [place] [address] Referring Physician Cardiology 10/17/23 Extruding Machine Operator Relationship Specialty Start Date End Date Grady Romeo MD [address] [place] [address] (Fax) PCP - [employer] 11/06/20 Grady Romeo MD [address] [place] [address] (Fax) PCP - General Family Medicine 03/14/23 Cj Licona MD [address] [place] [address] Referring Physician Urology 10/17/23 [place] [address] [place] [phone] Referring Physician Cardiology 10/17/23 Extruding Machine Operator Relationship Specialty Start Date End Date Grady Romeo MD [address] [place] [address] (Fax) PCP - [employer] 11/06/20 Grady Romeo MD [address] [address] PCP - General Family Medicine 03/14/23 Cj Licona MD [address] [place] [address] Referring Physician Urology 10/17/23 [place] [address] [place] [address] Referring Physician Cardiology 10/17/23 Goals (unrecognized section and content) Goals may be documented in a n alternate section Reason for Visit (unrecogniz ed section and content) Reason Comments Annual Exam Reason Comments Blurred Vision Reason Comments Hyperlipidemia FOR RECORDS PERTAINING TO PATIENTS WHO ARE [...] BE BASED ON THE PRIMARY CLINICAL RECORDS. [facility]. provides no warranty or guarantee of the accuracy or completeness of information in this document.
[2024-10-08 08:22] LABS: Alanine Aminotransferase 30 U/L (16-63); Albumin Globulin Ratio 1.1; Albumin Level 3.6 g/dL (3.4-5.0); Alkaline Phosphatase 68 U/L (46-116); Anion Gap 8.8; Aspartate Amino Transferase 21 U/L (15-37); BUN Creatinine Ratio 14.6; Calcium 9.3 mg/dL (8.5-10.1); Carbon Dioxide 32.1 mmol/L (21.0-32.0); Chloride 101 mmol/L (98-107); Chol HDL Ratio 2.2; Cholesterol 127 mg/dL (<=200); Estimated GFR (African America >60 (>=60 mL/min/1.73m^2); Estimated GFR (Non-African Ame >60 (>=60 mL/min/1.73m^2); Globulin 3.3 g/dL; Glucose 97 mg/dL (74-106); HDL Cholesterol 58 mg/dL (40-60); LDL Cholesterol Calculated 53.6 mg/dL; Potassium 3.9 mmol/L (3.5-5.1); Sodium 138 mmol/L (136-145); Total Protein 6.9 g/dL (6.4-8.2); Triglycerides 77 mg/dL (<=150); VLDL CHOLESTEROL 15.4 mg/dL
== END 2024-10-08 07:46 | disposition home or self-care (01) ==
PROVIDERS: PCP Family Medicine; Visit Provider Family Medicine
DX: E78.2 Mixed hyperlipidemia (principal); R53.82 Chronic fatigue, unspecified; D50.0 Iron deficiency anemia secondary to blood loss (chronic); Z13.1 Encounter for screening for diabetes mellitus
CPT/HCPCS: 36415; 80053; 80061; 85025

== ENCOUNTER 2024-10-08 07:50 | Outpatient (OUT) | payer MEDICARE, SELFPAY ==
--- NOTE | 2024-10-08 08:02 | XR_ITS ---
The [address] [address] Patient Name: MARYAN SOLIS MRN: [id number] date: 1945 Sex: M Assigned Patient Location: [facility] Current Patient Location: Accession/Order Number: [id number] Exam Date: 10/08/2024 08:09 Report Date: 10/09/2024 07:15 At the request of: SUPRIYA AWAD Procedure: XR abdomen 1V EXAMINATION: XR abdomen 1V HISTORY: Kidney stone COMPARISON: 12/08/2023 FINDINGS: KIDNEY/URETER - RIGHT: Stable 7 mm right nephrolith KIDNEY/URETER - LEFT: No visible renal or ureteral calcifications. PELVIS: No visible ureteral calcifications. Any visible calcifications favor phleboliths. BOWEL: No abnormal dilation or deviation. BONES: No acute abnormality. OTHER: Extensive surgical anchors in the pelvis. No abnormal gaseous collections. XR/XR abdomen 1V IMPRESSION: Stable right nephrolith Electronically authenticated by: KIM FRANK Date: 10/09/2024 07:15
--- OUTSIDE RECORDS SUMMARY | 2024-10-08 08:12 | XMS_ITS | CCD ---
Author Organization [facility] Care Team Providers Care Game Attendant Name Role Phone Grady Romeo Unavailable Unavailable [...] able MD Grady Romeo Primary Care Provider [phone] MD Ender Aguilar Jr Emergency Provider Grady [...] ROMEO Attending Unavailable Grady Romeo MD Unavailable Grady Romeo MD Primary Care Provider Cj Licona MD Unavailable [phone] Dov Maza MD Unavailable DOV MAZA Attending Unavailable GRADY ROMEO Primary Care Unavailable Grady Romeo MD Unavailable Grady Romeo MD Primary Care Provider [phone] TAVO AWAD Attending UnavailTAVO Choudhury Attending Unavailab nunes Allergies Allergy Classification Reported Allergen(s) Allergy Type Date of Onset Reaction(s) Facility (7 sources) Clarithromycin; Translations: [clarithromycin] Drug Allergy 3 Unknown [facility] (1 source) Clarithromycin Drug Allergy [facility] Repository (1 source) Finasteride Drug Allergy [facility] (1 source) Naproxen Drug Allergy [facility] (1 source) Erythromycin Drug Allergy 3 [facility] Repository (9 sources) Clarithromycin Allergy to substance 3 Nausea Only [facility] Healthcare (9 sources) Famotidine Allergy to substance 3 [facility] Healthcare (9 sources) Methocarbamol Drug Allergy 3 Other [facility] Healthcare Medications Current Medications Medication Drug Class(es) [...] tablet 1 08/27/2024 02/23/2025 Active bifidobacterium animalis [id number] unt / lactobacillus acidophilus [id number] unt oral capsule (4 sources) L. acidophilus/Bifid. animalis 32 billion cell capsule Take by mouth. 0 Active Probiotic CAPS 1 00 mg daily Quantity: 0 Refills: 0 Ordered: 08-Oct-2021 DO Active docusate sodium 50 mg / sennosides, fdc 8.6 mg oral tablet (11 sources) Start: [...] OCT panelOrdered By: Janna Valadez on 08-08-2024 [employer] Radiology Study observation (narrative) [facility] [email or web address] US Eye+Orbit - bilateralon 1 Diagnosis: Cataract both eyes (OU) Testing Indication: Performed for preop measurements in the determination of an intraocular lens (IOL) for both eyes (OU) Test Reliability: Good quality both eyes (OU) Interpretation: Good measurements for intraocular lens (IOL) calculation purposes. Calculation made for both eyes (OU). [facility] [employer] Radiology Study observation (narrative) [facility] [email or web address] Screenson 12-13-2023 Screens [id number] 20 [id number] 0TIFF Normal [facility] Ambulatory Visit Summaryon 0 12-12-2023 Ambulatory Visit [...] ELE AWAD PA-C Where: [facility] Patient Educationon 12-12-19 Patient Education Nephrology Dietary [...] ? 8 oz (237 mL) of milk, vvzosuy-xxrtdmwgwpfr-y airy milk, and calcium-fortifiedfruit juice. Calcium-fortified means [...] Spinach (cooked), rhubarb, beets, sweet potatoes, and Portuguese chard. ? Peanuts. ? Potato chips, wallisian fries, and baked potatoes with skin on. ? Nuts and nut products. ? Chocolate. ? If you regularly take a diuretic medicine, make sure to eat at least 1 or 2 servings of fruits or vegetables that are high in potassium each day. These include: ? Avocado. ? Banana. ? [place], prune, carrot, or tomato juice. ? Baked [...] fish oil, or vitamin B6. ? Take zric-ksk-mezjzcp and prescription medicines only as told by your health care provider. These include supplements. What foods sh (more content not included)... Normal [facility] Urology Office/Clinic Noteon 12-12-2023 Urology Office/Clinic Note [...] Contact Information RITESH VO, ELE Abrams, URL [address] [place] [place] [address] Additional Instructions: 1 year w/ KUB Patient [...] Bedtime omeprazole, Oral, Daily, Not taking One-A-Day [employer]'s [employer] Formula, Oral, Daily Allergies clarithromycin (Nervousness) Social [...] Protein Urine Dipstick: Negative (12/12/23 08:52:00) Specific [place] Urine Dipstick: 1.020 (12/12/23 08:52:00) Urine Appearance Urine Dipstick: Clear (12/12/23 08:52:00) Urine Color Urine Dipstick: Yellow (12/12/23 08:52:00) Urobilinogen Urine Dipstick: Normal 0.2-1 EU/dl (12/12/23 08:52:00) pH Urine Dipstick: 6.5 (12/12/23 08:52:00) Normal [facility] Comment on above: Result Comment: Elec tronically Signed By: ELE AWAD PA-C\.br\Date and Time Signed: 12/12/23 09:16 EST\.br\Electronically Co-Signed By: Paulette Kwon\.br\Date and Time Co-Signed: 12/12/23 09:11 EST RAD - MISCon 12-09-2023 RAD - MISC [id number] 20 [id number]#[id number] 0TIFF Normal [facility] XR lumbar spine AP/LAT/FLX/E XTon 11-10-2023 XR lumbar spine AP/LAT/FLX/EXT [facility] [place] [address] XRay Report Signed Patient: Farrukh Babb MR#: [id number] : 1945 Acct:[id number] Age/Sex: 78 / M ADM Date: 11/10/23 Loc: XD Room: Type: [facility] Attending Dr: Grady Romeo MD Copies to: [...] Bg Gurrola M.D.11/10/2023 9:29 PM Dictation Location: [facility] Transcribed By: [facility] 11/10/232128 Dictated By: Bg Gurrola DO 11/10/232126 Signed By: 11/10/232128 Normal [facility] XR hip RT min 2V(w/wo pelvis )*on 09-11-2023 XR hip RT min 2V(w/wo pelvis)* [facility] [place] [address] [place] [address] XRay Report Signed Patient: Farrukh Babb MR#: [id number] : 1945 Acct:[id number] Age/Sex: 78 / M ADM Date: 09/11/23 Loc: ER Room: Type: [facility] ER Attending Dr: Copies to: Ender [...] Micheal Jett M.D.09/11/2023 11:03 AM Dictation Location: [facility]12 Transcribed By: KINA 09/11/231102 Dictated By: Micheal Jett II, MD 09/11/23 Signed By: 09/11/23 110 [facility] XR lumbar spine 2-3V*on XR lumbar spine 2-3V* [facility] [place] [address] [place] [address] XRay Report Signed Patient: Farrukh Babb MR#: [id number] : 1945 Acct:[id number] Age/Sex: 78 / M ADM Date: 09/11/23 Loc: ER Room: Type: [facility] ER Attending Dr: Copies to: Ender [...] Micheal Jett M.D.09/11/2023 11:04 AM Dictation Location: [place] [address] Transcribed By: [facility] 09/11/23 110 Dictated By: Micheal Jett II, MD 09/11/23 110 Signed By: 09/11/231103 [facility] Office Visit (Cardiology)on 10-19-2022 Follow-up visit Diagnoses/Problems Assessed Normal coronary angiogram (V72.85) 2007 cardiac cath with angiographically normal coronaries Current daily activity greater than 4 METS without concerning symptoms Normal cardiac ejection fraction 2007 cardiac cath LVEF 50% Hyperlipidemia (272.4) (E78.5) High intensity statin Managed by [facility] October 2022 HDL 53, LDL 41 Overweight with body mass index (BMI) of 25 to 25.9 in adult (278.02,V85.21) (E66.3,Z68.25) Reviewed the merits of healthy lifestyle choices on overall cardiovascular health. Orders Hyperlipidemia Renew: Atorvastatin Calcium 40 MG Oral Tablet; TAKE 1 TABLET DAILY Hyperlipidemia, Normal cardiac ejection fraction, Normal coronary angiogram ALT - Alanine Aminotransferase, Serum; Status:Active; Requested for:[id number]; AST; Status:Active; Requested for:46Thq5199; Basic Metabolic Panel; Status:Active; Requested for:90Njb0755; Lipid Panel; Status:Active; Requested for:73Dtx3247; Overweight with body mass index (BMI) of 25 to 25.9 in adult Healthy Weight Tips; Status:Complete; Done: [id number] Patient Instructions Please bring all medicines, vitamins, [...] ADLs. 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 He has no stairs at [...] Delayed ReleaseTAKE 1 CAPSULE TWICE DAILY. Probiotic [id number] mg daily Allergies Medication clarithromycin Allergy; Recorded By: Amanda Watkins; 09/23/2021 10:22:16 AM Social History Problems Alcohol use (V49.89) (Z78.9) Caffeine use (V49.89) (Z78.9) 1 cup of coffee Never a smoker No illicit drug use Review of Systems Constitutional: not feeling tired. Cardiovascular: no chest pain, no palpitations and no low (more content not included)... Normal [facility] Tobacco Screening.on Adult depression screening assessment No [facility] 250 DO Work Phone: Fall risk assessment a) No falls within the last year [facility] 250 DO Work Phone: Tobacco use status [facility] b) No [facility] 250 DO Work Phone: LIPID PROFILEon 10-10-2022 CHOL-HDL RATIO NORM SEE BELOW Normal [facility] Comment on above: Result Comment: 3.3 - 4.4 LOW RISK 4.4 - 7.1 AVERAGE RISK 7.1 - 11.0 MODERATE RISK >11.0 HIGH RISK Performed By: #### B MP, LIPID, AST, ALT #### [facility] [address] [address] [address] Marisa Curtis Cholesterol [Mass/Vol] 111 mg/dL Normal <=200 [facility] Comment on above: Performed By: #### B MP, LIPID, AST, ALT #### [facility] [address] [address] [address] Marisa Curits Cholesterol in HDL [Mass/Vol] 53 mg/dL Normal 40-60 [facility] Comment on above: Performed By: #### B MP, LIPID, AST, ALT #### [facility] [address] [address] [address] Marisa Curtis Cholesterol in LDL [Mass/Vol] 41.6 mg/dL Normal [facility] Comment on above: Performed By: #### B MP, LIPID, AST, ALT #### [facility] [address] [address] [address] Marisa Curtsi Cholesterol.total/ Cholesterol in HDL [Mass ratio] 2.1 {ratio} Normal [facility] Comment on above: Performed By: #### B MP, LIPID, AST, ALT #### [facility] [address] [address] [address] Marisa Curtis HDL NORMAL > or = 60 mg/dl - LO W CARDIOVASCULAR RISK <40 mg/dl - HIGH CARDIOVASCULAR RISK Normal [facility] Comment on above: Performed By: #### B MP, LIPID, AST, ALT #### [facility] [address] [address] [address] Marisa Curtis LDL CALC NORMAL SEE BELOW Normal [facility] Comment on above: Result Comment: <100 mg/dl OPTIMAL 100 - 129 mg/dl NEAR OR ABOVE OPTIMAL 130 - 159 mg/dl BORDERLINE HIGH 160 - 189 mg/dl HIGH >190 mg/dl VERY HIGH Performed By: #### B MP, LIPID, AST, ALT #### [facility] [address] [address] [address] Marisa Curtis Triglyceride [Mass/Vol] 82 mg/dL Normal <=150 [facility] Comment on above: Performed By: #### B MP, LIPID, AST, ALT #### [facility] [address] [address] [address] Marisa Curtis VLDL CALC 16.4 mg/dL Normal [facility] Comment on above: Performed By: #### B MP, LIPID, AST, ALT #### [facility] [address] [address] [address] Marisa Curtis PROF CHEM 8 (BAS METB)on Anion gap [Moles/Vol] 10.1 mmol/L Normal [facility] Comment on above: Performed By: #### B MP, LIPID, AST, ALT #### [facility] [address] [address] [address] Marisa Curtis Calcium [Mass/Vol] 9.1 mg/dL Normal 8.5-10.1 [facility] Comment on above: Performed By: #### B MP, LIPID, AST, ALT #### [facility] [address] [address] [address] Marisa Curtis Chloride [Moles/Vol] 104 mmol/L Normal 98-107 [facility] Comment on above: Performed By: #### B MP, LIPID, AST, ALT #### [facility] [address] [address] [address] Marisa Curtis CO2 [Moles/Vol] 30.9 mmol/L Normal 21.0-32.0 [facility] Comment on above: Performed By: #### B MP, LIPID, AST, ALT #### [facility] [address] [address] [address] Marisa Curtis Creatinine [Mass/Vol] 0.92 mg/dL Normal 0.70-1.30 [facility] Comment on above: Performed By: #### B MP, LIPID, AST, ALT #### [facility] [address] [place] [address] Dr. Marisa Curtis EGFR-AF MONGOLIAN >60 Normal >=60 [facility] Comment on above: Performed By: #### B MP, LIPID, AST, ALT #### [facility] [address] [address] [address] Marisa Curtis EGFR-NON AF MONGOLIAN >60 Normal >=60 [facility] Comment on above: Performed By: #### B MP, LIPID, AST, ALT #### [facility] [address] [place] [address] Dr. Marisa Curtis Glucose [Mass/Vol] 100 mg/dL Normal 74-106 [facility] Comment on above: Performed By: #### B MP, LIPID, AST, ALT #### [facility] [address] [place] [address] Dr. Marisa Curtis Potassium [Moles/Vol] 4.0 mmol/L Normal 3.5-5.1 [facility] Comment on above: Performed By: #### B MP, LIPID, AST, ALT #### [facility] [address] [place] [address] Dr. Marisa Curtis Sodium [Moles/Vol] 141 mmol/L Normal 136-145 [facility] Comment on above: Performed By: #### B MP, LIPID, AST, ALT #### [facility] [address] [address] [address] Marisa Curtis Urea nitrogen [Mass/Vol] 19.0 mg/dL Critically high 7.0-18.0 [facility] Comment on above: Performed By: #### B MP, LIPID, AST, ALT #### [facility] [address] [place] [address] Dr. Marisa Curtis Urea nitrogen/Creatinin e [Mass ratio] 20.7 mg/mg Normal [facility] Comment on above: Performed By: #### B MP, LIPID, AST, ALT #### [facility] [address] [address] [address] Marisa Curtis SGOTon 10-10-2022 AST [Catalytic activity/Vol] 23 U/L Normal 15-37 [facility] Comment on above: Performed By: #### B MP, LIPID, AST, ALT #### [facility] [address] [place], [place] [address] Dr. Marisa [facility] 10-10-2022 ALT [Catalytic activity/Vol] 28 U/L Normal 16-63 [facility] Comment on above: Performed By: #### B MP, LIPID, AST, ALT #### [facility] [address] [place], [place] [address] Dr. Marisa Curtis XR KUB 1 VIEWon [...] by: KIM FRANK Date: 2022-09-12 17:32 Normal [facility] Basic Metabolic Panelon 04-2 Anion gap [Moles/Vol] 15 mmol/L Normal 12-20 [facility] Comment on above: Result Comment: Effe ctive 11/11/2019 reference range changed. Performed By: #### B RAYMUNDO LIPD #### [facility] [address] [place], [place] [id number] Calcium [Mass/Vol] 9.5 mg/dL Normal 8.6-10.2 [facility] Manager Comment on above: Performed By: #### B RAYMUNDO LIPD #### [facility] [address] [place], [place] [id number] Chloride [Moles/Vol] 105 mmol/L Normal 98-107 [facility] Comment on above: Performed By: #### B RAYMUNDO LIPD #### [facility] [address] [place], [place] [id number] CO2 [Moles/Vol] 24 mmol/L Normal 20-31 [facility] Specialist Comment on above: Performed By: #### RONALD Barahona MP #### [facility] [address] [place], [place] [id number] Creatinine [Mass/Vol] 0.8 mg/dL Normal 0.7-1.4 [facility] Specialist Comment on above: Performed By: #### [place] FONSECA LIPRashida #### [facility] [address] [place], [place] [id number] eGFRAA 119 mL/min/1.73m2 Normal >60 [facility] Comment on above: Performed By: #### RONALD Barahona MP #### [facility] [address] [place], [place] [id number] eGFRNAA 98 mL/min/1.73m2 Normal >60 [facility] Specialist Comment on above: Performed By: #### RONALD Barahona MP #### [facility] [address] [place], [place] [id number] Glucose [Mass/Vol] 100 mg/dL High 65-99 [facility] Specialist Comment on above: Result Comment: For FASTING Glucose --- ADA reference ranges: Normal 65-99 mg/dl Prediabetes 100-125 Diabetes >/= 126 Performed By: #### RONALD Barahona MP #### [facility] [address] [place], [place] [id number] Potassium [Moles/Vol] 4.2 mmol/L Normal 3.5-5.5 [facility] Comment on above: Performed By: #### RONALD Barahona MP #### [facility] [address] [place], [place] [id number] Sodium [Moles/Vol] 140 mmol/L Normal 135-146 [facility] Specialist Comment on above: Performed By: #### RONALD Barahona MP #### [facility] [address] [place], [place] [id number] Urea nitrogen [Mass/Vol] 17 mg/dL Normal 7-25 [facility] Specialist Comment on above: Performed By: #### RONALD Barahona MP #### [facility] [address] [place], [place] [id number] Lipid Panelon 03-03-2022 Cholesterol [Mass/Vol] 118 mg/dL Low 125-200 [facility] Specialist Comment on above: Result Comment: Low risk < 200mg/dL Borderline risk 201-239 mg/dl High risk > or equal to 240 Performed By: #### B RAYMUNDO LIPRashida #### [facility] [address] [place], [place] [id number] Cholesterol in HDL [Mass/Vol] 45 mg/dL Normal >40 [facility] Specialist Comment on above: Result Comment: High Cardiovascular Risk HDL <40 mg/dL Low Cardiovascular Risk HDL > or equal to 60 mg/dl Performed By: #### B RAYMUNDO LIPRashida #### [facility] [address] [place], [place] [id number] Cholesterol in LDL [Mass/Vol] 52 mg/dL Normal [facility] Comment on above: Result Comment: LDL ATP III CLASSIFICATION LDL less than 100 mg/dl Optimal LDL 100-129 mg/dl Near or above optimal LDL 130-159 Borderline high LDL 160-189 High LDL greater than 189 mg/dl Very High Performed By: #### B RAYMUNDO, LIPD #### [facility] [address] [place], [place] [id number] Cholesterol in VLDL [Mass/Vol] 21 mg/dL Normal [facility] Specialist Comment on above: Performed By: #### B RAYMUNDO LIPRashida #### [facility] [address] [place], [place] [id number] Cholesterol.total/ Cholesterol in HDL [Mass ratio] 3 {ratio} Normal [facility] Comment on above: Performed By: #### B RAYMUNDO, LIPD #### [facility] [address] [place], [place] [id number] Triglyceride [Mass/Vol] 106 mg/dL Normal 30-150 [facility] Specialist Comment on above: Result Comment: TRIG ATPIII CLASSIFICATIONS TRIG less than 150 mg/dl Normal TRIG 150-199 mg/dl Borderline High TRIG 200-500 mg/dl High TRIG greather than 500 mg/dl Very High Performed By: #### B RAYMUNDO, LIPD #### [facility] [address] [place], [place] [id number] US Carotid, Bilateralon 02-05 US Carotid, Bilateral [...] by Manoj Nogueira on 03/03/2022 0958 Normal [facility] Tobacco Screening.on 021 Fall risk assessment a) No falls within the last year [facility] 600 DO Work Phone: Tobacco use status [facility] b) No [facility] DO Work Phone: Vital Signs Date Time Vital Sign Value Performing Clinician Facility 08-27-2024 15:23-0400 Body height 177.8 cm Grady Romeo MD Work Phone: [facility] 08-27-2024 15:23-0400 Body mass index (BMI) [Ratio] 24.97 kg/m2 Grady Romeo MD Work Phone: [facility] 08-27-2024 15:23-0400 Body weight 78.93 kg Grady Romeo MD Work Phone: [facility] 08-12-2024 09:23-0400 Body height 177.8 cm Grady Romeo MD Work Phone: [facility] 08-12-2024 09:23-0400 Body mass index (BMI) [Ratio] 24.97 kg/m2 Grady Romeo MD Work Phone: [facility] 08-12-2024 09:23-0400 Body weight 78.93 kg Grady Romeo MD Work Phone: [facility] 08-12-2024 09:23-0400 Heart rate 96 /min Grady Romeo MD Work Phone: [facility] 08-12-2024 09:23-0400 SaO2% (BldA) [Mass fraction] 99 % Grady Romeo MD Work Phone: [facility] 10-19-2023 08:54-0500 Diastolic blood pressure 86 mm[Hg] Dov Maza MD Work Phone: [facility] 10-19-2023 08:54-0500 Systolic blood pressure 142 mm[Hg] Dov Maza MD Work Phone: [facility] 10-19-2023 08:41-0500 Body height 180.3 cm Dov Maza MD Work Phone: [facility] 10-19-2023 08:41-0500 Body mass index (BMI) [Ratio] 24.27 kg/m2 Dov Maza MD Work Phone: [facility] 10-19-2023 08:41-0500 Body weight 78.93 kg Dov Maza MD Work Phone: [facility] 10-19-2023 08:41-0500 Heart rate 86 /min Dov Maza MD Work Phone: [facility] 09-11-2023 02:57-0500 Diastolic blood pressure 90 mm[Hg] MD Grady Romeo Work Phone: [facility] 09-11-2023 02:57-0500 Heart rate 84 /min MD Grady Romeo Work Phone: [facility] 09-11-2023 02:57-0500 Respiratory rate 16 /min MD Grady Romeo Work Phone: [facility] 09-11-2023 02:57-0500 SaO2% (BldA) [Mass fraction] 97 % MD Grady Romeo Work Phone: [facility] 09-11-2023 02:57-0500 Systolic blood pressure 162 mm[Hg] MD Grady Romeo Work Phone: [facility] 09-11-2023 02:39-0500 Body temperature 98.1 [degF] MD Grady Romeo Work Phone: [facility] 09-11-2023 02:37-0500 Body height 180.34 cm MD Grady Romeo Work Phone: [facility] 09-11-2023 02:37-0500 Body weight 79.37 kg MD Grady Romeo Work Phone: [facility] 12-12-2022 12:40-0500 Blood Pressure Location Cj LICONA [facility] 12-12-2022 12:40-0500 Diastolic blood pressure 74 mm[Hg] Cjanand LICONA [facility] 12-12-2022 12:40-0500 Heart rate 70 /min Cj LICONA [facility] 12-12-2022 12:40-0500 Respiratory rate 16 /min Cj LICONA [facility] 12-12-2022 12:40-0500 Systolic blood pressure 132 mm[Hg] Cj LICONA [facility] 10-19-2022 09:25-0500 Body height 180.34 cm Grady Romeo Work Phone: [facility] 250 DO Work Phone: 10-19-2022 09:25-0500 Body mass index (BMI) [Ratio] 25.11 kg/m2 Grady Romeo Work Phone: [facility] 250 DO Work Phone: 10-19-2022 09:25-0500 Body surface area Derived from formula 2.02 m2 Grady Romeo Work Phone: [facility] 250 DO Work Phone: 10-19-2022 09:25-0500 Body weight 81.65 kg Grady Garciayer Work Phone: [facility] 250 DO Work Phone: 10-19-2022 09:25-0500 Diastolic blood pressure 78 mm[Hg] Grady Garciayer Work Phone: [facility] DO Work Phone: 10-19-2022 09:25-0500 Heart rate 76 /min Grady Garciayer Work Phone: [facility] DO Work Phone: 10-19-2022 09:25-0500 Systolic blood pressure 136 mm[Hg] Grady Garciayer Work Phone: [facility] 250 DO Work Phone: 10-08-2021 08:43-0500 Diastolic blood pressure 80 mm[Hg] rGady Garciayer Work Phone: [facility] 600 DO Work Phone: 10-08-2021 08:43-0500 Systolic blood pressure 138 mm[Hg] Grady Garciayer Work Phone: [facility] 600 DO Work Phone: 10-08-2021 08:31-0500 Body height 180.34 cm Grady Garciayer Work Phone: [facility] 600 DO Work Phone: 10-08-2021 08:31-0500 Body mass index (BMI) [Ratio] 26.08 kg/m2 Grady Romeo Work Phone: [facility] [employer] 600 DO Work Phone: 10-08-2021 08:31-0500 Body surface area Derived from formula 2.05 m2 Grady Romeo Work Phone: [facility] [employer] 600 DO Work Phone: 10-08-2021 08:31-0500 Body weight 84.82 kg Grady Romeo Work Phone: [facility] 600 DO Work Phone: 10-08-2021 08:31-0500 Diastolic blood pressure 101 mm[Hg] Grady Romeo Work Phone: [facility] [employer] 600 DO Work Phone: 10-08-2021 08:31-0500 Heart rate 90 /min Grady Romeo Work Phone: [facility] [employer] 600 DO Work Phone: 10-08-2021 08:31-0500 Systolic blood pressure 136 mm[Hg] Grady Romeo Work Phone: [facility] [employer] 600 DO Work Phone: Encounters Encounter Date Encounter Type Care Provider Facility Start: 12-17-2024 ambulatory TAVO AWAD Facility:[facility] Start: 08-27-2024 End: 08-27-2024 Office outpatient visit [...] 11-30-2023 End: 11-30-2023 ambulatory Chucho Sullivan Other Machine Talk[employer] Other Start: 11-30-2023 Office consultation new/estab patient 40 min Chucho Sullivan [facility] Start: 11-10-2023 End: 11-10-2023 ambulatory Grady Romeo Facility:[facility] Start: 11-10-2023 End: 11-10-2023 ambulatory MD Grady Romeo Work Phone: [facility] Work Phone: Start: 11-10-2023 End: 11-10-2023 Patient encounter procedure MD Grady Romeo Work Phone: [facility] [place] Work Phone: Start: 10-19-2023 End: 10-19-2023 Office outpatient visit 15 minutes Dov Maza MD Work Phone: [facility] Comment on above: Atherosclerosis of n [place] coronary artery of [place] heart without angina pectoris; Mixed hyperlipidemia; Benign prostatic hyperplasia, unspecified whether lower urinary tract symptoms present; Essential hypertension Start: 10-19-2023 End: 10-19-2023 ambulatory [facility] Start: 10-17-2023 End: 10-17-2023 ambulatory GRADY ROMEO Not Available Start: 09-19-2023 End: 09-19-2023 ambulatory GRADY ROMEO Not Available Start: 09-11-2023 End: 09-11-2023 Emergency department patient visit Ender Aguilar Jr Facility:[facility] Start: 09-11-2023 End: 09-11-2023 Emergency department patient visit MD Grady Romeo Work Phone: [facility] Work Phone: Start: 12-12-2022 End: 12-12-2022 Patient encounter procedure Cj LICONA [facility] Start: 10-19-2022 Office outpatient vi sit 15 minutes Grady Romeo Work Phone: [facility] 250 DO Work Phone: Start: 10-19-2022 ambulatory Grady Romeo Facility:[id number] Start: 10-10-2022 End: 10-11-2022 ambulatory EDIE NAGEL Facility:[facility] Start: 09-12-2022 End: 09-13-[address] CJ LICONA Facility:[facility] Start: 09-06-2022 Telephone encounter Grady ornelas Work Phone: [facility] 250 DO Work Phone: Start: 10-21-2021 Rx Renewal Grady Stephenson er Work Phone: [facility] 600 DO Work Phone: Imaging result normal Grady ornelas Work Phone: [facility] 250 DO Work Phone: Procedures Date Procedure [...] Visit [facility] 100 [address] [place] [id number] Grady Romeo MD [address] [facility] 100 [place] [address] (Fax) [facility] Start: 10-17-2024 Medicare Annual Well ness (AWV) Medicare Annual Wellness (AWV) [facility] Start: 09-23-2024 End: 09-23-2024 Patient encounter procedure 09/23/2024 9:05 AM EST Procedure Visit [facility] Kandy Longoria, DO [address] [place] [address] [facility] Start: 08-29-2024 End: 08-29-2024 Patient encounter procedure [facility] Start: 08-27-2024 End: 08-27-2024 Patient encounter procedure 08/27/2024 3:40 PM EDT Office Visit [facility] [address] [place] [id number] Grady Romeo MD [address] [place] [address] (Fax) Mixed hyperlipidemia (CMS/HCC) [facility] 100 Comment on above: Mixed hyperlipidemia (CMS/HCC) Start: 08-27-2024 End: 08-27-2025 CBC W Auto Differential panel - Blood CBC and differential Lab Routine Chronic fatigue Iron deficiency anemia due to chronic blood loss Expected: 08/27/2024 (Approximate), Expires: 08/27/2025 [facility] Work Phone: Comment on above: Expected: 08/27/2024 (Approximate), Expires: 08/27/2025 Start: 08-27-2024 End: 08-27-2025 Comprehensive metabolic 2000 panel - Serum or Plasma Comprehensive metabolic panel Lab Routine Chronic fatigue Screening for diabetes mellitus (DM) Expected: 08/27/2024 (Approximate), Expires: 08/27/2025 [facility] Comment on above: Expected: 08/27/2024 (Approximate), Expires: 08/27/2025 Start: 08-27-2024 End: 08-27-2025 Lipid 1996 panel - Serum or Plasma Lipid panel Lab Routine Mixed hyperlipidemia (CMS/HCC) Expected: 08/27/2024 (Approximate), Expires: 08/27/2025 [facility] Healthcare Comment on above: Expected: 08/27/2024 (Approximate), Expires: 08/27/2025 Start: 08-12-2024 End: 08-12-2024 Patient encounter procedure 08/12/2024 9:30 AM EDT Office Visit [facility] [address] [facility] [address] [place] [phone] Grady Romeo MD [address] [place] [address] Arrived [facility] 100 Comment on above: Arrived Start: 08-08-2024 End: 08-08-2024 Patient encounter procedure 08/08/2024 1:45 PM EDT Office Visit [facility] [address] [place] [phone] Kandy Longoria, DO [address] [place] [address] Arrived [facility] Comment on above: Arrived Start: 07-07-2024 Influenza vaccination Influenza Vacc ine (#1) [facility] Start: 10-19-2023 FUV, Provider: Dov Maza, Status: Pen, Time: 9:00 AM FUV, Provider: Dov Maza, Status: Pen, Time: 9:00 AM [facility] 250 DO Work Phone: Start: 09-11-2023 Plain X-ray of right hip XR hi p RT min 2V(w/wo pelvis)* [facility] Start: 09-11-2023 X-ray of lumbar spin e, two or three views XR lumbar spine 2-3V* [facility] Start: 09-11-2023 XR Hip - right 2 Views [facility] Start: 09-11-2023 XR Lumbar spine 2 or 3 Views [facility] Start: 10-19-2022 FUV, Provider: Edie Mathis, Status: Pen, Time: 9:30 AM FUV, Provider: Edie Mathis, Status: Pen, Time: 9:30 AM [facility] 250 DO Work Phone: Start: 10-18-2022 FUV, Provider: Rg Lorenzana, Status: Pen, Time: 8:30 AM FUV, Provider: Rg Lorenzana, Status: Pen, Time: 8:30 AM [facility] 600 DO Work Phone: Start: 06-26-2022 COVID-19 Vaccine (4 - Pfizer series) COVID-19 Vaccine (4 - Pfizer series) [facility] Start: 09-02-2016 DTaP/Tdap/Td Vaccine s (1 - Tdap) DTaP/Tdap/Td Vaccines (1 - Tdap) [facility] Start: 1995 Zoster Vaccines (1 of 2) Zoster Vacc kaya (1 of 2) [facility] Start: 1963 Diabetes mellitus screening Diabetes Screening [facility] Start: 1963 Hepatitis C screening Hepatitis C Sc reening [facility] Start: 1945 Lipid panel Lipid Panel [facility] Start: 1945 Medicare Annual Well ness Visit Medicare Annual Wellness Visit (AWV) [facility] Patient Education Radiculopathy Opioids for Short-Term Treatment of Pain ED [facility] Work Phone: Patient referral [facility] Work Phone: Immunizations Immunization Date Immunization Notes Care Provider Fa cili 07-12-2023 Influenza, Seasonal, Quadrivalent, Adjuvanted Kandy Longoria DO Work Phone: [facility] 07-12-2023 influenza virus vacc ine, unspecified formulation Kandy Longoria DO Work Phone: [facility] 08-22-2022 Fluad Quadrivalent 0 .5 ML Intramuscular Prefilled Syringe Grady Romeo Work Phone: [facility] 250 DO Work Phone: 05-01-2022 Comirnaty 30 MCG/0.3 ML Intramuscular Suspension Grady Romeo Work Phone: [facility] 250 DO Work Phone: 08-10-2021 Pfizer-BioNTech COVI D-19 Vacc 30 MCG/0.3ML Intramuscular Suspension Grady Romeo Work Phone: [facility] 07-22-2021 Fluzone High-Dose Quadrivalent 0.7 ML Intramuscular Suspension Prefilled Syringe Grady Romeo Work Phone: [facility] 600 DO Work Phone: 07-22-2021 influenza, injectabl e, quadrivalent, preservative free Dov Maza MD Work Phone: [facility] Work Phone: 01-01-2021 Pfizer-BioNTech COVI D-19 Vacc 30 MCG/0.3ML Intramuscular Suspension Grady Romeo Work Phone: [facility] 12-11-2020 Pfizer-BioNTech COVI D-19 Vacc 30 MCG/0.3ML Intramuscular Suspension Grady Romeo Work Phone: [facility] 08-06-2020 influenza virus vacc ine, unspecified formulation Cj LICONA [facility] 07-20-2020 Fluzone High-Dose Quadrivalent 0.7 ML Intramuscular Suspension Prefilled Syringe Grady Romeo Work Phone: [facility] 600 DO Work Phone: 07-20-2020 influenza, high dose seasonal, preservative-free Dov Maza MD Work Phone: [facility] Work Phone: 08-05-2019 influenza, high dose seasonal, preservative-free Grady Romeo Work Phone: [facility] 600 DO Work Phone: 08-05-2019 pneumococcal conjuga te vaccine, 13 valent Dov Maaz MD Work Phone: [facility] Work Phone: 08-05-2019 pneumococcal polysaccharide vaccine, 23 valent Grady Garciayer Work Phone: [facility] 09-06-2018 influenza, injectabl e, quadrivalent, preservative free Grady J [employer] Work Phone: [facility] 600 DO Work Phone: 08-06-2018 influenza, high dose seasonal, preservative-free Edadalid J Hemeyer Work Phone: [facility] 600 DO Work Phone: 08-06-2018 pneumococcal conjuga te vaccine, 13 valent Grady Garcia [employer] Work Phone: [facility] 600 DO Work Phone: 10-26-2017 influenza virus vacc ine, unspecified formulation Dov Maza MD Work Phone: [facility] Work Phone: 10-26-2017 influenza, injectabl e, quadrivalent, preservative free Edadalid [employer] Work Phone: [facility] 600 DO Work Phone: 09-01-2016 tetanus and diphther ia toxoids, adsorbed, preservative free, for adult use (5 Lf of tetanus toxoid and 2 Lf of diphtheria toxoid) [employer] Work Phone: [facility] 600 DO Work Phone: 08-04-2016 influenza virus vacc ine, unspecified formulation Dov Maza MD Work Phone: [facility] Work Phone: 08-04-2016 influenza, high dose seasonal, preservative-free Grady Garcia [employer] Work Phone: [facility] 600 DO Work Phone: 08-04-2016 pneumococcal conjuga te vaccine, 13 valent Dov Maza MD Work Phone: [facility] Work Phone: 08-04-2016 pneumococcal polysaccharide vaccine, 23 valent Grady Romeo Work Phone: [facility] 07-22-2015 pneumococcal conjuga te vaccine, 13 valent Grady Garciayer Work Phone: [facility] 600 DO Work Phone: 07-22-2015 pneumococcal polysaccharide vaccine, 23 valent Kandy Longoria DO Work Phone: [facility] Payers Date Payer Category Payer Self-pay [id number] 2021 Medicaid AETNA MEDICARE A DVANTAGE [id number] 2021 Medicare [id number] 1959 Medicare [id number] 1945 Unknown [id number] 1945 Unknown [id number] [id number] 1945 Unknown [id number] [id number] 1945 Unknown [id number] [id number] 1945 Unknown [id number] [id number] 1945 Unknown [id number] [id number] 1945 Unknown [id number] [id number] 1945 Unknown [id number] 1945 Unknown [id number] [id number] 1945 Unknown [id number] [id number] 1945 Unknown [id number] [id number] Medicare [id number] Unknown AETNA Unknown [id number] Unknown [id number] Social History Date Type Detail Facility Start: 10-17-2023 End: 10-19-2023 Never a smoker Never a smoker [place] [address] DO Work Phone: Comment on above: 1 cup of coffee; Start: 09-20-2021 End: 09-04-2023 Tobacco smoking status Never smoked tobacco (finding) [facility] Start: 10-17-2023 End: 10-19-2023 Sex Assigned At Male [facility] Start: 1945 Sex Assigned At Male [facility] Start: 09-04-2023 End: 10-18-2023 Tobacco use and exposure Smokeless tobacco non-user [facility] Work Phone: Start: 10-19-2023 Alcohol intake Current drinke r of alcohol (finding) [facility] Work Phone: Start: 1945 Sex Assigned At Not on file U [facility] Work Phone: Start: 10-09-2023 End: 10-19-2023 Exposure to SARS-CoV-2 (event) Not sure [facility] Start: 03-21-2024 End: 08-27-2024 Alcoholic beverage intake Ex-drinker (finding) [facility] Start: 09-04-2023 Alcohol Comment Caffeine intak e : 2-3 cups per day [facility] Medical Equipment Procedure Code Equipment Code Equipment Origin al Text Equipment Identifier Dates Capsule endoscopy, for patency of lumen evaluation Video capsule endoscopy system ()[id number] FDA Start: 09-02-2021 Functional Status Date Assessment Result Facility 12-12-2022 Functional Status N/A [facility] Clinical Notes 12-12-2022 to 08-27-2024 Grady [...] CBC and differential documented in this encounter [facility] 08-12-2024 History of Presen t illness Narrative [...] exposure As above documented in this encounter [facility] 08-08-2024 History of Presen t illness Narrative [...] different lens options were explained including the [id number] fees for any upgrades. Intraocular lens (IOL) [...] (OU) at bedtime. documented in this encounter [facility] 11-30-2023 Evaluation note Encounter Date Diagnosis Assessment [...] negative findings were considered in medical decision-making. Machine Talker Other [id number] History of Present illness Narrative* Dov Maza [...] ADLs. 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 He [...] Problem List Diagnosis Date Noted Atherosclerosis of [place] coronary artery without angina pectoris 10/18/2023 BPH (benign prostatic hyperplasia) 10/18/2023 History of [place] (myocardial infarction) 10/18/2023 Hyperlipidemia 10/18/2023 Assessment: 1. [...] further questions arise, sincerely, Dov Maza MD [facility] Follow up : prn Provider Attestation [...] of Dov Maza MD. [facility] Work Phone: 1(187) 725-287412-14-2023 Instructions* Patient Instructions* Shena Hermosillo LPN - [...] Follow up as needed. [facility] Work Phone: 1(391) 267-990002-06-2023 Hospital Discharge instructions Patient Education 12/12/2022 08:36:02 Kidney Stones, Mypo-ix-Zuac Kidney Stones Kidney stones are rock-like masses [...] Follow these instructions at home: Medicines Take rujg-yvx-onqsxny and prescription medicines only as told by [...] Document Reviewed: 03/10/2020 Elsevier Patient Education 2020 [employer] Follow Up Care 09/20/2021 09:24:32 With:MAGDI MAHONEY, Cj Dwyer, URL Address: [facility] [address] , [place] [phone] When:12/12/2023 Comments:KUB [facility] [place] evaluation + Plan note Future Appointments Appointment Date:12/18/2023 09:45:00 AM Scheduled Provider:Cj LICONA MD Location:[facility] Appointment Type:URO Office Visit [facility] evaluation noteNo assessment information available [facility] Work Phone: Evaluation note* Diagnosis Atherosclerosis of [place] coronary artery of [place] heart without angina pectoris Mixed hyperlipidemia Benign prostatic hyperplasia, unspecified whether lower urinary tract symptoms present Essential hypertension Unspecified essential hypertension documented in this encounter [facility] Work Phone: Evaluation note* Diagnosis Age-related nuclear [...] 2004 Surgical History neck surgery x 3 [phone] Machine Talker Other History of Present illness Narrative* The [...] available for this section [facility] Hospital Discharge instructions Additional Instructions Be [...] can cause problems such as ulcers or bleeding.[facility] Work Phone: [place] note No data available for this section [facility] Family History No Family History Records [...] Documents on File Type Date Recorded Patient Electronics Technician Expl anation Power of Tangled Yarn Spool Straightener 10/17/2023 9:31 AM 06- POA Advance Directives [...] ADLs. 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 He has no stairs at [...] section and content) DATE CREATED AUTHOR 03/06/2022 [facility] DATE CREATED AUTHOR AUTHOR'S ORGANIZ ATION 10/15/2022 [facility] DATE CREATED AUTHOR AUTHOR'S ORGANIZ ATION 10/26/2022 [facility] DATE CREATED AUTHOR AUTHOR'S ORGANIZ ATION 10/26/2022 [employer] DATE CREATED AUTHOR AUTHOR'S ORGANIZ ATION 11/11/2023 [facility] DATE CREATED AUTHOR AUTHOR'S ORGANIZ ATION 08/13/2024 [facility] EPIC DATE CREATED AUTHOR AUTHOR'S ORGANIZ ATION 08/26/2024 [facility] DATE CREATED AUTHOR AUTHOR'S ORGANIZ ATION 09/27/2024 [facility] Patient Care team informatio n (unrecognized section and content) Team Status: Active Member Role Status Dates Grady Romeo MD Primary Care Provider Active Team Status: Inactive Member Role Status Dates Grady Romeo MD Primary Care Provider Active Ender Aguilar Jr, MD Emergency Provider Active Game Attendant Relationship Specialty Start Date End Date Grady Romeo MD [address] [phone] PCP - General 11/06/99 Team Status: Inactive Member Role Status Dates Grady Romeo MD Primary Care Provider, Attending Provider Active Game Attendant Relationship Specialty Start Date End Date Grady Romeo MD [address] [place] [address] (Fax) PCP - [employer] 11/06/20 Grady Romeo MD [address] [place] [address] (Fax) PCP - General Family Medicine 03/14/23 Cj Licona MD [address] [place] [address] Referring Physician Urology 10/17/23 [place] [address] [place] [phone] Referring Physician Cardiology 10/17/23 Game Attendant Relationship Specialty Start Date End Date Grady Romeo MD [address] [facility] [place] [address] (Fax) PCP - [employer] 11/06/20 Grady Romeo MD [address] [place] [address] (Fax) PCP - General Family Medicine 03/14/23 Cj Licona MD [address] [place] [address] Referring Physician Urology 10/17/23 [place] [address] [place] [address] Referring Physician Cardiology 10/17/23 Game Attendant Relationship Specialty Start Date End Date Grady Romeo MD [address] [facility] [address] (Fax) PCP - [employer] 11/06/20 Grady Romeo MD [address] [place] [address] (Fax) PCP - General Family Medicine 03/14/23 Cj Licona MD [address] [place] [address] Referring Physician Urology 10/17/23 [place] [address] [place] [phone] Referring Physician Cardiology 10/17/23 Game Attendant Relationship Specialty Start Date End Date Grady Romeo MD [address] [place] [address] (Fax) PCP - [employer] 11/06/20 Grady Romeo MD [address] [place] [address] (Fax) PCP - General Family Medicine 03/14/23 Cj Licona MD [address] [place] [address] Referring Physician Urology 10/17/23 [place] [address] [place] [address] Referring Physician Cardiology 10/17/23 Game Attendant Relationship Specialty Start Date End Date Grady Romeo MD [address] [place] [address] (Fax) PCP - [employer] 11/06/20 Grady Romeo MD [address] [place] [address] (Fax) PCP - General Family Medicine 03/14/23 Cj Licona MD [address] [place] [address] Referring Physician Urology 10/17/23 [place] [address] [place] [phone] Referring Physician Cardiology 10/17/23 Game Attendant Relationship Specialty Start Date End Date Grady Romeo MD [address] [place] [address] (Fax) PCP - [employer] 11/06/20 Grady Romeo MD [address] [address] PCP - General Family Medicine 03/14/23 Cj Licona MD [address] [place] [address] Referring Physician Urology 10/17/23 [place] [address] [place] [address] Referring Physician Cardiology 10/17/23 Goals [...] BASED ON THE PRIMARY CLINICAL RECORDS. [facility]. provides no warranty or guarantee of the accuracy or completeness of information in this document.
== END 2024-10-08 07:51 | disposition home or self-care (01) ==
LOC: RAD 07:52
PROVIDERS: PCP Family Medicine; Visit Provider Physician Assistant
DX: N20.0 Calculus of kidney (principal)
CPT/HCPCS: 74018

== ENCOUNTER 2025-02-17 23:57 | Emergency (ER) | payer MEDICARE, SELFPAY ==
[2025-02-18] VITALS (29 sets, daily range): BP systolic 132–193; BP diastolic 80–108; PULSE 74–98; TEMP 36.8; O2SAT 91–100; BMI 24.4
--- OUTSIDE RECORDS SUMMARY | 2025-02-18 00:09 | XMS_ITS | CCD ---
Author Organization [facility] Care Team Providers Care Billing Customer Service Representative Name Role Phone Grady Romeo Unavailable Unavailable Unavailable DR MARCO A LICONA Admitting Unavailable MAGDI, DR STRICKLAND Attending [...] able MD Grady Romeo Primary Care Provider [phone] MD Ender Aguilar Jr Emergency Provider Grady Romeo MD Primary Care Provider Ender Aguilar Jr Admitting Unavailable Grady Romeo Primary Care Unavailable Ender Aguilar Jr Attending Unavailable Grady Romeo Attending Unavailable Grady Romeo Primary Care Unavailable Grady Romeo Admitting Unavailable MD Grady Romeo Attending Provider Chucho Sullivan Unavailable Grady Romeo MD Unavailable Grady Romeo MD Primary Care Provider Marco A Licona MD Unavailable Wen Maza MD Unavailable WEN MAZA Attending Unavailable GRADY ROMEO Primary Care Unavailable Grady Romeo MD Unavailable [phone] Grady Romeo MD Primary Care Provider Grady Romeo MD Unavailable Grady Romeo MD Primary Care Provider [phone] Kandy Longoria DO Unavailable SUPRIYA AWAD Attending Unavailable SUPRIYA AWAD Attending Unavailable GRADY ROMEO Attending Unavailable KANDY LONGORIA Attending Unavailable MAYANK STUBBS Referring Unavailable GRADY ROMEO Attending Unavailable GRADY ROMEO Attending Unavailable GRADY ROMEO Attending Unavailable MAY PEREA Attending Unavailable GRADY ROMEO Attending Unavailable MAY PEREA Attending Unavailable GRADY ROMEO Attending Unavailable MAY PEREA Attending Unavailable Allergies Allergy Classification Reported Allergen(s) Allergy Type Date of Onset Reaction(s) Facility (8 sources) Clarithromycin; Translations: [clarithromycin] Drug Allergy 3 Unknown [facility] (1 source) Clarithromycin Drug Allergy [facility] (1 source) Finasteride Drug Allergy [facility] (1 source) Naproxen Drug Allergy [facility] (1 source) Erythromycin Drug Allergy [facility] (20 sources) Clarithromycin Allergy to substance 3 Nausea Only [facility] (20 sources) Famotidine Allergy to substance 3 [facility] (20 sources) Methocarbamol Drug Allergy 3 Other [facility] Medications Current Medications Medication Drug Class(es) Dates Sig (Normalized) Sig (Original) acetaminophen 325 mg / HYDROcodone bitartrate 5 mg oral tablet (2 sources) Opioid Agonist Start: 09-11-2023 take 1 tablet by mouth every six hours Hydrocodone-Acet aminophen Active 1 - 2 TAB PO Q6H 15 3 September 11, 2023 aspirin 81 mg oral tablet (20 sources) Platelet Aggregation Inhibitor, Nonsteroidal Anti-inflammatory Drug Start: 08-07-2020 take 1 mg by mouth once daily aspirin 81 mg oral tablet mg tab(s), Oral, Daily, Refills(s) 0 Start Date: 08/07/20 Status: Ordered take 1 tablet by mouth in the mo rning aspirin (ASPIR) 81 MG EC tablet Take 81 mg by mouth in the morning. Active atorvastatin 40 mg oral tablet (20 sources) HMG-CoA Reductase Inhibitor Start: 08-07-2020 End: 07-28-2025 take 1 tablet by mouth at bedtime atorvastatin (Lipitor) 40 MG tablet Indications: Mixed hyperlipidemia (CMS/HCC) Take 1 tablet (40 mg) by mouth at bedtime 90 tablet 1 01/29/2025 07/28/2025 Active bifidobacterium animalis [id number] unt / lactobacillus acidophilus [id number] unt oral capsule (4 sources) L. acidophilus/Bifid. animalis 32 billion cell capsule Take by mouth. 0 Active Probiotic CAPS 1 00 mg daily Quantity: 0 Refills: 0 Ordered: 08-Oct-2021 DO Active docusate sodium 50 mg / sennosides, residential 8.6 mg oral tablet (20 sources) Start: 09-11-2023 take 2 tablets by mouth every twenty-four hours as needed [facility] Senna Plus 8.6-50 MG tablet Take 2 tablets by mouth Daily as needed. 09/11/2023 Active ketorolac tromethamine 5 mg/ml ophthalmic solution (20 sources) Nonsteroidal Anti-inflammatory Drug, Cyclooxygenase Inhibitor Start: 09-17-2024 take 1 drop(s) into the eye(s) in the morning ketorolac (Acular) 0.5 % ophthalmic solution 1 drop in the morning and 1 drop before bedtime. 09/17/2024 Active Start: 08-08-2024 End: 09-07-2024 take 1 drop(s) into the eye(s) in the morning ketorolac (Acular) 0.5 % ophthalmic solution Indications: Age-related nuclear cataract of both eyes Administer 1 drop into affected eye(s) in the morning and 1 drop before bedtime. 5 mL 1 08/08/2024 09/07/2024 Active Lactobacillus acidophilus (2 sources) Start: 08-07-2020 Acidophilus Daily, Refill(s) 0 Start Date: 08/07/20 Status: Ordered Lactobacillus Combination No.4 (Probiotic) 3 billion cell Capsule (2 sources) Start: 07-29-2021 take 3 capsules by mouth once daily Lactobacillus Combination No.4 (Probiotic) 3 billion cell Capsule Active 3000 MMU CELLS PO Daily July 28, 2021 11:00pm latanoprost 0.05 mg/ml ophthalmic solution (20 sources) Prostaglandin Analog Start: 08-08-2024 End: 08-08-2025 take 1 drop(s) into the eye(s) at bedtime latanoprost (Xalatan) 0.005 % ophthalmic solution Indications: Primary open angle glaucoma (POAG) of both eyes, mild stage INSTILL 1 DROP INTO BOTH EYES AT BEDTIME 2.5 mL 6 01/22/2025 Active methylPREDNISolone 4 mg oral tablet (2 sources) Corticosteroid Start: 09-11-2023 take 1 tablet by mouth once Methylprednisolone (Medrol (Carmine)) 4 mg tablets,dose pack Active 1 dose pk PO per package directions September 11, 2023 12:00am Multiple Vitamins-Minerals (ONE DAILY ADULTS 50+ PO) (20 sources) Multiple Vitamins-Minerals (ONE DAILY ADULTS 50+ [...] (1 source) Multivitamins as directed Orally Active nabumetone 750 mg oral tablet (3 sources) Nonsteroidal Anti-inflammatory Drug Start: 02-04-2025 End: 03-06-2025 take 1 tablet by mouth in the morning nabumetone (Relafen) 750 MG tablet Indications: Left cervical radiculopathy Take 1 tablet (750 mg) by mouth in the morning and 1 tablet (750 mg) before bedtime. 60 tablet 02/04/2025 03/06/2025 Active Omeprazole (7 sources) Proton Pump Inhibitor Start: 09-20-2021 omeprazole Oral, Daily, Refills(s) 0 Start Date: 09/20/21 Status: Ordered Start: 07-29-2021 take 40 mg by mouth twice bulmaro y Omeprazole Active 40 MG PO Twice daily 112 56 July 28, 2021 11:00pm One-A[employer] (2 sources) Start: 08-07-2020 One-A[employer] Formula Oral, Daily, Refill(s) 0 Start Date: 08/07/20 Status: Ordered predniSONE 10 mg oral tablet (5 sources) Start: 02-04-2025 predniSONE (De ltasone) 10 MG tablet Indications: Left cervical radiculopathy Every 2 day tapering dose; 5,5,4,4,3,3,2,2,1,1,0.5,0.5 31 tablet 02/04/2025 Active Start: 08-12-2024 End: 08-17-2024 take 2 tablets by mouth once daily predniSONE (Deltasone) 20 MG tablet Indications: Wood dust asthma (CMS/HCC) Take 2 tablets (40 mg) by mouth Daily for 5 days 10 tablet 08/12/2024 08/17/2024 Active Probiotic Product (PROBIOTIC 10 ULTRA STRENGTH PO) (20 sources) take 1 capsule by mouth in [...] 0 Refills: 0 Ordered: 08-Oct-2021 DO Active ofloxacin 3 mg/ml ophthalmic solution (7 sources) Quinolone Antimicrobial Start: 09-17-2024 End: 11-19-2024 ofloxacin (Ocuflox) 0.3 % ophthalmic solution See administration instructions 09/17/2024 11/19/2024 Discontinued (Therapy completed) Start: 08-08-2024 End: 08-12-2024 take 1 drop(s) into the eye(s) five times daily ofloxacin (Ocuflox) 0.3 % ophthalmic solution Indications: Age-related nuclear cataract of both eyes Administer 1 drop into the right eye 5 (five) times a day for 1 day Starting 1 day before surgery, continue after surgery as directed 5 mL 1 08/08/2024 08/12/2024 Active prednisoLONE acetate 10 mg/ml ophthalmic suspension (10 sources) Corticosteroid Start: 09-17-2024 End: 11-19-2024 prednisoLONE acetate (Pred-Forte) 1 % ophthalmic suspension See administration instructions 09/17/2024 11/19/2024 Discontinued (Therapy completed) Start: 08-08-2024 End: 08-27-2024 prednisoLONE acetate (Pred-F orte) 1 % ophthalmic suspension Indications: Age-related nuclear cataract of both eyes Administer 1 drop into both eyes in the morning and 1 drop at noon and 1 drop in the evening and 1 drop before bedtime. Do all this for 14 days. 5 mL 1 08/08/2024 08/27/2024 Problems Active Problems Problem Classification Problem Date Documented Da te Episodic/Chronic Acute myocardial infarction (2 sources) Myocardial infarction 08-07-2020 Chronic Blindness and vision defects (1 source) Bilateral peripheral visual field defect; Translations: [Other localized visual field defect, bilateral] 01-23-2025 Episodic Cataract (20 sources) Bilateral age-related nuclear cataracts; Translations: [Age-related nuclear cataract, bilateral] Onset: 08-08-2024 08-08-2024 Chronic Coronary atherosclerosis and other heart disease (14 sources) History of myocardial infarction; Translations: [Old myocardial infarction] Onset: 10-10-2022 Chronic Deficiency and other anemia (20 sources) Iron deficiency anemia due to blood loss; Translations: [Iron deficiency anemia secondary to blood loss (chronic)] Onset: 09-04-2023 09-04-2023 Chronic Deficiency and other anemia (2 sources) Iron deficiency anemia; Translations: [Iron deficiency anemia, unspecified] Episodic Disorders of lipid metabolism (20 sources) Hyperlipidemia; Translations: [Other and unspecified hyperlipidemia] Onset: 10-15-2022 08-07-2020 Chronic Diverticulosis and diverticulitis (20 sources) Diverticular disease; Translations: [Diverticulosis of intestine, part unspecified, without perforation or abscess without bleeding] Onset: 09-04-2023 09-04-2023 Chronic Esophageal disorders (20 sources) Terminal esophageal web; Translations: [Esophageal obstruction] Onset: 09-04-2023 09-04-2023 Chronic Essential hypertension (4 sources) Essential hypertension; Translations: [Essential (primary) hypertension] Onset: 10-19-2023 10-19-2023 Chronic Genitourinary symptoms and ill-defined conditions (5 sources) Nocturia; Translations: [Nocturia] Onset: 12-12-2022 Episodic Glaucoma (20 sources) Primary open angle glaucoma; Translations: [Primary open-angle glaucoma, bilateral, mild stage] Onset: 08-08-2024 08-08-2024 Chronic Hyperplasia of prostate (20 sources) Benign prostatic hyperplasia; Translations: [Hypertrophy (benign) of prostate without urinary obstruction and other lower urinary tract symptom (LUTS)] Onset: 10-15-2022 Chronic Lung disease due to external agents (2 sources) 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; Translations: [Hypersensitivity pneumonitis due to other organic dusts] 08-12-2024 Chronic Malaise and fatigue (20 sources) Chronic fatigue syndrome; Translations: [Chronic fatigue, unspecified] Onset: 09-04-2023 09-04-2023 Chronic Occlusion or stenosis of precerebral arteries (20 sources) Bilateral stenosis of carotid arteries; Translations: [Occlusion and stenosis of bilateral carotid arteries] Onset: 09-04-2023 10-17-2023 Chronic Other aftercare (1 source) Surgical follow-up; Translations: [Encounter for surgical aftercare following surgery on the sense organs] 02-10-2025 Episodic Other bone disease and musculoskeletal deformities (20 sources) Idiopathic scoliosis of thoracic spine; Translations: [...] in right leg] Onset: 09-11-2023 Episodic Other connective tissue disease (2 sources) Ganglion cyst of tendon sheath of right hand; Translations: [Ganglion, right hand] 02-08-2025 Episodic Other diseases of kidney and ureters (1 source) Urinary tract obstruction; Translations: [Other obstructive and reflux uropathy] Onset: 12-17-2024 Episodic Other eye disorders (2 sources) Ptosis of eyebrow; Translations: [Brow ptosis, unspecified] 01-23-2025 Episodic Other eye disorders (2 sources) Dermatochalasis of right upper eyelid; Translations: [Dermatochalasis] 01-23-2025 Episodic Other gastrointestinal disorders (1 source) Occult [...] conditions (not mental disorders or infectious disease) (7 sources) Raised prostate specific antigen; Translations: [Patient encounter status] Onset: 12-17-2024 03-02-2021 Episodic Peripheral and visceral atherosclerosis (20 sources) Abdominal aortic atherosclerosis; Translations: [Atherosclerosis of aorta] Onset: 09-04-2023 10-17-2023 Chronic Residual codes; unclassified (2 sources) Contact with and (suspected) exposure to mold (toxic); Translations: [Contact with and (suspected) exposure to mold] 08-12-2024 Episodic Residual codes; unclassified (2 sources) Active advance directive (copy within chart) ; Translations: [Other specified health status] 11-13-2024 Episodic Screening and history of mental health and substance abuse codes (2 sources) Patient encounter status; Translations: [Encounter for screening examination for other mental health and behavioral disorders] 11-13-2024 Episodic Spondylosis; intervertebral disc disorders; other back problems (20 sources) Other intervertebral disc degeneration, lumbar region; Translations: [Lumbosacral spondylosis without myelopathy] Onset: 09-04-2023 Chronic Spondylosis; intervertebral disc disorders; other back problems (20 sources) Lumbar radiculopathy; Translations: [Radiculopathy, lumbar region] Onset: 09-11-2023 09-11-2023 Episodic Past or Other Problems Problem Classification Problem Date Documented Date Episodic/Chronic Calculus of urinary tract (20 sources) Calculus of kidney; Translations: [Kidney stone] Onset: 09-12-2022 Episodic Mood disorders (20 sources) Mood disorders Onset: 10-17-2023 Resolved: 11-25-2024 10-17-2023 Other connective tissue disease (20 sources) Neurologic disorder due to degeneration of lumbar intervertebral disc; Translations: [Other symptoms and signs involving the nervous system] Onset: 10-17-2023 10-17-2023 Episodic Other diseases of veins and lymphatics (20 sources) Vascular insufficiency; Translations: [Venous insufficiency (chronic) (peripheral)] Onset: 09-04-2023 09-04-2023 Episodic Other nutritional; endocrine; and metabolic disorders (20 sources) Overweight; Translations: [Overweight] Onset: 09-04-2023 09-04-2023 Episodic Unclassified (3 sources) Never smoked tobacco; Translations: [Never a smoker] Unclassified (1 source) Onset: 10-19-2023 10-19-2023 Results Test Name Value Interpretation Reference Range Facility Ptosis Visual Field, Limited - OU - Both Eyeson 01-23-2025 [facility] Radiology Study observation (narrative) [facility] Ambulatory Visit Summaryon 0 12-17-2024 Ambulatory Visit Summary Ambulatory Visit Summary FARRUKH BABB :1945 Visit Date:12/17/2024 Ambulatory Visit Instructions Your Diagnosis Kidney stones Your Care Team Attending Physician - SUPRIYA AWAD PA-C Primary Care Physician - AGUEDA MAHONEY, GRADY Garcia This Is Your Medications List aspirin (aspirin 81 mg oral tablet) atorvastatin (atorvastatin 40 mg Tab) lactobacillus acidophilus (Acidophilus) multivitamin (One-A-Day Men's Health Formula) Procedures Performed Endoscopy (08/20/2021), Colonoscopy (08/06/2021), Transurethral resection of prostate (03/25/2021), Cystoscope (03/02/2021), Transrectal biopsy of prostate using ultrasound (US) guidance (08/25/2020), Transrectal biopsy of prostate using ultrasound (US) guidance (04/04/2017), Appendectomy, IH - Inguinal hernia, Neck class, Tonsillectomy. Discharge Vitals Heart Rate (Peripheral) 99 Respiratory Rate 18 Blood Pressure 118/77 Height 180 cm Height 71 in Weight 83.3 kg Weight 183.645 lb BMI 25.71 What to do next Scheduled Follow-Up Appointments Monday2025 8:20 AM EDT With: RITESH VO, SUPRIYA Abrams Where: [facility] [address] [place] [address]- Medications What How Much When Instructions Unchanged aspirin (aspirin 81 mg oral tablet) Every day Unchanged atorvastatin (atorvastatin 40 mg Tab) At bedtime Unchanged lactobacillus acidophilus (Acidophilus) Every day Unchanged multivitamin (One-A-Day Men's Health Formula) Every day Allergies clarithromycin (Nervousness) Problems Ongoing - Any problem that you are currently receiving treatment for. BPH with obstruction/lower urinary tract symptoms Elevated cholesterol Elevated PSA Gross hematuria Kidney stones Myocardial infarct Nocturia Patient Survey You may receive a survey via text or e-mail asking about your office visit. Please share your experience with us by completing your survey. We appreciate your feedback and thank you for choosing us for your care. Normal [facility] Reminderson 12-17-2024 Reminders Reminders From: Edwina Diehl To: EU - Administrative; Sent: 12/17/2024 09:09:16 EST Show up: 04/20/2026 09:09:00 EDT Subject: Ambulatory Reminder Due Date/Time: 05/06/2026 09:08:00 EDT Reminder/Recall Please mail KUB order to patient. He is scheduled on 06/09/26 with ESTELLA for a 18m f/u and order needs to be sent. Normal [facility] Urology Office/Clinic Noteon 12-17-2024 Urology Office/Clinic Note Urology Office/Clinic Note Chief Complaint 1yr w/ KUB HPI Staff 78 year old male here for 1 year with KUB. KUB done 10/08/24 Previous DX: BPH w/LUTS, nocturia and kidney stones. S/P TURP done 03/25/21, TRUS/BX done 03/25/20 and Rt. ESWL 06/10/21. IPSS - 10 Dysuria: denies Incomplete bladder emptying: denies Hematuria: denies Frequency: about 3-4hrs Urgency: denies Nocturia: 3x per night Stream: denies Leaking: only here and there Post void dripping: denies Wearing pads/ Depends: denies Urge incontinence: denies Stress incontinence: denies Incontinence without Sensory Awareness: denies Abdominal pain: denies Flank pain: denies Sexual complaints: denies Review of Systems PHQ Score Initial Depression Screen Score: 0 SCORE Physical Exam Vitals & Measurements HR: 99(Peripheral) RR: 18 BP: 118/77 HT: 71 in HT: 180 cm WT: 83.3 kg WT: 183.645 lb BMI: 25.71 Assessment/Plan 1. Kidney stones (N20.0: Calculus of kidney) S/p R ESWL 06/10/21 KUB 09/12/22 shows a 7 mm right nephrolith and a possible left 2 mm calcification lateral to the left L4 transverse process. KUB 12/08/23 stable right 7 mm stone within right kidney inferior pole. Left 1 mm calcification projecting over left renal pelvis. stable/unchanged. TODAY: KUB 10/08/24 - Stable 7mm R stone, no L stones visible. Denies pain or stone episodes since last encounter. Continues stone prevention diet. -1.5 yrs w KUB prior. Ordered: Body Mass Index (BMI) documented 3008F Current tobacco non-user 1036F Depression Screening Negative 3352F Influenza immunization status assessed 1030F Medication list documented in medical record 1159F Most recent diastolic blood pressure <80 mm Hg 3078F Patient screen for fall risk: no falls in last year or 1 fall with no injury in last year 1101F Review of all meds by a prescribing practitioner or clinical pharmacist documented in EHR 1160F Systolic BP <130 mm Hg (Most Recent) 3074F Urnls Dip Stick Auto w/o Microscopy POC 31987 2. BPH with obstruction/lower urinary tract symptoms (N40.1: Benign prostatic hyperplasia with lower urinary tract symptoms) S/p TURP 03/25/21. Not taking any BPH meds. IPSS 10 (6) QoL 2 (1). Pt is currently taking no bladder/prostate medication and is mostly satisfied with overall symptom control. We discussed treatment options including medication (Flomax, Proscar, etc) and procedures (TURP, Rezum, Urolift) including risks and benefits of each option. Pt prefers to continue with no changes at this time. 3. Elevated PSA (R97.20: Elevated prostate specific antigen [PSA]) S/p neg TRUS/bx 03/25/20. No longer checking PSAs. Other obstructive and reflux uropathy (N13.8: Other obstructive and reflux uropathy) Follow-up With When Contact Information RITESH VO, SUPRIYA Abrams, URL [address] [place] [address] Additional Instructions: Patient Education Kidney Stones, [id number] Problem List/Past Medical History Ongoing BPH with [...] Daily atorvastatin 40 mg Tab, Oral, Bedtime One-A-Day Men's Health Formula, Oral, Daily Allergies clarithromycin (Nervousness) Social History Alcohol Never., 12/17/2024 Substance Abuse Never., 12/17/2024 Tobacco Never (less than 100 in lifetime) Tobacco Use:. Never Smokeless Tobacco Use:., 12/17/2024 Never (less than 100 in lifetime) Tobacco Use:., 12/17/2024 Family History Myocardial infarct: Father. Immunizations Vaccine Date Status Comments pneumococcal 20-valent conjugate vaccine 09/09/2024 Recorded influenza virus vaccine, inactivated 09/09/2024 Recorded influenza virus vaccine, inactivated 07/12/2023 Recorded influenza virus vaccine, inactivated 07/2023 Recorded influenza virus vaccine, inactivated 08/22/2022 Recorded SARSCoV2 mRNA(uaesgsoqs-clol-h gin) vac 05/01/2022 Recorded SARS-CoV-2 (COVID-19) mRNA BNT-162b2 vax 08/10/2021 Recorded 2024-12-17: TPV75 influenza virus vaccine, inactivated 07/22/2021 Recorded SARS-CoV-2 (COVID-19) mRNA BNT-162b2 vax 01/01/2021 Recorded SARS-CoV-2 (COVID-19) mRNA BNT-162b2 vax 12/11/2020 Recorded influenza virus vaccine, inactivated 08/06/2020 Recorded influenza virus vaccine, inactivated 07/20/2020 Recorded pneumococcal 23-valent vaccine 08/05/2019 Recorded influenza virus vaccine, inactivated 08/05/2019 Recorded influ (more content not included)... Normal [facility] Comment on above: Result Comment: Elec tronically Signed By: SUPRIYA AWAD PA-C\.br\Date and Time Signed: 12/17/24 09:58 EST ALL CBC WITH AUTO DIFFon BASOPHILS ABSOLUTE AUTO 0.1 [facility] Basophils/100 WBC (Bld) 1.3 % 0.2 - 2.0 % [facility] Eosinophils/100 WBC (Bld) 9.3 % High 0.9 - 7.0 % [facility] Erythrocyte distribution width (RBC) [Ratio] 12.5 % 11.0 - 15.0 % [facility] Hematocrit (Bld) [Volume fraction] 40.4 % Low 42.0 - 54.0 % [facility] Hemoglobin (Bld) [Mass/Vol] 13.4 g/dL Low 14.0 - 18.0 g/dL [facility] IMMATURE GRANULOCYTES ABS AUTO 0.01 [facility] Immature granulocytes/100 WBC (Bld) 0.1 % 0.0 - 0.5 % [facility] Interpretation and review of laboratory results Abnormal [facility] LYMPHOCYTES ABSOLUTE AUTO 1.7 [facility] Lymphocytes/100 WBC (Bld) 23.5 % 20.5 - 60.0 % [facility] MCH (RBC) [Entitic mass] 31.7 pg 25.9 - 34.0 pg [facility] MCHC (RBC) [Mass/Vol] 33.2 g/dL 29.9 - 35.2 g/dL [facility] [employer] MCV (RBC) [Entitic vol] 95.5 fL High 80.0 - 94.0 fL [facility] MONOCYTES ABSOLUTE AUTO 0.7 [facility] Monocytes/100 WBC (Bld) 9.8 % 1.7 - 12.0 % [facility] NEUTROPHILS ABSOLUTE AUTO 3.9 [facility] Neutrophils/100 WBC (Bld) 56 % 43.0 - 75.0 % [facility] Platelet mean volume (Bld) [Entitic vol] 9.4 fL Low 9.5 - 13.5 fL [facility] TBH EO # 0.7 [facility] [employer] TBH PLT 248 [facility] RBC 4.23 Low NOM [employer] TBH WBC 7 [facility] e [facility] [employer] Ophthalmic OCT panelOrdered By: Janna Valadez on 08-08-2024 [facility] [employer] Radiology Study observation (narrative) [facility] [employer] US Eye+Orbit - bilateralon 1 Diagnosis: Cataract both eyes (OU) Testing Indication: Performed for preop measurements in the determination of an intraocular lens (IOL) for both eyes (OU) Test Reliability: Good quality both eyes (OU) Interpretation: Good measurements for intraocular lens (IOL) calculation purposes. Calculation made for both eyes (OU). [facility] [employer] [facility] Study observation (narrative) [facility] [employer] XR lumbar spine AP/LAT/FLX/E XTon 11-10-2023 XR lumbar spine AP/LAT/FLX/EXT [facility] [place] [address] XRay Report Signed Patient: Farrukh Babb MR#: [id number] : 1945 Acct:[id number] Age/Sex: 78 / M ADM Date: 11/10/23 Loc: XD Room: Type: [facility] Attending Dr: Grady Romeo MD Copies [...] hypertrophic facet changes. SOFT TISSUES: Atherosclerosis. BONY MINERALIZATION:[place] te XR/XR lumbar spine AP/LAT/FLX/EXT IMPRESSION: No hypermobility. Similar Lower lumbar degeneration Impression dictated by: Bg Gurrola M.D.11/10/2023 9:29 PM Dictation Location: [place] [address] Transcribed By: [facility] 11/10/232128 Dictated By: Bg Gurrola DO 11/10/232126 Signed By: 11/10/232128 Normal [facility] XR hip RT min 2V(w/wo pelvis )*on 09-11-2023 XR hip RT min 2V(w/wo pelvis)* [facility] [place] [address] XRay Report Signed Patient: Farrukh Babb MR#: [id number] : 1945 Acct:[id number] Age/Sex: 78 / M ADM Date: 09/11/23 Loc: ER Room: Type: [facility] ER Attending Dr: Copies to: [...] Micheal Jett M.D.09/11/2023 11:03 AM Dictation Location: [facility]IO-PC-12 Transcribed By: KINA 09/11/231102 Dictated By: Micheal Jett II, MD 09/11/231100 Signed By: 09/11/231102 [facility] XR lumbar spine 2-3V*on XR lumbar spine 2-3V* [facility] [place] [address] XRay Report Signed Patient: Farrukh Babb MR#: [id number] : 1945 Acct:[id number] Age/Sex: 78 / M ADM Date: 09/11/23 Loc: ER Room: Type: [facility] ER Attending Dr: Copies to: [...] Micheal Jett M.D.09/11/2023 11:04 AM Dictation Location: [facility]12 Transcribed By: KINA 09/11/231103 Dictated By: Micheal Jett II, MD 09/11/231102 Signed By: 09/11/231103 [facility] Office Visit (Cardiology)on 10-19-2022 Follow-up visit Diagnoses/Problems Assessed Normal coronary angiogram (V72.85) 2007 cardiac cath with angiographically normal coronaries Current daily activity greater than 4 METS without concerning symptoms Normal cardiac ejection fraction 2007 cardiac cath LVEF 50% Hyperlipidemia (272.4) (E78.5) High intensity statin Managed by [facility] October 2022 HDL 53, LDL 41 Overweight with body mass index (BMI) of 25 to 25.9 in adult (278.02,V85.21) (E66.3,Z68.25) Reviewed the merits of healthy lifestyle choices on overall cardiovascular health. Orders Hyperlipidemia Renew: Atorvastatin Calcium 40 MG Oral Tablet; TAKE 1 TABLET DAILY Hyperlipidemia, Normal cardiac ejection fraction, Normal coronary angiogram ALT - Alanine Aminotransferase, Serum; Status:Active; Requested for:[id number]; AST; Status:Active; Requested for:[id number]; Basic Metabolic Panel; Status:Active; Requested for:[id number]; Lipid Panel; Status:Active; Requested for:[id number]; Overweight with body mass index (BMI) of 25 to 25.9 in adult Healthy Weight Tips; Status:Complete; Done: [id number] Patient Instructions Please bring all medicines, vitamins, [...] has followed routinely with Dr. Lorenzana since 2007 hospitalization for atypical chest pain and at [...] ADLs. 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 He has no stairs at [...] Delayed ReleaseTAKE 1 CAPSULE TWICE DAILY. Probiotic CHUK083 mg daily Allergies Medication clarithromycin Allergy; Recorded By: Amanda Watkins; 09/23/2021 10:22:16 AM Social History Problems Alcohol use (V49.89) (Z78.9) Caffeine use (V49.89) (Z78.9) 1 cup of coffee Never a smoker No illicit drug use Review of Systems Constitutional: not feeling tired. Cardiovascular: no chest pain, no palpitations and no low (more content not included)... Normal [employer] Tobacco Screening.on 022 Adult depression screening assessment No [facility] [employer] SolutionsChucky 250 DO Work Phone: Fall risk assessment a) No falls within the last year [facility] QuantasonMary 250 DO Work Phone: Tobacco use status CP b) No [facility] Quant[employer]Mary 250 DO Work Phone: LIPID PROFILEon 10-10-2022 CHOL-HDL RATIO NORM SEE BELOW Normal [facility] Comment on above: Result Comment: 3.3 - 4.4 LOW RISK 4.4 - 7.1 AVERAGE RISK 7.1 - 11.0 MODERATE RISK >11.0 HIGH RISK Performed By: #### B MP, LIPID, AST, ALT #### [facility] [address] [place] [address] Dr. Marisa Curtis Cholesterol [Mass/Vol] 111 mg/dL Normal <=[address] [facility] Comment on above: Performed By: #### B MP, LIPID, AST, ALT #### [facility] [address] [place] [address] Dr. Marisa Curtis Cholesterol in HDL [Mass/Vol] 53 mg/dL Normal 40-[address] [facility] Comment on above: Performed By: #### B MP, LIPID, AST, ALT #### [facility] [address] [place] [address] Dr. Marisa Curtis Cholesterol in LDL [Mass/Vol] 41.6 mg/dL Normal [facility] Comment on above: Performed By: #### B MP, LIPID, AST, ALT #### [facility] [address] [address] [address] Marisa Curtis Cholesterol.total/C holesterol in HDL [Mass ratio] 2.1 {ratio} Normal [facility] Comment on above: Performed By: #### B MP, LIPID, AST, ALT #### [facility] [address] [place] [address] Dr. Marisa Curtis HDL NORMAL > or = 60 mg/dl - LO W CARDIOVASCULAR RISK <40 mg/dl - HIGH CARDIOVASCULAR RISK Normal [facility] Comment on above: Performed By: #### B MP, LIPID, AST, ALT #### [facility] [address] [address] [address] Marisa Curtis LDL CALC NORMAL SEE BELOW Normal [facility] Comment on above: Result Comment: <100 mg/dl OPTIMAL 100 - 129 mg/dl NEAR OR ABOVE OPTIMAL 130 - 159 mg/dl BORDERLINE HIGH 160 - 189 mg/dl HIGH >190 mg/dl VERY HIGH Performed By: #### B MP, LIPID, AST, ALT #### [facility] [address] [address] [address] Marisa Curtis Triglyceride [Mass/Vol] 82 mg/dL Normal <=[address] [facility] Comment on above: Performed By: #### B MP, LIPID, AST, ALT #### [facility] [address] [address] [address] Marisa Curtis VLDL CALC 16.4 mg/dL Normal [facility] Comment on above: Performed By: #### B MP, LIPID, AST, ALT #### [facility] [address] [address] [address] Marisa Curtis PROF CHEM 8 (BAS METB)on Anion gap [Moles/Vol] 10.1 mmol/L Normal [facility] Comment on above: Performed By: #### B MP, LIPID, AST, ALT #### [facility] [address] [place] [address] Dr. Marisa Curtis Calcium [Mass/Vol] 9.1 mg/dL Normal 8.5-10.1 [facility] Comment on above: Performed By: #### B MP, LIPID, AST, ALT #### [facility] [address] [place] [address] Dr. Marisa Curtis Chloride [Moles/Vol] 104 mmol/L Normal 98-[address] [facility] Comment on above: Performed By: #### B MP, LIPID, AST, ALT #### [facility] [address] [place] [address] Dr. Marisa Curtis CO2 [Moles/Vol] 30.9 mmol/L Normal 21.0-32.0 [facility] Comment on above: Performed By: #### B MP, LIPID, AST, ALT #### [facility] [address] [address] [address] Marisa Curtis Creatinine [Mass/Vol] 0.92 mg/dL Normal 0.70-1.[address] [facility] Comment on above: Performed By: #### B MP, LIPID, AST, ALT #### [facility] [address] [address] [address] Marisa Curtis EGFR-AF HONG KONGER >60 Normal >=60 [facility] Comment on above: Performed By: #### B MP, LIPID, AST, ALT #### [facility] [address] [address] [address] Marisa Curtis EGFR-NON AF [place]ER >60 Normal >=[address] [facility] Comment on above: Performed By: #### B MP, LIPID, AST, ALT #### [facility] [address] [address] [address] Marisa Curtis Glucose [Mass/Vol] 100 mg/dL Normal 74-106 [facility] Comment on above: Performed By: #### B MP, LIPID, AST, ALT #### [facility] [address] [address] [address] Marisa Curtis Potassium [Moles/Vol] 4.0 mmol/L Normal 3.5-5.[address] [facility] Comment on above: Performed By: #### B MP, LIPID, AST, ALT #### [facility] [address] [address] [address] Marisa Curtis Sodium [Moles/Vol] 141 mmol/L Normal 136-145 [facility] Comment on above: Performed By: #### B MP, LIPID, AST, ALT #### [facility] [address] [address] [address] Marisa Curtis Urea nitrogen [Mass/Vol] 19.0 mg/dL Critically high 7.0-18.[address] [facility] Comment on above: Performed By: #### B MP, LIPID, AST, ALT #### [facility] [address] [address] [address] Marisa Curtis Urea nitrogen/Creatinine [Mass ratio] 20.7 mg/mg Normal [facility] Comment on above: Performed By: #### B MP, LIPID, AST, ALT #### [facility] [address] [place] [address] Dr. Marisa CORONELToledopolina 10-10-2022 AST [Catalytic activity/Vol] 23 U/L Normal 15-[address] [facility] Comment on above: Performed By: #### B MP, LIPID, AST, ALT #### [facility] [address] [place] [address] Dr. Marisa [facility] 10-10-2022 ALT [Catalytic activity/Vol] 28 U/L Normal 16-[address] [facility] Comment on above: Performed By: #### B MP, LIPID, AST, ALT #### [facility] [address] [place] [address] Dr. Marisa Curtis XR KUB 1 VIEWon [...] by: KIM FRANK Date: 2022-09-12 17:[address] [facility] Basic Metabolic Panelon 04-2 Anion gap [Moles/Vol] 15 mmol/L Normal 12-20 [facility] Comment on above: Result Comment: Effe ctive 11/11/2019 reference range changed. Performed By: #### B MP, LIPD #### [facility] [address] [place], [place] [id number] Calcium [Mass/Vol] 9.5 mg/dL Normal 8.6-10.2 [facility] Comment on above: Performed By: #### B MP, LIPD #### [facility] [address] [id number] Chloride [Moles/Vol] 105 mmol/L Normal 98-107 [facility] Comment on above: Performed By: #### RONALD Barahona MP #### [facility] [address] [place], [place] [id number] CO2 [Moles/Vol] 24 mmol/L Normal 20-31 [facility] Comment on above: Performed By: #### [place] FONSECA LIPRashida #### [facility] [address] [facility] [place] [id number] Creatinine [Mass/Vol] 0.8 mg/dL Normal 0.7-1.4 [facility] Comment on above: Performed By: #### RONALD Barahona MP #### [facility] [address] [id number] eGFRAA 119 mL/min/1.73m2 Normal >60 [facility] Comment on above: Performed By: #### RONALD Barahona MP #### [facility] [address] [facility] [place] [id number] eGFRNAA 98 mL/min/1.73m2 Normal >60 [facility] Comment on above: Performed By: #### RONALD Barahona MP #### [facility] [address] [facility] [place] [id number] Glucose [Mass/Vol] 100 mg/dL High 65-99 [facility] Comment on above: Result Comment: For FASTING Glucose --- ADA reference ranges: Normal 65-99 mg/dl Prediabetes 100-125 Diabetes >/= 126 Performed By: #### [place] FONSECA LIPRashida #### [facility] [address] [facility] [place] [id number] Potassium [Moles/Vol] 4.2 mmol/L Normal 3.5-5.5 [facility] Comment on above: Performed By: #### [place] FONSECA LIPRashida #### [facility] [address] [facility] [id number] Sodium [Moles/Vol] 140 mmol/L Normal 135-146 [facility] Comment on above: Performed By: #### [place] FONSECA LIPRashida #### [facility] [address] [id number] Urea nitrogen [Mass/Vol] 17 mg/dL Normal 7-25 [facility] Comment on above: Performed By: #### B RAYMUNDO, LIPD #### [facility] [address] [place], [place] [id number] Lipid Panelon 03-03-2022 Cholesterol [Mass/Vol] 118 mg/dL Low 125-200 [facility] Comment on above: Result Comment: Low risk < 200mg/dL Borderline risk 201-239 mg/dl High risk > or equal to 240 Performed By: #### B RAYMUNDO, LIPD #### [facility] [address] [facility] [place] [id number] Cholesterol in HDL [Mass/Vol] 45 mg/dL Normal >40 [facility] Comment on above: Result Comment: High Cardiovascular Risk HDL <40 mg/dL Low Cardiovascular Risk HDL > or equal to 60 mg/dl Performed By: #### B RAYMUNDO LIPD #### [facility] [address] [facility] [id number] Cholesterol in LDL [Mass/Vol] 52 mg/dL Normal [facility] Comment on above: Result Comment: LDL ATP III CLASSIFICATION LDL less than 100 mg/dl Optimal LDL 100-129 mg/dl Near or above optimal LDL 130-159 Borderline high LDL 160-189 High LDL greater than 189 mg/dl Very High Performed By: #### B RAYMUNDO LIPD #### [facility] [address] [facility] [place] [id number] Cholesterol in VLDL [Mass/Vol] 21 mg/dL Normal [facility] Comment on above: Performed By: #### B RAYMUNDO LIPD #### [facility] [address] [place], [place] [id number] Cholesterol.total/C holesterol in HDL [Mass ratio] 3 {ratio} Normal [facility] Comment on above: Performed By: #### B RAYMUNDO, LIPD #### [facility] [address] [facility] [place] [id number] Triglyceride [Mass/Vol] 106 mg/dL Normal 30-150 [facility] Comment on above: Result Comment: TRIG ATPIII CLASSIFICATIONS TRIG less than 150 mg/dl Normal TRIG 150-199 mg/dl Borderline High TRIG 200-500 mg/dl High TRIG greather than 500 mg/dl Very High Performed By: #### B RAYMUNDO, LIPD #### [facility] [address] [place], [place] [id number] US Carotid, Bilateralon 02-05 US Carotid, Bilateral [...] by Manoj Nogueira on 03/03/2022 0958 Normal [facility] Tobacco Screening.on 021 Fall risk assessment a) No falls within the last year [facility] 600 DO Work Phone: Tobacco use status CPHS b) No [facility] 600 DO Work Phone: Vital Signs Date Time Vital Sign Value Performing Clinician Facility 02-04-2025 15:22-0400 Body height 177.8 cm Grady Romeo MD Work Phone: [facility] 02-04-2025 15:22-0400 Body mass index (BMI) [Ratio] 25.68 kg/m2 Grady Romeo MD Work Phone: [facility] 02-04-2025 15:22-0400 Body weight 81.19 kg Grady Romeo MD Work Phone: [facility] 01-29-2025 13:31-0400 Body height 177.8 cm Grady Romeo MD Work Phone: [facility] 01-29-2025 13:31-0400 Body mass index (BMI) [Ratio] 25.68 kg/m2 Grady Romeo MD Work Phone: [facility] 01-29-2025 13:31-0400 Body weight 81.19 kg Grady Romeo MD Work Phone: [facility] 12-17-2024 08:36-0500 Blood Pressure Location SUPRIYAANGELLA AWAD [facility] 12-17-2024 08:36-0500 Diastolic blood pressure 77 mm[Hg] SUPRIYA RITESH [facility] 12-17-2024 08:36-0500 Heart rate 99 /min SUPRIYA RITESH [facility] 12-17-2024 08:36-0500 Respiratory rate 18 /min SUPRIYA RITESH [facility] 12-17-2024 08:36-0500 Systolic blood pressure 118 mm[Hg] SUPRIYA RITESH [facility] 11-25-2024 16:34-0500 Body height 177.8 cm Grady Romeo MD Work Phone: [facility] 11-25-2024 16:34-0500 Body mass index (BMI) [Ratio] 25.68 kg/m2 Grady Romeo MD Work Phone: [facility] 11-25-2024 16:34-0500 Body weight 81.19 kg Grady Romeo MD Work Phone: [facility] 11-25-2024 16:34-0500 Diastolic blood pressure 84 mm[Hg] Grady Romeo MD Work Phone: [facility] 11-25-2024 16:34-0500 Systolic blood pressure 126 mm[Hg] Grady Romeo MD Work Phone: [facility] 08-27-2024 15:23-0400 Body height 177.8 cm Grady Romeo MD Work Phone: [facility] 08-27-2024 15:23-0400 Body mass index (BMI) [Ratio] 24.97 kg/m2 Grady Romeo MD Work Phone: [facility] 08-27-2024 15:23-0400 Body weight 78.93 kg Grady Romeo MD Work Phone: [facility] 08-12-2024 09:23-0400 Body height 177.8 cm Grady Romeo MD Work Phone: [facility] 08-12-2024 09:23-0400 Body mass index (BMI) [Ratio] 24.97 kg/m2 Grady Romeo MD Work Phone: [facility] 08-12-2024 09:23-0400 Body weight 78.93 kg Grady Romeo MD Work Phone: [facility] 08-12-2024 09:23-0400 Heart rate 96 /min Grady Romeo MD Work Phone: [facility] 08-12-2024 09:23-0400 SaO2% (BldA) [Mass fraction] 99 % Grady Romeo MD Work Phone: [facility] 10-19-2023 08:54-0500 Diastolic blood pressure 86 mm[Hg] Wen Maza MD Work Phone: [facility] 10-19-2023 08:54-0500 Systolic blood pressure 142 mm[Hg] Wen Maza MD Work Phone: [facility] 10-19-2023 08:41-0500 Body height 180.3 cm Wen Maza MD Work Phone: [facility] 10-19-2023 08:41-0500 Body mass index (BMI) [Ratio] 24.27 kg/m2 Wen Maza MD Work Phone: [facility] 10-19-2023 08:41-0500 Body weight 78.93 kg Wen Maza MD Work Phone: [facility] 10-19-2023 08:41-0500 Heart rate 86 /min Wen Maza MD Work Phone: [facility] 09-11-2023 02:57-0500 Diastolic blood pressure 90 mm[Hg] MD Grady Romeo Work Phone: [facility] 09-11-2023 02:57-0500 Heart rate 84 /min MD Grady Romeo Work Phone: [facility] 09-11-2023 02:57-0500 Respiratory rate 16 /min MD Grady Romeo Work Phone: [facility] 09-11-2023 02:57-0500 SaO2% (BldA) [Mass fraction] 97 % MD Grady Romeo Work Phone: [facility] 09-11-2023 02:57-0500 Systolic blood pressure 162 mm[Hg] MD Grady Romeo Work Phone: [facility] 09-11-2023 02:39-0500 Body temperature 98.1 [degF] MD Grady Romeo Work Phone: [facility] 09-11-2023 02:37-0500 Body height 180.34 cm MD Grady Romeo Work Phone: [facility] 09-11-2023 02:37-0500 Body weight 79.37 kg MD Grady Romeo Work Phone: [facility] 12-12-2022 12:40-0500 Blood Pressure Location Marco A LICONA [facility] 12-12-2022 12:40-0500 Diastolic blood pressure 74 mm[Hg] Marco A LICONA [facility] 12-12-2022 12:40-0500 Heart rate 70 /min Marco A LICONA [facility] 12-12-2022 12:40-0500 Respiratory rate 16 /min Marco A LICONA [facility] 12-12-2022 12:40-0500 Systolic blood pressure 132 mm[Hg] Marco A LICONA [facility] 10-19-2022 09:25-0500 Body height 180.34 cm Grady Romeo Work Phone: [facility] 250 DO Work Phone: 10-19-2022 09:25-0500 Body mass index (BMI) [Ratio] 25.11 kg/m2 Grady Romeo Work Phone: [facility] 250 DO Work Phone: 10-19-2022 09:25-0500 Body surface area Derived from formula 2.02 m2 Grady Romeo Work Phone: [facility] 250 DO Work Phone: 10-19-2022 09:25-0500 Body weight 81.65 kg Grady Romeo Work Phone: [facility] 250 DO Work Phone: 10-19-2022 09:25-0500 Diastolic blood pressure 78 mm[Hg] Grady Romeo Work Phone: [facility] 250 DO Work Phone: 10-19-2022 09:25-0500 Heart rate 76 /min Grady Romeo Work Phone: [facility] 250 DO Work Phone: 10-19-2022 09:25-0500 Systolic blood pressure 136 mm[Hg] Edward J Agueda Work Phone: [facility] 250 DO Work Phone: 10-08-2021 08:43-0500 Diastolic blood pressure 80 mm[Hg] Baadalid Garciayer Work Phone: [facility] 600 DO Work Phone: 10-08-2021 08:43-0500 Systolic blood pressure 138 mm[Hg] Grady Jose Garciayer Work Phone: [facility] 600 DO Work Phone: 10-08-2021 08:31-0500 Body height 180.34 cm Grady Jose Romeo Work Phone: [facility] 600 DO Work Phone: 10-08-2021 08:31-0500 Body mass index (BMI) [Ratio] 26.08 kg/m2 Baadalid Romeo Work Phone: [facility] 600 DO Work Phone: 10-08-2021 08:31-0500 Body surface area Derived from formula 2.05 m2 Grady Garciasharita Work Phone: [facility] 600 DO Work Phone: 10-08-2021 08:31-0500 Body weight 84.82 kg Grady Garciasharita Work Phone: [facility] 600 DO Work Phone: 10-08-2021 08:31-0500 Diastolic blood pressure 101 mm[Hg] Grady Garciayer Work Phone: [facility] 600 DO Work Phone: 10-08-2021 08:31-0500 Heart rate 90 /min Grady Garcaiyer Work Phone: [facility] 600 DO Work Phone: 10-08-2021 08:31-0500 Systolic blood pressure 136 mm[Hg] Grady Romeo Work Phone: [facility] 600 DO Work Phone: Encounters Encounter Date Encounter Type Care Provider Facility Start: 06-09-2026 ambulatory SUPRIYA Antoni ty:CORIE Reed Start: 02-10-2025 End: 02-10-2025 Postop follow up visit related to original px May Perea MD Work Phone: [facility] Comment on above: Postoperative care f or cataract (Primary Dx) Start: 02-10-2025 End: 02-10-2025 ambulatory MAY PEREA Not Available Start: 02-04-2025 End: 02-04-2025 Office outpatient visit 25 minutes Grady Romeo MD Work Phone: [facility] Comment on above: Left cervical radicu lopathy (Primary Dx) Start: 02-04-2025 End: 02-04-2025 ambulatory GRADY ROMEO Not Available Start: 02-04-2025 End: 02-04-2025 Bamboo flowsheet Grady Romeo MD Work Phone: [facility] Start: 02-04-2025 End: 02-04-2025 Bamboo flowsheet Grady Romeo MD Work Phone: [facility] Start: 01-31-2025 End: 01-31-2025 ambulatory MAY PEREA Not Available Start: 01-31-2025 End: 01-31-2025 Patient encounter procedure May Perea MD Work Phone: [facility] Comment on above: Brow ptosis (Primary Dx); Dermatochalasis of both upper eyelids Start: 01-29-2025 End: 01-29-2025 Bamboo flowsheet Grady Romeo MD Work Phone: [facility] Start: 01-29-2025 End: 01-29-2025 Bamboo flowsheet Grady Romeo MD Work Phone: [facility] Start: 01-29-2025 End: 01-29-2025 Office outpatient visit 15 minutes Grady Romeo MD Work Phone: [facility] Comment on above: Ganglion cyst of ten don sheath of right hand (Primary Dx); Mixed hyperlipidemia (CMS/HCC) Start: 01-29-2025 End: 01-29-2025 ambulatory GRADY ROMEO Not Available Start: 01-23-2025 End: 01-23-2025 Bamboo flowsheet May Perea MD Work Phone: [facility] Start: 01-23-2025 End: 01-23-2025 Bamboo flowsheet May Perea MD Work Phone: [facility] Start: 01-23-2025 End: 01-23-2025 ambulatory MAY PEREA Not Available Start: 12-17-2024 End: 12-17-2024 ambulatory SUPRIYA AWAD Facility:[facility] Start: 12-17-2024 End: 12-17-2024 Patient encounter procedure SUPRIYA AWAD [facility] Start: 11-19-2024 End: 11-19-2024 Bamboo flowsheet Grady Romeo MD Work Phone: [facility] Start: 11-19-2024 End: 11-19-2024 Bamboo flowsheet Grady Romeo MD Work Phone: [facility] Start: 11-19-2024 End: 11-19-2024 Patient encounter procedure Grady Romeo MD Work Phone: [facility] Comment on above: Encounter for Med[employer] re annual wellness exam (Primary Dx); Advance directive in chart; Encounter for screening for other disorder; Screening for alcohol problem; Overweight; Mixed hyperlipidemia (CMS/HCC); Primary open angle glaucoma (POAG) of both eyes, mild stage (CMS/HCC); Abdominal aortic atherosclerosis (CMS/HCC) Start: 11-19-2024 End: 11-19-2024 ambulatory GRADY ROMEO Not Available Start: 10-08-2024 End: 10-08-2024 Clinisync Result Encounter Grady Romeo MD Work Phone: [facility] Unsolicited Start: 10-08-2024 End: 10-08-2024 Clinisync Result Encounter Grady Romeo MD Work Phone: [facility] Unsolicited Start: 08-27-2024 End: 08-27-2024 Office outpatient visit 15 minutes Grady Romeo MD Work Phone: [facility] Comment on above: Mixed hyperlipidemia (CMS/HCC) (Primary Dx); Chronic fatigue; Screening for diabetes mellitus (DM); Iron deficiency anemia due to chronic blood loss Start: 08-27-2024 End: 08-27-2024 ambulatory GRADY ROMEO Not Available Start: 08-27-2024 End: 08-27-2024 Bamboo flowsheet Grady [...] 03-21-2024 ambulatory GRADY ROMEO Not Available Start: 11-30-2023 End: 11-30-2023 ambulatory Chucho Sullivan Other [employer] Other Start: 11-30-2023 Office consultation new/estab patient 40 min Chucho Sullivan [facility] Start: 11-10-2023 End: 11-10-2023 ambulatory Grady Romeo Facility:[facility] Start: 11-10-2023 End: 11-10-2023 ambulatory MD Grady Romeo Work Phone: [facility] Work Phone: Start: 11-10-2023 End: 11-10-2023 Patient encounter procedure MD Grady Romeo Work Phone: [facility] [place] Work Phone: Start: 10-19-2023 End: 10-19-2023 Office outpatient visit 15 minutes Wen Maza MD Work Phone: [facility] Comment on above: Atherosclerosis of n ative coronary artery of [place] heart without angina pectoris; Mixed hyperlipidemia; Benign prostatic hyperplasia, unspecified whether lower urinary tract symptoms present; Essential hypertension Start: 10-19-2023 End: 10-19-2023 ambulatory [facility] Start: 09-11-2023 End: 09-11-2023 Emergency department patient visit Ender Aguilar Jr Facility:[facility] Start: 09-11-2023 End: 09-11-2023 Emergency department patient visit MD Grady Romeo Work Phone: [facility] Work Phone: Start: 12-12-2022 End: 12-12-2022 Patient encounter procedure Marco A LICONA [facility] Start: 10-19-2022 Office outpatient vi sit 15 minutes Grady Romeo Work Phone: [facility] 250 DO Work Phone: Start: 10-19-2022 ambulatory Grady Romeo Facility:[id number] Start: 10-10-2022 End: 10-11-2022 ambulatory EDIE NAGEL Facility:[facility] Start: 09-12-2022 End: 09-13-[address] MARCO A LICONA Facility:[facility] Start: 09-06-2022 Telephone encounter Grady ornelas Work Phone: [facility] 250 DO Work Phone: Start: 10-21-2021 Rx Renewal Grady Stephenson er Work Phone: [facility] 600 DO Work Phone: Imaging result normal Grady ornelas Work Phone: [facility] 250 DO Work Phone: Procedures Date Procedure Procedure Detail Performing Clinician Start: 01-23-2025 Visual field xm uni/ bi w/interpretj limited exam May Perea MD Work Phone: Start: 01-23-2025 End: 01-23-2025 Oph medical xm&eval compre new pt 1/> vst Loss of peripheral visual field, bilateral May Perea MD Work Phone: Comment on above: Loss of peripheral v isual field, bilateral (Primary Dx); Brow ptosis; Dermatochalasis of both upper eyelids Start: 10-08-2024 ALL CBC WITH AUTO DIFF Grady Romeo MD Work Phone: Start: 08-08-2024 Computerized ophthal charity imaging optic [...] Grady Romeo Work Phone: Start: 08-20-2021 Endoscopy Marco A DUBOSE Start: 08-06-2021 Colonoscopy Marco A DUBOSE Start: 03-25-2021 Transurethral prostatectomy Marco A LICONA Start: 03-02-2021 Cystoscope, device (physical object) Marco A LICONA Start: 08-25-2020 Transrectal biopsy o f prostate using ultrasound guidance Marco A LICONA Start: 04-04-2017 Transrectal biopsy o f prostate using ultrasound guidance Marco A LICONA Appendectomy Grady dwyer Work Phone: Appendectomy Marco A LICONA Colonoscopy Grady Sharp r Work Phone: Comment on above: nov 2016; Hernia repair Grady Stephenson er Work Phone: Inguinal hernia (disorder) Marco A LICONA Neck class Marco A LICONA Operative procedure on hand Baadalid Jose Garciasharita Work Phone: Procedure on neck Grady Pena akilglenna Work Phone: Tonsillectomy Marco A LICONA Plan of Treatment Date Care Activity Detail Author Start: 11-19-2025 Medicare Annual Well ness (AWV) Medicare Annual Wellness (AWV) [facility] Start: 02-17-2025 End: 02-17-2025 Patient encounter procedure [facility] Start: 02-10-2025 End: 02-10-2025 Patient encounter procedure 02/10/2025 9:45 AM EDT Office Visit [facility] [address] [place] [address] May Perea MD [address] [place], [place] [id number] [facility] Start: 02-04-2025 End: 02-04-2025 Patient encounter procedure 02/04/2025 3:30 PM EDT Office Visit [facility] [address] [place] [address] Grady Romeo MD [address] [place] [address] (Fax) Arrived [facility] Comment on above: Arrived Start: 01-31-2025 End: 01-31-2025 Patient encounter procedure 01/31/2025 11:00 AM EDT Procedure Visit [facility] [address] [place] [address] May Perea MD [address] [place] [address] [facility] Start: 01-29-2025 End: 01-29-2025 Patient encounter procedure 01/29/2025 1:45 PM EDT Office Visit [facility] [address] [place] [address] Grady Romeo MD [address] [place] [address] (Fax) Arrived [facility] Comment on above: Arrived Start: 01-23-2025 End: 01-23-2025 Patient encounter procedure 01/23/2025 8:30 AM EDT Office Visit [facility] [address] [place] [id number] May Perea MD [address] [place] [address] Arrived [facility] Comment on above: Arrived Start: 11-19-2024 End: 11-19-2024 Patient encounter procedure 11/19/2024 10:30 AM EST Office Visit [facility] [address] [place] [address] Grady Romeo MD [address] [place] [address] (Fax) Encounter for Medicare annual wellness exam; Advance directive in chart; Encounter for screening for other disorder; Screening for alcohol problem; Overweight [facility] Comment on above: [facility] Advance directive in chart; Encounter for screening for other disorder; Screening for alcohol problem; Overweight Start: 10-21-2024 End: 10-21-2024 Patient encounter procedure 10/21/2024 10:00 AM EST Office Visit [facility] [address] [place] [address] Grady Romeo MD [address] [facility] [address] [place] [address] [facility] Start: 10-17-2024 Medicare Annual Well ness (AWV) Medicare Annual Wellness (AWV) [facility] Start: 09-23-2024 End: 09-23-2024 Patient encounter procedure 09/23/2024 9:05 AM EST Procedure Visit [facility] Kandy Longoria, DO [address] [place] [address] [facility] Start: 08-29-2024 End: 08-29-2024 Patient encounter procedure [facility] Start: 08-27-2024 End: 08-27-2024 Patient encounter procedure 08/27/2024 3:40 PM EDT Office Visit [facility] [address] [address] Grady Romeo MD [address] [place] [address] Mixed hyperlipidemia (CMS/HCC) [facility] Comment on above: Mixed hyperlipidemia (CMS/HCC) Start: 08-27-2024 End: 08-27-2025 CBC W Auto Differential panel - Blood CBC and differential Lab Routine Chronic fatigue Iron deficiency anemia due to chronic blood loss Expected: 08/27/2024 (Approximate), Expires: 08/27/2025 [facility] Work Phone: Comment on above: Expected: 08/27/2024 (Approximate), Expires: 08/27/2025 Start: 08-27-2024 End: 08-27-2025 Comprehensive metabolic 2000 panel - Serum or Plasma Comprehensive metabolic panel Lab Routine Chronic fatigue Screening for diabetes mellitus (DM) Expected: 08/27/2024 (Approximate), Expires: 08/27/2025 [facility] Comment on above: Expected: 08/27/2024 (Approximate), Expires: 08/27/2025 Start: 08-27-2024 End: 08-27-2025 Lipid 1996 panel - Serum or Plasma Lipid panel Lab Routine Mixed hyperlipidemia (CMS/HCC) Expected: 08/27/2024 (Approximate), Expires: 08/27/2025 [facility] Comment on above: Expected: 08/27/2024 (Approximate), Expires: 08/27/2025 Start: 08-12-2024 End: 08-12-2024 Patient encounter procedure 08/12/2024 9:30 AM EDT Office Visit [facility] [address] [facility] [address] [place] [address] Grady Romeo MD [address] [place], [place] [id number] Arrived [facility] Comment on above: Arrived Start: 08-08-2024 End: 08-08-2024 Patient encounter procedure 08/08/2024 1:45 PM EDT Office Visit [facility] [address] [place] [id number] Kandy Longoria, DO [address] [place] [address] Arrived [facility] Comment on above: Arrived Start: 07-07-2024 Influenza vaccination Influenza Vacc ine (#1) [facility] Start: 10-19-2023 FUV, Provider: Wen Maza, Status: Pen, Time: 9:00 AM FUV, Provider: Wen Maza, Status: Pen, Time: 9:00 AM [facility] 250 DO Work Phone: Start: 09-11-2023 Plain X-ray of right hip XR hi p RT min 2V(w/wo pelvis)* [facility] Start: 09-11-2023 X-ray of lumbar spin e, two or three views XR lumbar spine 2-3V* [facility] Start: 09-11-2023 XR Hip - right 2 Views [facility] Start: 09-11-2023 XR Lumbar spine 2 or 3 Views [facility] Start: 10-19-2022 FUV, Provider: Edie Mathis, Status: Pen, Time: 9:30 AM FUV, Provider: Edie Mathis, Status: Pen, Time: 9:30 AM [facility] Work Phone: Start: 10-18-2022 FUV, Provider: Rg Lorenzana, Status: Pen, Time: 8:30 AM FUV, Provider: Rg Lorenzana, Status: Pen, Time: 8:30 AM [facility] 600 DO Work Phone: Start: 06-26-2022 COVID-19 Vaccine (4 - Pfizer series) COVID-19 Vaccine (4 - Pfizer series) [facility] Start: 09-02-2016 DTaP/Tdap/Td Vaccine s (1 - Tdap) DTaP/Tdap/Td Vaccines (1 - Tdap) [facility] Start: 1995 Zoster Vaccines (1 of 2) Zoster Vacc kaya (1 of 2) [facility] Start: 1963 Diabetes mellitus screening Diabetes Screening [facility] Start: 1963 Hepatitis C screening Hepatitis C [facility] Start: 1945 Lipid panel Lipid Panel [facility] Start: 1945 Medicare Annual Well ness Visit Medicare Annual Wellness Visit (AWV) [facility] Patient Education Radiculopathy Opioids for Short-Term Treatment of Pain ED [facility] Work Phone: Patient referral [facility] Work Phone: Immunizations Immunization Date Immunization Notes Care Provider Fa cility 09-09-2024 influenza virus vacc ine, unspecified formulation SUPRIYA AWAD [facility] 09-09-2024 pneumococcal 20-amber nt conjugate vaccine SUPRIYA AWAD [facility] 09-09-2024 Seasonal trivalent influenza vaccine, adjuvanted, preservative free Grady Romeo MD Work Phone: [facility] 07-12-2023 Influenza, Seasonal, Quadrivalent, Adjuvanted Kandy Longoria DO Work Phone: [facility] 07-12-2023 influenza virus vacc ine, unspecified formulation Kandy Longoria DO Work Phone: [facility] 07-07-2023 influenza virus vacc ine, unspecified formulation SUPRIYA AWAD [facility] 08-22-2022 Fluad Quadrivalent 0 .5 ML Intramuscular Prefilled Syringe Grady Romeo Work Phone: [facility] 250 DO Work Phone: 08-22-2022 influenza virus vacc ine, unspecified formulation SUPRIYA RITESH [facility] 05-01-2022 Comirnaty 30 MCG/0.3 ML Intramuscular Suspension Grady Romeo Work Phone: [facility] 250 DO Work Phone: 05-01-2022 SARS-CoV-2 mRNA (jmhusdeziqw-wjjh-vnlkok e) vaccine SUPRIYA RITESH [facility] 08-10-2021 [employer]-BioNTTech[employer]aner COVI D-19 Vacc 30 MCG/0.3ML Intramuscular Suspension Grady Romeo Work Phone: [facility] Comment on above: Result Comment: 2024: [id number] 07-22-2021 Fluzone High-Dose Quadrivalent 0.7 ML Intramuscular Suspension Prefilled Syringe Grady Romeo Work Phone: [facility] 600 DO Work Phone: 07-22-2021 influenza virus vacc ine, unspecified formulation SUPRIYA AWAD [facility] 07-22-2021 influenza, injectabl e, quadrivalent, preservative free Wen Maza MD Work Phone: [facility] Work Phone: 01-01-2021 Pfizer-BioNTech COVI D-19 Vacc 30 MCG/0.3ML Intramuscular Suspension Grady Jose Agueda Work Phone: [facility] 12-11-2020 Pfizer-BioNTech COVI D-19 Vacc 30 MCG/0.3ML Intramuscular Suspension Grady Jose Agueda Work Phone: [facility] 08-06-2020 influenza virus vacc ine, unspecified formulation Marco A MAGDI [facility] 07-20-2020 Fluzone High-Dose Quadrivalent 0.7 ML Intramuscular Suspension Prefilled Syringe Baadalid Jose Agueda Work Phone: [facility] 600 DO Work Phone: 07-20-2020 influenza virus vacc ine, unspecified formulation SUPRIYA AWAD [facility] 07-20-2020 influenza, high dose seasonal, preservative-free Wen Maza MD Work Phone: [facility] Work Phone: 08-05-2019 influenza virus vacc ine, unspecified formulation SUPRIYA AWAD [facility] 08-05-2019 influenza, high dose seasonal, preservative-free Grady Jose Agueda Work Phone: [facility] 600 DO Work Phone: 08-05-2019 pneumococcal conjuga te vaccine, 13 valent Wen Maza MD Work Phone: [facility] Work Phone: 08-05-2019 pneumococcal polysaccharide vaccine, 23 valent Grady Garcia Hemeyer Work Phone: [facility] 09-06-2018 influenza virus vacc ine, unspecified formulation SUPRIYA AWAD [facility] 09-06-2018 influenza, injectabl e, quadrivalent, preservative free Grady J Hemeyer Work Phone: [facility] 600 DO Work Phone: 08-06-2018 influenza virus vacc ine, unspecified formulation SUPRIYA AWAD [facility] 08-06-2018 influenza, high dose seasonal, preservative-free Baadalid J Hemeyer Work Phone: [facility] 600 DO Work Phone: 08-06-2018 pneumococcal conjuga te vaccine, 13 valent Grady Garcia Hemeyer Work Phone: [facility] 600 DO Work Phone: 10-26-2017 influenza virus vacc ine, unspecified formulation Wen Maza MD Work Phone: [facility] Work Phone: 10-26-2017 influenza, injectabl e, quadrivalent, preservative free Grady J Hemeyer Work Phone: [facility] 600 DO Work Phone: 09-01-2016 tetanus and diphther ia toxoids, adsorbed, preservative free, for adult use (2 Lf of tetanus toxoid and 2 Lf of diphtheria toxoid) SUPRIYA AWAD [facility] 09-01-2016 tetanus and diphther ia toxoids, adsorbed, preservative free, for adult use (5 Lf of tetanus toxoid and 2 Lf of diphtheria toxoid) Grady Jose Joseyer Work Phone: [facility] 600 DO Work Phone: 08-04-2016 influenza virus vacc ine, unspecified formulation Wen Maza MD Work Phone: [facility] Work Phone: 08-04-2016 influenza, high dose seasonal, preservative-free Grady Garcia [employer] Work Phone: [facility] 600 DO Work Phone: 08-04-2016 pneumococcal conjuga te vaccine, 13 valent Wen Maza MD Work Phone: [facility] Work Phone: 08-04-2016 pneumococcal polysaccharide vaccine, 23 valent Grady Garcia [employer] Work Phone: [facility] 07-22-2015 pneumococcal conjuga te vaccine, 13 valent Grady Garcia [employer] Work Phone: [facility] 600 DO Work Phone: 07-22-2015 pneumococcal polysaccharide vaccine, 23 valent Kandy Longoria DO Work Phone: [facility] Payers Date Payer Category Payer Self-pay [id number] 2021 Medicaid [employer] MEDICARE A DVANTAGE [id number] 2021 Medicare [id number] 1959 Medicare [id number] 1945 Unknown [id number] [id number] 1945 Unknown [id number] [id number] 1945 Unknown [id number] 2.16.840.1.718022.3.579.2.356 1945 Unknown [id number] 2.16.840.1.095224.3.579.2.1244 1945 Unknown [id number] 2.16.840.1.311040.3.579.2.727 1945 Unknown [id number] 2.16.840.1.043032.3.579.2.727 1945 Unknown [id number] 2.16.840.1.117601.3.579.2.1259 1945 Unknown [id number] 2.16.840.1.650422.3.579.2.1259 1945 Unknown [id number] 2.16.840.1.648774.3.579.2.1259 1945 Unknown [id number] 2.16.840.1.081946.3.579.2.1259 1945 Unknown [id number] 2.16.840.1.701858.3.579.2.1259 1945 Unknown [id number] 2.16.840.1.292129.3.579.2.1259 1945 Unknown [id number] 2.16.840.1.652093.3.579.2.1259 1945 Unknown [id number] 2.16.840.1.928214.3.579.2.9 1945 Unknown [id number] 2.16.840.1.496680.3.579.2.9 1945 Unknown [id number] 2.16.840.1.073922.3.579.2.1259 Medicare [id number] Unknown [employer] Unknown [id number] [id number] Unknown [id number] [id number] Social History Date Type Detail Facility Start: 10-19-2023 End: 02-04-2025 Never a smoker Never a smoker [facility] 600 DO Work Phone: Comment on above: 1 cup of coffee; Start: 09-20-2021 End: 09-04-2023 Tobacco smoking status Never smoked tobacco (finding) [facility] Start: 10-19-2023 End: 02-04-2025 Sex Assigned At Male [facility] Start: 1945 Sex Assigned At Male F [facility] Start: 09-04-2023 End: 10-18-2023 Tobacco use and exposure Smokeless tobacco non-user [facility] Work Phone: Start: 10-19-2023 Alcohol intake Current drinke r of alcohol (finding) [facility] Work Phone: Start: 1945 Sex Assigned At Not on file [facility] Work Phone: Start: 10-09-2023 End: 10-19-2023 Exposure to SARS-CoV-2 (event) Not sure [facility] Start: 03-21-2024 End: 02-04-2025 Alcoholic beverage intake Ex-drinker (finding) [facility] Start: 09-04-2023 Alcohol Comment Caffeine intak e : 2-3 cups per day [facility] Tobacco smoking status Never [facility] Medical Equipment Procedure Code Equipment Code Equipment Origin al Text Equipment Identifier Dates Capsule endoscopy, for patency of lumen evaluation Video capsule endoscopy system [id number] FDA Start: 09-02-2021 Functional Status Date Assessment Result Facility 12-17-2024 Functional Status N/A [facility] 12-12-2022 Functional Status N/A [facility] Clinical Notes 12-12-2022 to 02-10-2025 May Perea MD - 02/10/2025 9:45 AM Evelyn Romeo MD - 02/04/2025 3:30 PM EDTMay Perea MD - 01/31/2025 11:00 AM Evelyn Romeo MD - 01/29/2025 1:45 PM EDT Note Date & Type Note Facility 02-10-2025 History of Present illness Narrative Assessment/Plan suture removal done documented in this encounter [facility] 02-04-2025 History of Present illness Narrative Images from the original note were not included. Patient ID: Farrukh Babb is a 79 y.o. male who presents for: Shoulder Pain: Pt presents with left shoulder pain. The symptoms began several days ago. Aggravating factors: no known event. Pain is located around the acromioclavicular (AC) joint. Discomfort is described as throbbing. Symptoms are exacerbated by repetitive movements and lying on the shoulder. Evaluation to date: none. Therapy to date includes: ice, OTC analgesics which are not very effective, and heat . Review of Systems He is also complaining significant arthritis in his hands that are bothering him. His neck is doing fairly well. His low back Hurts. Objective The patient is pleasant and in no acute distress The patient has good eye contact and clear speech , but his usual monotone. The left shoulder does not demonstrate any edema. There is no increase in calor or rubor. The patient demonstrates painful arc. Minimal tenderness over the AC joint. No tenderness on palpation of the biceps tendon. Some tenderness over the lateral aspect of the arm near the insertion of the supraspinatus. Internal rotation minimally tender. External rotation moderately tender. Supraspinatus/empty can testing is significant. Abduction has [id number]. He does have full range of motion from the shoulder. Grossly neurovascularly intact. However, when flexing his head to the left reproduces his symptoms directly radiating down the left shoulder. He states this is a reproduction of what he is complaining of. The paraspinal musculature has hypertonicity. It is nontender to palpation. He does also have suboccipital muscle tightness left greater than right. Nontender. Spinous processes nontender. Visit Vitals Ht 5' 10 Wt 179 lb BMI 25.68 kg/m Smoking Status Never BSA 2 m Allergies Allergen Reactions Clarithromycin Nausea Only Famotidine Other Reaction(s): fatigue Methocarbamol Other Current Outpatient Medications on File Prior to Visit Medication Sig Dispense Refill aspirin (ASPIR) 81 MG EC tablet Take 81 mg by mouth in the morning. atorvastatin (Lipitor) 40 MG tablet Take 1 tablet (40 mg) by mouth at bedtime 90 tablet 1 [facility] Senna Plus 8.6-50 MG tablet Take 2 tablets by mouth Daily as needed. ketorolac (Acular) 0.5 % ophthalmic solution 1 drop in the morning and 1 drop before bedtime. latanoprost (Xalatan) 0.005 % ophthalmic solution INSTILL 1 DROP INTO BOTH EYES AT BEDTIME 2.5 mL 6 Multiple Vitamins-Minerals (ONE DAILY ADULTS 50+ PO) 1 (one) time each day at the same time. Probiotic Product (PROBIOTIC 10 ULTRA STRENGTH PO) Take 1 capsule by mouth in the morning. No current facility-administered medications on file prior to visit. 1. 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 I actually reviewed his surgery card and did not realize he had as many fusions did. Updated the record. We had also talked seems to have some active arthritis in multiple areas. We can certainly do a steroid injection into the shoulder to help with the shoulder in painful arc but this would most likely not help the neuropathic pain he is complaining About We have mutually agreed to a trial of systemic steroids and anti-inflammatories. If he has not improve after this it may be time to consider a spinal set of x-rays with flexion and extension views. In prescribing a new medication consideration of the following encompasses moderate decision making: the current prescriptions and supplements, the current allergies and medication intolerances, the current medical conditions, and potential drug interactions. Risks, benefits, and reason for starting their medication were discussed. The patient was given a chance to ask questions today and all questions were answered. The patient is to contact us if any other questions arise or if any problems occur with the adjustment in their medication. - predniSONE (Deltasone) 10 MG tablet; Every 2 day tapering dose; 5,5,4,4,3,3,2,2,1,1,0.5,0.5 Dispense: 31 tablet; Refill: 0 - nabumetone (Relafen) 750 MG tablet; Take 1 tablet (750 mg) by mouth in the morning and 1 tablet (750 mg) before bedtime. Dispense: 60 tablet; Refill: 0 documented in this encounter [facility] 01-31-2025 History of Present illness Narrative Assessment/Plan SURGEON: May Perea MD PREOPERATIVE DIAGNOSIS: BROW PTOSIS Dermatochalasis POSTOPERATIVE DIAGNOSIS: Same ANESTHESIA: Local PROCEDURE: BROW LIFT OU Blepharoplasty upper lid, both eyes The patient was brought to the out-patient operating room and given a local anesthetic injection of 2% lidocaine with epinephrine. Approximately 1.5cc was injected across the breadth of the lid at the level of the superior tarsal margin. 1.5 (CC) also given @ superior orbital notch ou. 15 minutes was allowed to elapse for hemostasis purposes. The eyes were then prepped and draped in the usual sterile fashion. A curvilinear micheal was placed 6mm superior to the lid margin. The excess skin was measured using forceps and this was also marked. A number 15 blade was then used to open the skin and orbicularis muscle. A skinflap was developed and using sharp dissection technique the flap was cut away from the underlying tissue.There was some minimal to moderate lipid also removed to achieve symmetry with the contra-lateral side. The brow ptosis was addressed by dissecting superiorly above the orbital rim bluntly with first a cotton tip swab then cutting bovie to the level of the occipito-frontalis fascia. A 4-0 mersilene suture was then anchored through the fascia and attached to the orbicularis to elevate the lateral brow. Complete hemostasis was achieved with bipolar cauterization. The skin and orbicularis muscle were then closed using running 6-0 prolene suture. In a similar fashion in the opposite eye, the skin was marked and opened. A flap developed and excised. The brow dissected and elevated. The skin closed and dressed with topical antibiotic ointment. A ice compress was applied for ten minutes. The patient left the OR in good condition with instruction to rest at home the remainder of the day with intermittant icing of the wound. May Perea MD documented in this encounter [facility] 01-29-2025 History of Present illness Narrative Images from the original note were not included. Patient ID: Farrukh Babb is a 79 y.o. male who presents for: Pt has a bump on his right hand which has been there for about 2 weeks. He does not recall any injury and states it never bruised but it does turn pretty red. He lost some strength in his hand. Review of Systems Some arthritic complaints in both hands. Denies paresthesias Objective The patient is pleasant and in no acute distress The patient has good eye contact and clear speech On his right hand proximally 1 in distal to the wrist joint proper in the region of the 3rd extensor tendon of the fingers, is an approximately 3/4 x 1-1/4 lesion. This lesion is smooth and mildly tender to palpation. It does come and go when the patient flexes and extends his wrist. There is no increased erythema, calor, bruising in the area. The skin is otherwise warm and dry. Visit Vitals Ht 5' 10 Wt 179 lb BMI 25.68 kg/m Smoking Status Never BSA 2 m Allergies Allergen Reactions Clarithromycin Nausea Only Famotidine Other Reaction(s): fatigue Methocarbamol Other Current Outpatient Medications on File Prior to Visit Medication Sig Dispense Refill aspirin (ASPIR) 81 MG EC tablet Take 81 mg by mouth in the morning. [facility] Senna Plus 8.6-50 MG tablet Take 2 tablets by mouth Daily as needed. ketorolac (Acular) 0.5 % ophthalmic solution 1 drop in the morning and 1 drop before bedtime. latanoprost (Xalatan) 0.005 % ophthalmic solution INSTILL 1 DROP INTO BOTH EYES AT BEDTIME 2.5 mL 6 Multiple Vitamins-Minerals (ONE DAILY ADULTS 50+ PO) 1 (one) time each day at the same time. Probiotic Product (PROBIOTIC 10 ULTRA STRENGTH PO) Take 1 capsule by mouth in the morning. No current facility-administered medications on file prior to visit. 1. Ganglion cyst of tendon sheath of right hand (Primary) Acute problem. He states it is already tender. I did explain to him that I think it is a ganglion cyst of either the tendon sheath proper or could even be coming out of the wrist since it definitively changes when he flexes and extends the wrist. Either way, the next step for him would be referral either to orthopedics or hand specialist up in [place]. After discussing this he just wants to hold off and no referral is made. 2. Mixed hyperlipidemia (CMS/HCC) Chronic problem, patient notes he needs a refill of his prescription. - atorvastatin (Lipitor) 40 MG tablet; Take 1 tablet (40 mg) by mouth at bedtime Dispense: 90 tablet; Refill: 1 documented in this encounter [facility] 01-23-2025 Note Right Eye Strategy was DAVID. Reliability was good. Progression has no prior data. Foveal threshold was reduced. Findings include superior altitudinal defect. Left Eye Strategy was DAVID. Reliability was good. Progression has no prior data. Foveal threshold was reduced. Findings include superior altitudinal defect. Notes Superior field loss > 35 degrees that improves with manual elevation Marginal reflex distance (MRD) 0.2mm OU [facility] 01-23-2025 History of Present illness Narrative Assessment/Plan Plan brow lift and blepharoplasty Rba explained documented in this encounter [facility] 12-17-2024 Hospital Discharge instructions Patient Education 12/17/2024 09:57:48 Kidney Stones, Mgzx-ed-Secr Kidney Stones Kidney stones are rock-like masses [...] pee. The stone usually leaves your body through your pee. A doctor may need to take out the stone. What are the causes? Kidney stones may be caused by: Too much calcium in the body. This may be caused by too much parathyroid hormone in the blood. Uric acid crystals in the bladder. The body makes uric acid when you eat certain foods. Narrowing of one or both of the ureters. A kidney blockage that you were born with. Past surgery on the kidney or the ureters. What increases the risk? You are more likely to develop this condition if: You have had a kidney stone in the past. Other people in your family have had kidney stones. You do not drink enough water. You eat a diet that is high in protein, salt (sodium), or sugar. You are very overweight (obese). What are the signs or symptoms? Symptoms of a kidney stone may include: Pain in the side of the belly, right below the ribs. Pain usually spreads to the groin. Needing to pee often or right away. Pain when peeing. Blood in your pee. Feeling like you may vomit (nauseous). Vomiting. Fever and chills. How is this treated? Treatment depends on the size, location, and makeup of the kidney stones. The stones will often pass out of the body when you pee. You may need to: Drink more fluid to help pass the stone. ?In some cases, you may be given fluids through an IV tube at the hospital. Take medicine for pain. Change your diet to help keep kidney stones from coming back. Sometimes, you may need: A procedure to break up kidney stones using a beam of light (laser) or shock waves. Surgery to remove the kidney stones. Follow these instructions at home: Medicines Take ghnn-kba-mbcfgdw and prescription medicines only as told by your doctor. Ask your doctor if the medicine prescribed to you requires you to avoid driving or using machinery. Eating and drinking Drink enough fluid to keep your pee pale yellow. ?You may be told to drink at least 8 10 glasses of water each day. This will help you pass the stone. If told by your doctor, change your diet. You may be told to: ?Limit how much salt you eat. ?Eat more fruits and vegetables. ?Limit how much meat, poultry, fish, and eggs you eat. Follow instructions from your doctor about what you may eat and drink. General instructions Collect pee samples as told by your doctor. You may need to collect a pee sample: ?24 hours after a stone comes out. ?8 12 weeks after a stone comes out, and every 6 12 months after that. Strain your pee every time you pee. Use the strainer that your doctor recommends. Do not throw out the stone. Keep it so that it can be tested by your doctor. Keep all follow-up visits. You may need X-rays and ultrasounds to make sure the stone has come out. How is this prevented? To prevent another kidney stone: Drink enough fluid to keep your pee pale yellow. This is the best way to prevent kidney stones. Eat healthy foods. Avoid certain foods as told by your doctor. You may be told to eat less protein. Stay at a healthy weight. Where to find more information National Kidney Foundation (NKF): kidney.org Urology Care Foundation (UCF): urologyhealth.org Contact a doctor if: You have pain that gets worse or does not get better with medicine. Get help right away if: You have a fever or chills. You get very bad pain. You get new pain in your belly. You faint. You cannot pee. This information is not intended to replace advice given to you by your health care provider. Make sure you discuss any questions you have with your health care provider. Document Revised: 06/16/2023 Document Reviewed: 06/16/2023 [employer] Patient Education 2023 [employer]. Follow Up Care 12/12/2023 09:16:53 With:RITESH VO, SUPRIYA Abrams, URL Address: [address] [place] [address] When: Unknown [facility] 12-17-2024 Note Patient Education Urology Kidney Stones Kidney stones are rock-like masses that form inside of the kidneys. Kidneys are organs that make pee (urine). A kidney stone may move into other parts of the urinary tract, including: ??? The tubes that connect the kidneys to the bladder (ureters). ??? The bladder. ??? The tube that carries urine out of the body (urethra). Kidney stones can cause very bad pain and can block the flow of pee. The stone usually leaves your body through your pee. A doctor may need to take out the stone. What are the causes? Kidney stones may be caused by: ??? Too much calcium in the body. This may be caused by too much parathyroid hormone in the blood. ??? Uric acid crystals in the bladder. The body makes uric acid when you eat certain foods. ??? Narrowing of one or both of the ureters. ??? A kidney blockage that you were born with. ??? Past surgery on the kidney or the ureters. What increases the risk? You are more likely to develop this condition if: ??? You have had a kidney stone in the past. ??? Other people in your family have had kidney stones. ??? You do not drink enough water. ??? You eat a diet that is high in protein, salt (sodium), or sugar. ??? You are very overweight (obese). What are the signs or symptoms? Symptoms of a kidney stone may include: ??? Pain in the side of the belly, right below the ribs. Pain usually spreads to the groin. ??? Needing to pee often or right away. ??? Pain when peeing. ??? Blood in your pee. ??? Feeling like you may vomit (nauseous). ??? Vomiting. ??? Fever and chills. How is this treated? Treatment depends on the size, location, and makeup of the kidney stones. The stones will often pass out of the body when you pee. You may need to: ??? Drink more fluid to help pass the stone. ? In some cases, you may be given fluids through an IV tube at the hospital. ??? Take medicine for pain. ??? Change your diet to help keep kidney stones from coming back. Sometimes, you may need: ??? A procedure to break up kidney stones using a beam of light (laser) or shock waves. ??? Surgery to remove the kidney stones. Follow these instructions at home: Medicines ??? Take lfbq-pte-lgwomkg and prescription medicines only as told by your doctor. ??? Ask your doctor if the medicine prescribed to you requires you to avoid driving or using machinery. Eating and drinking ??? Drink enough fluid to keep your pee pale yellow. ? You may be told to drink at least 8?10 glasses of water each day. This will help you pass the stone. ??? If told by your doctor, change your diet. You may be told to: ? Limit how much salt you eat. ? Eat more fruits and vegetables. ? Limit how much meat, poultry, fish, and eggs you eat. ??? Follow instructions from your doctor about what you may eat and drink. General instructions ??? Collect pee samples as told by your doctor. You may need to collect a pee sample: ? 24 hours after a stone comes out. ? 8?12 weeks after a stone comes out, and every 6?12 months after that. ??? Strain your pee every time you pee. Use the strainer that your doctor recommends. ??? Do not throw out the stone. Keep it so that it can be tested by your doctor. ??? Keep all follow-up visits. You may need X-rays and ultrasounds to make sure the stone has come out. How is this prevented? To prevent another kidney stone: ??? Drink enough fluid to keep your pee pale yellow. This is the best way to prevent kidney stones. ??? Eat healthy foods. ??? Avoid certain foods as told by your doctor. You may be told to eat less protein. ??? Stay at a healthy weight. Where to find more information ??? National Kidney Foundation (NKF): kidney.org ??? Urology Care Foundation (UCF): urologyhealth.org Contact a doctor if: ??? You have pain that gets worse or does not get better with medicine. Get help right away if: ??? You have a fever or chills. ??? You get very bad pain. ??? You get new pain in your belly. ??? You faint. ??? You cannot pee. This information is not intended to replace advice given to you by your health care provider. Make sure you discuss any questions you have with your health care provider. Document Revised: 06/16/2023 Document Reviewed: 06/16/2023 [employer] Patient Education ? 2023 [employer]. [facility] 11-19-2024 History of Present illness Narrative Images from the original note were not included. Patient ID: Farrukh Babb is a 79 y.o. male who presents for: Patient is presenting for his annual Medicare wellness. Overall he is doing well and denies any current problems or new problems. Unfortunately there was technical difficulty with importing the [employer] sherin for his Medicare wellness, , however one can see the scanned document and questionnaire errors in his chart. I also reviewed his patient care team and it is up to date. Review of Systems Constitutional: Negative for fatigue and unexpected weight change. Respiratory: Negative for cough and shortness of breath. Cardiovascular: Negative for chest pain and palpitations. Gastrointestinal: Negative for constipation, diarrhea and nausea. Genitourinary: Negative for difficulty urinating and urgency. Musculoskeletal: Positive for back pain. Negative for gait problem. Objective The patient is pleasant and in no acute distress. The head is normocephalic and atraumatic. Both eyes appear grossly normal without obvious lid pathology or icterus. Both ears hearing is grossly intact. The neck is supple and trachea is midline. No masses are appreciated. The anterior cervical lymphatics demonstrates shoddy bilateral nontender lymphadenopathy. There is no supraclavicular lymphadenopathy. The heart is regular rate and rhythm without S3, S4. No murmur. The patient has normal respiratory pattern. The breath sounds are symmetrical without evidence of rhonchi or rales. No wheezing. The skin is warm and dry. The lower extremities have trace edema. Neurologic screening exam is nonfocal. The patient is alert. There is no overt gross evidence of cognitive impairment The patient has good eye contact and speech is clear. Appropriate affect. Visit Vitals BP 126/84 (BP Location: Right arm) Ht 5' 10 Wt 179 lb BMI 25.68 kg/m Smoking Status Never BSA 2 m Allergies Allergen Reactions Clarithromycin Nausea Only Famotidine Other Reaction(s): fatigue Methocarbamol Other Current Outpatient Medications on File Prior to Visit Medication Sig Dispense Refill aspirin (ASPIR) 81 MG EC tablet Take 81 mg by mouth in the morning. atorvastatin (Lipitor) 40 MG tablet Take 1 tablet (40 mg) by mouth at bedtime 90 tablet 1 [facility] Senna Plus 8.6-50 MG tablet Take 2 tablets by mouth Daily as needed. ketorolac (Acular) 0.5 % ophthalmic solution 1 drop in the morning and 1 drop before bedtime. latanoprost (Xalatan) 0.005 % ophthalmic solution Administer 1 drop into both eyes at bedtime 2.5 mL 6 Multiple Vitamins-Minerals (ONE DAILY ADULTS 50+ PO) 1 (one) time each day at the same time. Probiotic Product (PROBIOTIC 10 ULTRA STRENGTH PO) Take 1 capsule by mouth in the morning. No current facility-administered medications on file prior to visit. 1. Encounter for Medicare annual wellness exam (Primary) The patient is here for their Annual Medicare Wellness visit. Demographics were updated. Self-assessment was completed and reviewed. Past medical, family, and social history were updated. The medication list updated and reviewed by the doctor. A list of other current medical providers is established and updated. Time was spent discussing health maintenance issues, ordering testing as appropriate, and a schedule was reviewed regarding recommended screening. We discussed safety issues and fall risk. Depression screening was completed and addressed as appropriate. Fall screening was completed and addressed. Cognitive function was assessed by direct observation, cognitive screening as indicated, and assessment of ability to perform ADL's. The BMI and discussed. Major risk factors for chronic disease including family history were discussed. An after visit summary is made available to the patient 2. Advance directive in chart No changes to his advanced directives 3. Encounter for screening for other disorder Clinically insignificant depression screening 4. Screening for alcohol problem Negative alcohol screening 5. Overweight Stable and he has not active lifestyle. 6. Mixed hyperlipidemia (CMS/HCC) Chronic problem, stable, continue current treatment and monitor longitudinally. 7. Primary open angle glaucoma (POAG) of both eyes, mild stage (CMS/HCC) Managed by Ophthalmology. 8. Abdominal aortic atherosclerosis (CMS/HCC) Chronic problem that is stable. He has no evidence of arterial insufficiency or claudication In his lower extremities. Monitor longitudinally. documented in this encounter [facility] 08-27-2024 History of Present illness Narrative Images from the original note [...] CBC and differential documented in this encounter [facility] 08-12-2024 History of Present illness Narrative Images from the original note [...] exposure As above documented in this encounter [facility] 08-08-2024 History of Present illness Narrative Images from the original note [...] different lens options were explained including the rcx-tk-[id number] fees for any upgrades. Intraocular lens (IOL) [...] (OU) at bedtime. documented in this encounter [facility] 11-30-2023 Evaluation note Encounter Date Diagnosis [...] negative findings were considered in medical decision-making. [employer] Other [id number] History of Present illness Narrative* Wen Maza MD - 10/19/2023 9:00 AM EST [...] ADLs. 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 [...] to call if further questions arise, sincerely, Wen Maza MD [facility] Follow up : prn Provider Attestation - Scribe documentation All medical record entries made by the Scribe were at my direction and personally dictated by me. Ihave reviewed the chart and agree that the record accurately reflects my personal performance of the history, physical exam, discussion and plan. Wen Maza MD Scribe Attestation By signing my name below, I, Shena Clark LPN , Shavonne attest that this documentation has been prepared under the direction and in the presence of Wen Maza MD. documented in this [facility] Work Phone: 1(548) 721-811712-14-2023 Instructions* Patient Instructions* Shena Hermosillo LPN - [...] Follow up as needed. documented in this [facility] Work Phone: [phone]) 667-396802-06-2023 Hospital Discharge instructions Patient Education 12/12/2022 08:36:02 Kidney Stones, Psla-lg-Ovsj Kidney Stones Kidney stones are rock-like masses [...] Follow these instructions at home: Medicines Take owmz-ajo-ppxeddl and prescription medicines only as told by [...] 04/10/2009 Document Revised: 03/10/2020 Document Reviewed: 03/10/2020 [employer] Patient Education 2019 [employer]. Follow Up Care 09/20/2021 09:24:32 With:MAGDI MAHONEY, Marco A Dwyer, URL Address: [facility] [address], [place] [address]- [phone] When:12/12/2023 Comments:ROSLYN [facility] evaluation + Plan note Future Appointments Appointment Date:12/18/2023 09:45:00 AM Scheduled Provider:Marco A LICONA MD Location:[facility] Appointment Type:URO Office Visit [facility] evaluation + Plan note Future Appointments Appointment Date:06/09/2026 08:20:00 AM Scheduled Provider:SUPRIYA AWAD PA-C Location:[facility] Appointment Type:URO Office Visit [facility] evaluation noteNo assessment information available [facility] Work Phone: Evaluation note* Diagnosis Atherosclerosis of port lions coronary artery of port lions heart without angina pectoris Mixed hyperlipidemia Benign prostatic hyperplasia, unspecified whether lower urinary tract symptoms present Essential hypertension Unspecified essential hypertension documented in this encounter [facility] Work Phone: Evaluation note* Diagnosis Age-related nuclear cataract of both eyes- Primary Primary open angle glaucoma (POAG) of both eyes, mild stage (CMS/HCC) documented in this encounter [facility]* Diagnosis 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 documented in this encounter [facility]* Diagnosis Mixed hyperlipidemia (CMS/HCC)- Primary Mixed hyperlipidemia Chronic fatigue Other malaise and fatigue Screening for diabetes mellitus (DM) Screening for diabetes mellitus Iron deficiency anemia due to chronic blood loss Iron deficiency anemia secondary to blood loss (chronic) documented [facility]* Diagnosis Encounter for Medicare annual wellness exam- Primary Advance directive in chart Encounter for screening for other disorder Screening for alcohol problem Screening for alcoholism Overweight Mixed hyperlipidemia (CMS/HCC) Mixed hyperlipidemia Primary open angle glaucoma (POAG) of both eyes, mild stage (CMS/HCC) Abdominal aortic atherosclerosis (CMS/HCC) Atherosclerosis of aorta documented [facility]* Diagnosis Loss of peripheral visual field, bilateral- Primary 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 documented [facility] encounter [facility]* Diagnosis Brow ptosis- Primary Dermatochalasis of both upper eyelids documented [facility]* Diagnosis Ganglion cyst of tendon sheath of right hand- Primary Mixed hyperlipidemia (CMS/HCC) Mixed hyperlipidemia [facility]* Diagnosis Postoperative care for cataract- Primary Follow-up examination, following other surgery [facility]* Diagnosis Left cervical radiculopathy- Primary [facility] Narrative - Reported* Type Description Date Medical History hyperlipidemia Surgical History appendectomy 1964 Surgical History hernia repair 2001 Surgical History carpal tunnel release 2004 Surgical History neck surgery x 3 [id number] [employer] Other History of Present illness Narrative* The [...] medication regimen. He denies medication side effects. [facility] [address] DO Work Phone: Hospital course Narrative No data available for this section [facility] Hospital Discharge instructions Additional Instructions Be sure [...] can cause problems such as ulcers or bleeding.[facility] Work Phone: Progress note No data available for this section [facility] Family History Unknown Family Member Name Dates [...] Documents on File Type Date Recorded Patient Credit Review Analyst Expl anation Power of Ip Architect 10/17/2023 9:31 AM 04-06 POA Advance Directives and Living Will 10/17/2023 [...] ADLs. 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 [...] section and content) DATE CREATED AUTHOR 03/06/2022 [facility] dical Specialist DATE CREATED AUTHOR AUTHOR'S ORGANIZ ATION 10/15/2022 [facility] DATE CREATED AUTHOR AUTHOR'S ORGANIZ ATION 10/26/2022 [facility] DATE CREATED AUTHOR AUTHOR'S ORGANIZ ATION 10/26/2022 [employer] DATE CREATED AUTHOR AUTHOR'S ORGANIZ ATION 11/11/2023 [facility] DATE CREATED AUTHOR AUTHOR'S ORGANIZ ATION 08/26/2024 [facility] DATE CREATED AUTHOR AUTHOR'S ORGANIZ ATION 12/18/2024 [facility] DATE CREATED AUTHOR AUTHOR'S ORGANIZ ATION 02/11/2025 [facility] EPIC Patient Care team informatio n (unrecognized section and content) Team Status: Active Member Role Status Dates Grady Romeo MD Primary Care Provider Active Team Status: Inactive Member Role Status Dates Grady Romeo MD Primary Care Provider Active Ender Aguilar Jr, MD Emergency Provider Active Billing Customer Service Representative Relationship Specialty Start Date End Date Grady Romeo MD [address] [phone] PCP - General 11/06/99 Team Status: Inactive Member Role Status Dates Grady Romeo MD Primary Care Provider, Attending Provider Active Billing Customer Service Representative Relationship Specialty Start Date End Date Grady Romeo MD [address] [place] [address] (Fax) PCP - [employer] 11/06/20 Grady Romeo MD [address] [place] [address] (Fax) PCP - General Family Medicine 03/14/23 Marco A Licona MD [address] [place] [address] Referring Physician Urology 10/17/23 [place] [address] [place] [phone] Referring Physician Cardiology 10/17/23 Billing Customer Service Representative Relationship Specialty Start Date End Date Grady Romeo MD [address] [place] [address] (Fax) PCP - [employer] 11/06/20 Grady Romeo MD [address] [place] [address] (Fax) PCP - General Family Medicine 03/14/23 Marco A Licona MD [address] [place] [address] Referring Physician Urology 10/17/23 [place] [address] [place] [phone] Referring Physician Cardiology 10/17/23 Billing Customer Service Representative Relationship Specialty Start Date End Date Grady Romeo MD [address] [place] [address] (Fax) PCP - [employer] 11/06/20 Grady Romeo MD [address] [place] [address] (Fax) PCP - General Family Medicine 03/14/23 Marco A Licona MD [address] [place] [address] Referring Physician Urology 10/17/23 [place] [address] [phone] Referring Physician Cardiology 10/17/23 Billing Customer Service Representative Relationship Specialty Start Date End Date Grady Romeo MD [address] [place] [address] (Fax) PCP - [employer] 11/06/20 Grady Romeo MD [address] [place] [address] (Fax) PCP - General Family Medicine 03/14/23 Marco A Licona MD [address] [place] [address] Referring Physician Urology 10/17/23 [place] [address] [place] [phone] Referring Physician Cardiology 10/17/23 Billing Customer Service Representative Relationship Specialty Start Date End Date Grady Romeo MD [address] [place] [address] (Fax) PCP - [employer] 11/06/20 Grady Romeo MD [address] [place] [address] (Fax) PCP - General Family Medicine 03/14/23 Marco A Licona MD [address] [place] [address] Referring Physician Urology 10/17/23 [place] [address] [place] [phone] Referring Physician Cardiology 10/17/23 Billing Customer Service Representative Relationship Specialty Start Date End Date Grady Romeo MD [address] [place] [phone] (Fax) PCP - [employer] 11/06/20 Grady Romeo MD [address] [place] [address] (Fax) PCP - General Family Medicine 03/14/23 Marco A Licona MD [address] [place] [address] Referring Physician Urology 10/17/23 [place] [address] [place] [phone] Referring Physician Cardiology 10/17/23 Billing Customer Service Representative Relationship Specialty Start Date End Date Grady Romeo MD [address] [place] [address] (Fax) PCP - [employer] 11/06/20 Grady Romeo MD [address] [place] [address] (Fax) PCP - General Family Medicine 03/14/23 Marco A Licona MD [address] [place] [address] Referring Physician Urology 10/17/23 [place] [address] [place] [phone] Referring Physician Cardiology 10/17/23 Billing Customer Service Representative Relationship Specialty Start Date End Date Grady Romeo MD [address] [place] [address] (Fax) PCP - [employer] 11/06/20 Grady Romeo MD [address] [place] [address] (Fax) PCP - General Family Medicine 03/14/23 Marco A Licona MD [address] [place] [address] Referring Physician Urology 10/17/23 [place] [address] [place] [phone] Referring Physician Cardiology 10/17/23 Billing Customer Service Representative Relationship Specialty Start Date End Date Grady Romeo MD [address] [place] [address] (Fax) PCP - [employer] 11/06/20 Grady Romeo MD [address] [place] [address] (Fax) PCP - General Family Medicine 03/14/23 Marco A Licona MD [address] [place] [address] Referring Physician Urology 10/17/23 Kandy Longoria DO [address] [place] [address] Referring Physician Ophthalmology 11/19/24 Billing Customer Service Representative Relationship Specialty Start Date End Date Grady Romeo MD [address] [place] [address] (Fax) PCP - [employer] 11/06/20 Grady Romeo MD [address] [place] [address] (Fax) PCP - General Family Medicine 03/14/23 Marco A Licona MD [address] [place] [address] Referring Physician Urology 10/17/23 Kandy Longoria DO [address] [place] [address] Referring Physician Ophthalmology 11/19/24 Billing Customer Service Representative Relationship Specialty Start Date End Date Grady Romeo MD [address] [place] [address] (Fax) PCP - [employer] 11/06/20 Grady Romeo MD [address] [place] [address] (Fax) PCP - General Family Medicine 03/14/23 Marco A Licona MD [address] [place] [address] Referring Physician Urology 10/17/23 Kandy Longoria DO [address] [place] [address] Referring Physician Ophthalmology 11/19/24 Billing Customer Service Representative Relationship Specialty Start Date End Date Grady Romeo MD [address] [place] [address] (Fax) PCP - [employer] 11/06/20 Grady Romeo MD [address] [place] [address] (Fax) PCP - General Family Medicine 03/14/23 Marco A Licona MD [address] [place] [address] Referring Physician Urology 10/17/23 Kandy Longoria DO [address] [place] [address] Referring Physician Ophthalmology 11/19/24 Billing Customer Service Representative Relationship Specialty Start Date End Date Grady Romeo MD [address] [place] [address] PCP - [employer] 11/06/20 Grady Romeo MD [address] [place] [address] PCP - General Family Medicine 03/14/23 Marco A Licona MD [address] [place] [address] Referring Physician Urology 10/17/23 Kandy Longoria DO [address] [place] [address] Referring Physician Ophthalmology 11/19/24 Billing Customer Service Representative Relationship Specialty Start Date End Date Grady Romeo MD [address] [place] [address] PCP - [employer] 11/06/20 Grady Romeo MD [address] [facility] [address] [place] [address] PCP - General Family Medicine 03/14/23 Marco A Licona MD [address] [place] [address] Referring Physician Urology 10/17/23 Kandy Longoria DO [address] [facility] [address] [place] [address] Referring Physician Ophthalmology 11/19/24 Goals (unrecognized section and content) Goals may be documented in a n alternate section Reason for Visit (unrecogniz ed section and content) Reason Comments Annual Exam Reason Comments Blurred Vision Reason Comments Hyperlipidemia Reason Comments Eye Problem Ptosis Reason Comments Procedure Reason Comments Hand Pain Reason Comments Post-op Follow-up Reason Comments Shoulder Pain FOR RECORDS PERTAINING TO PATIENTS WHO ARE [...] BE BASED ON THE PRIMARY CLINICAL RECORDS. [employer] [facility]. provides no warranty or guarantee of the accuracy or completeness of information in this document.
--- NOTE | 2025-02-18 00:53 | PC.NURSE ---
Pt states that he feels like he cant take a deep breath STates that he has been belching a lot Pt states that he was blaming it all his daughters chili but it is not getting better. Pt states that he had some O2 at home(from his previous job) and tried that but it did not help. Lung sound are dim thru out PUlse ox is 95% on room air.
--- NOTE | 2025-02-18 00:55 | ED.SOB1 ---
HPI - SOB/Dyspnea General Chief Complaint: Shortness of Breath/Dyspnea Stated Complaint: SOB Time Seen by Provider: 02/18/25 00:49 Source: patient Mode of arrival: walk-in Limitations: no limitations History of Present Illness HPI Narrative: presents with complaint of belching for past 1.5 days with deep breath. Tonight he felt short of breath when lying supine. No chest pain or nausea. no fever or chills. Drove himself to the hospital Related Data Home Medications ?Medication ?Instructions ?Recorded ?Confirmed atorvastatin 40 mg tablet mg 02/18/25 ketorolac 0.5 % eye drops drp ophthalmic (eye) 02/18/25 Allergies Allergy/AdvReac Type Severity Reaction Status Date / Time No Known Drug Allergies Allergy Verified 02/18/25 00:18 Review of Systems ROS Status of ROS 10 or more systems reviewed and unremarkable except as noted in history and below PFSH PFSH Social History Little interest or pleasure in doing things: not at all Feeling down, depressed, or hopeless: not at all Exam Constitutional Vital Signs, click to edit/add: Last Vital Signs Temp 98.2 F 02/18/25 00:18 Pulse 89 02/18/25 03:30 Resp 20 02/18/25 03:30 BP 132/80 02/18/25 04:29 Pulse Ox 94 L 02/18/25 03:00 O2 Del Method Room Air 02/18/25 00:18 Common normals: no apparent distress, average body habitus, oriented x3, no limitations, healthy appearing, alert and well nourished [facility] Common normals: normocephalic and head/scalp atraumatic Eye Common normals: PERRL, EOMs intact bilaterally and conjunctivae normal Respiratory Common normals: normal respiratory effort, no retractions, no use of accessory muscles and clear to auscultation bilaterally Cardio Common normals: regular rate, regular rhythm, S1 normal heart sound and S2 normal heart sound GI Common normals: Normal to inspection, nondistended, normoactive bowel sounds present, soft to palpation and non-tender Extremity Common normals: normal to inspection and full ROM Neuro Common normals: oriented x3, CN's II-XII intact bilaterally and moves all extremities Psych Appearance: grossly normal Course Vital Signs Vital signs: Vital Signs Temperature 98.2 F 02/18/25 00:18 Pulse Rate 92 H 02/18/25 00:18 Respiratory Rate 18 02/18/25 00:18 Blood Pressure 164/95 H 02/18/25 00:18 Pulse Oximetry 95 02/18/25 00:18 Oxygen Delivery Method Room Air 02/18/25 00:18 Temperature 98.2 F 02/18/25 00:18 Pulse Rate 89 02/18/25 03:30 Respiratory Rate 20 02/18/25 03:30 Blood Pressure 132/80 02/18/25 04:29 Pulse Oximetry 94 L 02/18/25 03:00 Oxygen Delivery Method Room Air 02/18/25 00:18 MDM - SOB/Dyspnea MDM Narrative Medical decision making narrative: atypical presentation. with a deep breath he belches. States he becomes short of breath when lying supine. Did have the patient lay down supine while here in the department and vitals remained normal including pulse ox.. No sign of dyspnea but did belch more. No discomfort and the belch was short and rapid. workup in the department neg including troponin and d-dimer. Cxray without findings of CHF. Patient treated with baclofen and GI cocktail and this appeared to help some. No clear etiology for his presentation at this visit. Discharged to follow up with his doctor and can continue workup as an out patient Lab Data Labs: Lab Results 02/18/25 02/18/25 Range/Units 01:05 03:27 WBC 9.0 (4.0-11.0) 10^3/uL RBC 3.96 L (4.70-6.10) 10^6/uL Hgb 12.8 L (14.0-18.0) g/dL Hct 37.7 L (42.0-54.0) % MCV 95.2 H (80.0-94.0) fL MCH 32.3 (25.9-34.0) pg MCHC 34.0 (29.9-35.2) g/dL RDW 12.9 (11.0-15.0) % Plt Count 217 (150-450) 10^3/uL MPV 9.6 (9.5-13.5) fL Neut % (Auto) 62.8 (43.0-75.0) % Lymph % (Auto) 19.1 L (20.5-60.0) % Amelia % (Auto) 11.3 (1.7-12.0) % Eos % (Auto) 6.0 (0.9-7.0) % Baso % (Auto) 0.6 (0.2-2.0) % Neut # (Auto) 5.7 (1.4-6.5) 10^3/uL Lymph # (Auto) 1.7 (1.2-3.8) 10^3/uL Amelia # (Auto) 1.0 H (0.3-0.8) 10^3/uL Eos # (Auto) 0.5 (0.0-0.7) 10^3/uL Baso # (Auto) 0.1 (0.0-0.1) 10^3/uL Abs Immat Gran (auto) 0.02 (0.00-0.03) 10^3/uL Imm/Tot Granulo (auto) 0.2 (0.0-0.5) % D-Dimer 0.24 (<=0.59) mg/L FEU Sodium 144 (136-145) mmol/L Potassium 4.1 (3.5-5.1) mmol/L Chloride 106 (98-107) mmol/L Carbon Dioxide 31.0 (21.0-32.0) mmol/L Anion Gap 11.1 BUN 29.0 H (7.0-18.0) mg/dL Creatinine 1.01 (0.70-1.30) mg/dL Est GFR ( Amer) >60 (>=60 mL/min/1.73m^2) Est GFR (Non-Af Amer) >60 (>=60 mL/min/1.73m^2) BUN/Creatinine Ratio 28.7 Glucose 109 H (74-106) mg/dL Calcium 9.2 (8.5-10.1) mg/dL Troponin I High Sens 14.9 16.1 (4.0-76.1) pg/mL NT-Pro-B Natriuret Pep 145.0 (<=1800.0) pg/mL Discharge Plan Discharge Chief Complaint: Shortness of Breath/Dyspnea Clinical Impression: Belching Patient Disposition: Home, Self-Care Prescriptions / Home Meds: No Action atorvastatin 40 mg tablet ketorolac 0.5 % drops OPHTHALMIC (EYE) Print Language: B[place] Instructions: Gas and Bloating (ED) Additional Instructions: follow up with Dr Romeo Referrals: RHODA ROMEO [Primary Care Provider] - 1 week
[2025-02-18 01:12] LABS: Basophils Absolute Auto 0.1 10^3/uL (0.0-0.1); Basophils Percent Auto 0.6 % (0.2-2.0); Eosinophils Absolute Auto 0.5 10^3/uL (0.0-0.7); Hematocrit 37.7 % (42.0-54.0); Hemoglobin 12.8 g/dL (14.0-18.0); Immature Granulocytes Abs Auto 0.02 10^3/uL (0.00-0.03); Immature Granulocytes Pct Auto 0.2 % (0.0-0.5); Lymphocytes Absolute Auto 1.7 10^3/uL (1.2-3.8); Lymphocytes Percent Auto 19.1 % (20.5-60.0); Mean Corpuscular Hemoglobin 32.3 pg (25.9-34.0); Mean Corpuscular Volume 95.2 fL (80.0-94.0); Mean Platelet Volume 9.6 fL (9.5-13.5); Monocytes Percent Auto 11.3 % (1.7-12.0); Neutrophils Absolute Auto 5.7 10^3/uL (1.4-6.5); Neutrophils Percent Auto 62.8 % (43.0-75.0); Platelet Count 217 10^3/uL (150-450); Red Blood Count 3.96 10^6/uL (4.70-6.10); Red Cell Distribution Width 12.9 % (11.0-15.0)
[2025-02-18] MEDS: BACLOFEN 10 MG TABLET PO (01:20)
[2025-02-18 01:26] LABS: D Dimer 0.24 mg/L FEU (<=0.59)
[2025-02-18 01:37] LABS: Anion Gap 11.1; BUN Creatinine Ratio 28.7; Calcium 9.2 mg/dL (8.5-10.1); Chloride 106 mmol/L (98-107); Estimated GFR (African America >60 (>=60 mL/min/1.73m^2); Estimated GFR (Non-African Ame >60 (>=60 mL/min/1.73m^2); Glucose 109 mg/dL (74-106); Potassium 4.1 mmol/L (3.5-5.1); Sodium 144 mmol/L (136-145); Troponin I High Sensitivity 14.9 pg/mL (4.0-76.1)
[2025-02-18 04:01] LABS: Troponin I High Sensitivity 16.1 pg/mL (4.0-76.1)
[2025-02-18] MEDS: lidocaine HCL 15 ML, MAG HYDROX/ALUMINUM HYD/SIMETH 30 ML, HYOSCYAMINE SULFATE 0.25 MG PO (04:50)
--- NOTE | 2025-02-18 05:15 | ECG_ITS ---
[facility] Test Date: 2025-02-18 Pat Name: MARYAN SOLIS Department: Room: - Gender: Male Icu Nurse: : 1945 Requested By: [id number] Order Number: [id number] Reading MD: LANI RAJPUT M.D. Measurements Intervals [place] Rate: 96 P: 67 [place]: 200 QRS: 40 QRSD: 94 T: 44 QT: 350 QTc: 404 Interpretive Statements 1100 Sinus rhythm 1470 with occasional supraventricular premature complexes 4068 Nonspecific Twave abnormality 9140 abnormal rhythm ECG Compared to ECG 03/16/2021 07:45:02 No significant changes Electronically Signed On 02-18-2025 19:29:32 EDT by LANI RAJPUT M.D.
== END 2025-02-18 05:02 | disposition home or self-care (01) ==
PROVIDERS: Emergency Provider Internal Medicine; PCP Family Medicine
DX: R14.2 Eructation (principal); R06.02 Shortness of breath
CPT/HCPCS: 36415; 71046; 80048; 83880; 84484; 85025; 85378; 93005; 99285